=== PATIENT | female | born 1935 | race Caucasian/White ===

== ENCOUNTER 2017-08-09 21:59 | Inpatient (IN) | payer MEDICARE ==
[2017-08-09 21:59] VITALS: BMI 17.5
[2017-08-09] MEDS ORDERED: Sodium Chloride 0.9% 1,000 ML IV STA (22:20)
[2017-08-09] MEDS ORDERED: levoFLOXacin 750 mg in D5W 150 ML BAG IVPB STA (22:22)
[2017-08-09] MEDS ORDERED: levoFLOXacin 750 mg in D5W 750 MG/150 ML BAG IVPB STA (22:28)
[2017-08-09 22:44] LABS: VENOUS BLOOD GAS BASE EXCESS 4.2 mmol/L (0.0-2.0); VENOUS BLOOD GAS PCO2 50 mmHg (40-60); VENOUS BLOOD GAS PO2 24 mm/Hg (30-55); VENOUS BLOOD PH 7.39 (7.32-7.43)
--- NOTE | 2017-08-09 23:07 | ED PDOC ---
HPI: SOB/CHF/COPD Time Seen by Provider: 08/09/17 22:07 Chief Complaint (Nursing): Chest Pain Chief Complaint (Provider): Cough History Per: Patient, Family History/Exam Limitations: no limitations Onset/Duration Of Symptoms: Days (1) Additional Complaint(s): Pt reports chills, nonproductive cough, R sided chest pain and back pain X 1 day. Pt was discharged from [place] 2 weeks ago after being diagnosed with pneumonia. Past Medical History Vital Signs: Last Vital Signs Temp 98.4 F 08/15/17 08:00 Pulse 112 H 08/15/17 08:00 Resp 18 08/15/17 08:00 BP 89/53 L 08/15/17 08:00 Pulse Ox 97 08/15/17 08:00 - Medical History PMH: Arthritis, Rheumatoid Arthritis Denies: HIV, Chronic Kidney Disease - Family History Family History: States: Unknown Family Hx - Home Medications Home Medications: Ambulatory Orders Medication Instructions Recorded Calcium Carbonate/Vitamin D3 1 cap PO DAILY 08/10/17 [Calcium 600+D Softgel] Multivit-Min/FA/Lycopen/Lutein 1 tab PO DAILY 08/10/17 [Centrum Silver Tablet] - Allergies Allergies/Adverse Reactions: Allergies Allergy/AdvReac Type Severity Reaction Status Date / Time celecoxib [From Celebrex] Allergy RASH Verified 08/09/17 22:01 infliximab [From Remicade] Allergy RASH Verified 08/09/17 22:01 mesalamine Allergy RASH Verified 08/09/17 22:01 Penicillins Allergy RASH Verified 08/09/17 22:01 Sulfa (Sulfonamide Allergy RASH Verified 08/09/17 22:01 Antibiotics) Curb-65 Severity Score - CURB-65 Severity Score Confusion: No Bun >19mg/dl (>7mmol/L): No Respiratory Rate greater than/equal to 30: No Systolic BP <90 or Diastolic BP less than/equal 60mmHg: No Age >64: Yes Curb-65 Score: 1 Percentage 30-day mortality: 2.7% Review of Systems Constitutional: Positive for: Fever, Chills, Weakness Cardiovascular: Positive for: Chest Pain (R sided) Respiratory: Positive for: Cough, Shortness of Breath. Negative for: Hemoptysis , Sputum Gastrointestinal: Positive for: Nausea, Vomiting. Negative for: Abdominal Pain , Diarrhea Genitourinary Female: Negative for: Dysuria, Hematuria Musculoskeletal: Positive for: Back Pain Skin: Negative for: Rash, Lesions Neurological: Negative for: Weakness, Numbness, Incoordination, Change in Speech , Confusion, Seizures, Altered Mental Status, Headache, Dizziness Physical Exam - Reviewed Nursing Documentation Reviewed: Yes Vital Signs Reviewed: Yes - Physical Exam Appears: Positive for: Uncomfortable Head Exam: Positive for: ATRAUMATIC, NORMAL INSPECTION Skin: Positive for: Normal Color, Warm, Dry Eye Exam: Positive for: Normal appearance, EOMI, PERRL Neck: Positive for: Normal, Painless ROM, Supple Cardiovascular/Chest: Positive for: Tachycardia Respiratory: Positive for: Rhonchi. Negative for: Decreased Breath Sounds, Accessory Muscle Use, Wheezing Gastrointestinal/Abdominal: Positive for: Soft Back: Positive for: Normal Inspection Neurologic/Psych: Positive for: Alert, film reproducer II-XII, Oriented. Negative for: Motor/Sensory Deficits, Aphasia, Facial Droop - Laboratory Results Result Diagrams: 08/15/17 05:30 08/15/17 05:30 - ECG Interpretation Of ECG: ST @ 140, no ST-T changes. O2 Sat by Pulse Oximetry: 100 Pulse Ox Interpretation: Normal - Radiology X-Ray: Interpreted by Me X-Ray Interpretation: Infiltrates (RLL) Medical Decision Making Medical Decision Makin yo female with cough. - labs - EKG - CXR Accession No. : [id number] Patient Name / ID : SUZY DAILEY / [id number] Exam Date : 08/09/2017 22:49:03 ( Approved ) Study Comment : Sex / Age : F / 82Y Creator : sabra ashley Dictator : Carlos Leal MD Flower Stripper : Hand Wood Sander : Carlos Leal MD Approver2 : Report Date : 08/09/2017 22:56:50 My Comment : HISTORY: Sepsis Patient COMPARISON: 12/27/2014. 12/04/2014. FINDINGS: LUNGS: Right lower lobe infiltrate superimposed upon chronic interstitial lung disease. PLEURA: No significant pleural effusion identified, no pneumothorax apparent. CARDIOVASCULAR: No radiographic findings to suggest acute or significant cardiovascular disease. OSSEOUS STRUCTURES: No significant abnormalities. VISUALIZED UPPER ABDOMEN: Normal. OTHER FINDINGS: None. IMPRESSION: Right lower lobe infiltrate is presumed to be acute. Underlying interstitial lung disease. Disposition - Clinical Impression Clinical Impression: Pneumonia, Sepsis - Patient ED Disposition Is Patient to be Admitted: Yes - Disposition Disposition Time: 23:34 Condition: STABLE - Pt Status Changed To: Hospital Disposition Of: Inpatient - Admit Certification Admit to Inpatient:: After my assessment, the patient will require hospitalization for at least two midnights. This is because of the severity of symptoms shown, intensity of services needed, and/or the medical risk in this patient being treated as an outpatient. - POA Present On Arrival: None
[2017-08-09] MEDS ORDERED: HYDROmorphone 0.5 mg/0.5 ml ISec IVP STA (23:09)
[2017-08-09 23:27] LABS: PARTIAL THROMBOPLASTIN TIME 30.7 Seconds (25.6-37.1)
[2017-08-09 23:28] LABS: ALB/GLOB RATIO 1.1 (1.0-2.1); ALBUMIN 4.1 g/dL (3.5-5.0); ALT/SGPT 26 U/L (9-52); AST/SGOT 33 U/L (14-36); BLOOD UREA NITROGEN 15 mg/dl (7-17); CALCIUM 9.4 mg/dL (8.4-10.2); GFR AFRICAN-AMERICAN > 60; GFR NON-AFRICAN AMERICAN > 60; MAGNESIUM 1.6 MG/DL (1.6-2.3)
[2017-08-09 23:30] LABS: BASO # 0.1 K/uL (0.0-0.2); BASO % 0.6 % (0.0-2.0); EOS # 0.2 K/uL (0.0-0.7); EOS % 1.5 % (0.0-4.0); HEMOGLOBIN 12.6 g/dL (12.0-16.0); LYMPH # 0.8 K/uL (1.0-4.3); LYMPH % 8.1 % (20.0-40.0); MEAN CELL VOLUME 94.7 fl (81.0-99.0); MEAN CORPUSCULAR HEMOGLOBIN 30.6 pg (27.0-31.0); MEAN CORPUSCULAR HGB CONC 32.3 g/dL (33.0-37.0); MEAN PLATELET VOLUME 7.9 fl (7.2-11.7); MONO # 0.5 K/uL (0.0-0.8); NEUT # 8.8 K/uL (1.8-7.0); NEUT % 84.8 % (50.0-75.0); NRBC % 0.2 % (0.0-0.0); PLATELET COUNT 304 K/uL (130-400); RBC 4.12 Mil/uL (3.80-5.20); RED CELL DISTRIBUTION WIDTH 16.4 % (11.5-14.5); WHITE BLOOD COUNT 10.4 K/uL (4.8-10.8)
[2017-08-09] MEDS ORDERED: levoFLOXacin 750 mg in D5W 750 MG/150 ML BAG IVPB ONE (23:44)
[2017-08-10 01:35] LABS: ANISOCYTOSIS SLIGHT; BANDS 1 % (0-2); BASOPHIL 1 % (0-2); BURR CELLS SLIGHT; EOSINOPHIL 1 % (0-7); HYPOCHROMIC SLIGHT; LYMPHOCYTE 6 % (20-50); MONOCYTE 3 % (0-10); NEUTROPHIL 85 % (42-75); PLATELET ESTIMATE NORMAL (NORMAL); REACTIVE LYMPHOCYTES 3 % (0-0); SMUDGE CELLS PRESENT; TOTAL CELLS COUNTED 100
[2017-08-10 01:36] LABS: LARGE PLATELETS PRESENT; OVALOCYTES SLIGHT
[2017-08-10 02:40] LABS: VENOUS BLOOD GAS BASE EXCESS 0.3 mmol/L (0.0-2.0); VENOUS BLOOD GAS PCO2 48 mmHg (40-60); VENOUS BLOOD GAS PO2 36 mm/Hg (30-55); VENOUS BLOOD PH 7.35 (7.32-7.43)
[2017-08-10 05:42] LABS: SQUAMOUS EPITHIAL 1 /hpf (0-5); URINE BILIRUBIN NEGATIVE (NEGATIVE); URINE BLOOD NEGATIVE (NEGATIVE); URINE CLARITY SLIGHTY-CLOUDY (Clear); URINE COLOR YELLOW (YELLOW); URINE GLUCOSE (UA) NEG (Normal); URINE HYALINE CAST 0-2 /hpf (0-2); URINE LEUKOCYTE ESTERASE TRACE Leu/uL (Negative); URINE NITRATE NEGATIVE (NEGATIVE); URINE PROTEIN 30 mg/dL (NEGATIVE); URINE UROBILINOGEN 0.2-1.0 mg/dL (0.2-1.0)
[2017-08-10 07:42] LABS: BASO % 0.1 % (0.0-2.0); LYMPH # 0.3 K/uL (1.0-4.3); LYMPH % 2.9 % (20.0-40.0); MEAN CORPUSCULAR HEMOGLOBIN 30.9 pg (27.0-31.0); MEAN CORPUSCULAR HGB CONC 32.5 g/dL (33.0-37.0); MEAN PLATELET VOLUME 7.5 fl (7.2-11.7); MONO # 0.9 K/uL (0.0-0.8); MONO % 7.6 % (0.0-10.0); NEUT # 10.9 K/uL (1.8-7.0); NEUT % 89.4 % (50.0-75.0); NRBC % 0.1 % (0.0-0.0); RBC 3.15 Mil/uL (3.80-5.20); RED CELL DISTRIBUTION WIDTH 15.7 % (11.5-14.5); WHITE BLOOD COUNT 12.2 K/uL (4.8-10.8)
[2017-08-10 07:47] LABS: HEMOGLOBIN 9.7 g/dL (12.0-16.0)
[2017-08-10 08:05] LABS: ALBUMIN 3.1 g/dL (3.5-5.0); ALT/SGPT 26 U/L (9-52); AST/SGOT 24 U/L (14-36); BLOOD UREA NITROGEN 15 mg/dl (7-17); CALCIUM 8.4 mg/dL (8.4-10.2); GFR AFRICAN-AMERICAN > 60; GFR NON-AFRICAN AMERICAN > 60
[2017-08-10 08:18] LABS: T4 6.41 ug/dl (5.5-11.0)
[2017-08-10 08:32] LABS: T3 0.622 nmol/L (1.49-2.60)
[2017-08-10] MEDS ORDERED: levoFLOXacin 750 mg in D5W 750 MG/150 ML BAG IVPB SCH (09:00)
[2017-08-10] MEDS: Calcium-Vit D 500 mg-200 Units Tab UD PO SCH (09:00)
[2017-08-10] MEDS: Enoxaparin 40 mg Syringe SC SCH (09:00)
[2017-08-10] MEDS: Multivitamin With Minerals Tab PO SCH (09:00)
--- NOTE | 2017-08-10 13:41 | RAD ---
HISTORY: Sepsis Patient COMPARISON: 12/27/2014. 12/04/2014. FINDINGS: LUNGS: Right lower lobe infiltrate superimposed upon chronic interstitial lung disease. PLEURA: No significant pleural effusion identified, no pneumothorax apparent. CARDIOVASCULAR: No radiographic findings to suggest acute or significant cardiovascular disease. OSSEOUS STRUCTURES: No significant abnormalities. VISUALIZED UPPER ABDOMEN: Normal. OTHER FINDINGS: None. IMPRESSION: Right lower lobe infiltrate is presumed to be acute. Underlying interstitial lung disease.
--- NOTE | 2017-08-10 22:28 | CP.PCM.HP ---
<JiCamilla - Last Filed: 08/10/17 22:29> History of Present Illness - History of Present Illness History of Present Illness: 82 yr old F presented to ED with complaint of chills, nonproductive cough, right sided chest and back pain x 1 day. PMHx includes ulcerative colitis and rheumatoid arthritis. Patient reports 2 weeks ago she was discharged from [place] after a 5 day admission for pneumonia. Her symptoms had initially improved, but her 2 days ago and then her symptoms recurred and worsened 1 day ago. Denies syncope, weakness, dizziness or headaches. PMHx: ulcerative colitis and rheumatoid arthritis SurgHx: left colostomy FMHx: noncontributory SocHx: denies tobacco, Etoh or drugs Medications: see medication reconciliation Allergies: celecoxib, infliximab, mesalamin, penicillin, sulfa drugs Present on Admission - Present on Admission Any Indicators Present on Admission: No History of DVT/PE: No History of Uncontrolled Diabetes: No Urinary Catheter: No Decubitus Ulcer Present: No History Surgical Site Infection Following: None Review of Systems - Constitutional Constitutional: Chills, Fever. absent: Headache - EENT Eyes: absent: Blurred Vision, Change in Vision Ears: absent: Ear Discharge, Ear Pain Nose/Mouth/Throat: absent: Nasal Congestion, Nasal Discharge - Cardiovascular Cardiovascular: Chest Pain (right sided). absent: Dyspnea - Respiratory Respiratory: Cough. absent: Hemoptysis - Gastrointestinal Gastrointestinal: absent: Abdominal Pain, Nausea, Vomiting - Genitourinary Genitourinary: Flank Pain (right). absent: Difficulty Urinating, Dysuria - Neurological Neurological: absent: Syncope, Weakness - Psychiatric Psychiatric: absent: Anxiety - Endocrine Endocrine: absent: Polydipsia, Polyuria - Hematologic/Lymphatic Hematologic: absent: Easy Bleeding, Easy Bruising Past Patient History - Past Medical History & Family History Past Medical History?: Yes - Past Social History Smoking Status: Never Smoked - CARDIAC Hx Cardiac Disorders: No - PULMONARY Hx Pneumonia: Yes - NEUROLOGICAL Hx Neurological Disorder: No - HEENT Hx HEENT Problems: No - RENAL Hx Chronic Kidney Disease: No - ENDOCRINE/METABOLIC Hx Endocrine Disorders: No - HEMATOLOGICAL/ONCOLOGICAL Hx Human Immunodeficiency Virus (HIV): No - INTEGUMENTARY Hx Dermatological Problems: No - MUSCULOSKELETAL/RHEUMATOLOGICAL Hx Falls: No - GASTROINTESTINAL Hx Gastrointestinal Disorders: Yes Hx Colitis: Yes Hx Colostomy: Yes - GENITOURINARY/GYNECOLOGICAL Hx Genitourinary Disorders: No - PSYCHIATRIC Hx Substance Use: No - SURGICAL HISTORY Hx Surgeries: Yes Hx Orthopedic Surgery: Yes (BILATERAL KNEES, LT HIP REPLACEMENT) - ANESTHESIA Hx Anesthesia: Yes Hx Anesthesia Reactions: No Hx Malignant Hyperthermia: No Meds Allergies/Adverse Reactions: Allergies Allergy/AdvReac Type Severity Reaction Status Date / Time celecoxib [From Celebrex] Allergy RASH Verified 08/15/17 17:27 infliximab [From Remicade] Allergy RASH Verified 08/15/17 17:27 mesalamine Allergy RASH Verified 08/15/17 17:27 Penicillins Allergy RASH Verified 08/15/17 17:27 Sulfa (Sulfonamide Allergy RASH Verified 08/15/17 17:27 Antibiotics) Physical Exam - Constitutional Appears: No Acute Distress, Cachectic, Chronically Ill - Head Exam Head Exam: ATRAUMATIC, NORMOCEPHALIC - Eye Exam Eye Exam: EOMI, PERRL - ENT Exam ENT Exam: Mucous Membranes Moist - Neck Exam Neck exam: Positive for: Full Rom. Negative for: Lymphadenopathy - Respiratory Exam Respiratory Exam: Rales (RLL), NORMAL BREATHING PATTERN - Cardiovascular Exam Cardiovascular Exam: REGULAR RHYTHM, +S1, +S2 - GI/Abdominal Exam GI & Abdominal Exam: Normal Bowel Sounds, Soft (left sided colostomy bag with soft brown stool). absent: Tenderness - Extremities Exam Extremities exam: Positive for: full ROM. Negative for: calf tenderness, pedal edema - Neurological Exam Neurological exam: Alert, CN II-XII Intact, Oriented x3 - Psychiatric Exam Psychiatric exam: Normal Affect, Normal Mood - Skin Skin Exam: Dry, Warm Results - Vital Signs Recent Vital Signs: Last Vital Signs Temp 98.4 F 08/10/17 20:07 Pulse 112 H 08/10/17 20:07 Resp 20 08/10/17 20:07 BP 97/54 L 08/10/17 20:07 Pulse Ox 92 L 08/10/17 20:07 - Labs Result Diagrams: 08/10/17 06:45 08/10/17 06:45 Labs: Laboratory Results - last 24 hr 08/09/17 08/09/17 08/09/17 22:40 23:02 23:02 WBC 10.4 RBC 4.12 Hgb 12.6 Hct 39.1 MCV 94.7 MCH 30.6 MCHC 32.3 L RDW 16.4 H Plt Count 304 D MPV 7.9 Neut % (Auto) 84.8 H Lymph % (Auto) 8.1 L [place] % (Auto) 5.0 Eos % (Auto) 1.5 Baso % (Auto) 0.6 Neut # (Auto) 8.8 H Lymph # (Auto) 0.8 L [place] # (Auto) 0.5 Eos # (Auto) 0.2 Baso # (Auto) 0.1 Neutrophils % (Manual) 85 H Band Neutrophils % 1 Lymphocytes % (Manual) 6 L Reactive Lymphs % 3 H Monocytes % (Manual) 3 Eosinophils % (Manual) 1 Basophils % (Manual) 1 Smudge Cells Present Platelet Estimate Normal Large Platelets Present Hypochromasia (manual) Slight Anisocytosis (manual) Slight Ovalocytes Slight Dannielle Cells Slight PT INR APTT pO2 24 L VBG pH 7.39 VBG pCO2 50 VBG HCO3 26.7 VBG Total CO2 31.8 H VBG O2 Sat (Calc) 47.5 VBG Base Excess 4.2 H VBG Potassium 4.0 Sodium 142.0 141 Chloride 104.0 105 Glucose 141 H Lactate 2.7 H FiO2 21.0 Crit Value Called To Crit Value Called By Crit Value Read Back Blood Gas Notified Time Potassium 4.2 Carbon Dioxide 27 Anion Gap 13 BUN 15 Creatinine 0.7 Est GFR ( Amer) > 60 Est GFR (Non-Af Amer) > 60 Random Glucose 137 H Calcium 9.4 Phosphorus 2.9 Magnesium 1.6 Total Bilirubin 0.8 AST 33 ALT 26 Alkaline Phosphatase 81 Troponin I < 0.0120 Total Protein 8.0 Albumin 4.1 Globulin 3.9 Albumin/Globulin Ratio 1.1 Vitamin B12 Thyroxine (T4) Total T3 TSH 3rd Generation Venous Blood Potassium 4.0 Urine Color Urine Clarity Urine pH Ur Specific [place] Urine Protein Urine Glucose (UA) Urine Ketones Urine Blood Urine Nitrate Urine Bilirubin Urine Urobilinogen Ur Leukocyte Esterase Urine RBC (Auto) Urine Microscopic WBC Ur Squamous Epith Cells Hyaline Casts Influenza Typ A,B (EIA) 08/09/17 08/09/17 08/10/17 23:02 23:02 02:30 WBC RBC Hgb Hct MCV MCH MCHC RDW Plt Count MPV Neut % (Auto) Lymph % (Auto) [place] % (Auto) Eos % (Auto) Baso % (Auto) Neut # (Auto) Lymph # (Auto) [place] # (Auto) Eos # (Auto) Baso # (Auto) Neutrophils % (Manual) Band Neutrophils % Lymphocytes % (Manual) Reactive Lymphs % Monocytes % (Manual) Eosinophils % (Manual) Basophils % (Manual) Smudge Cells Platelet Estimate Large Platelets Hypochromasia (manual) Anisocytosis (manual) Ovalocytes [place] Cells PT 11.0 INR 1.0 APTT 30.7 pO2 36 VBG pH 7.35 VBG pCO2 48 VBG HCO3 24.3 VBG Total CO2 28.0 VBG O2 Sat (Calc) 74.1 H VBG Base Excess 0.3 VBG Potassium 4.0 Sodium 141.0 Chloride 107.0 Glucose 145 H Lactate 2.8 H FiO2 21.0 Crit Value Called To denis Young md Crit Value Called By Abdoul younger Crit Value Read Back Y Blood Gas Notified Time 239 Potassium Carbon Dioxide Anion Gap BUN Creatinine Est GFR ( Amer) Est GFR (Non-Af Amer) Random Glucose Calcium Phosphorus Magnesium Total Bilirubin AST ALT Alkaline Phosphatase Troponin I Total Protein Albumin Globulin Albumin/Globulin Ratio Vitamin B12 Thyroxine (T4) Total T3 TSH 3rd Generation Venous Blood Potassium 4.0 Urine Color Urine Clarity Urine pH Ur Specific [place] Urine Protein Urine Glucose (UA) Urine Ketones Urine Blood Urine Nitrate Urine Bilirubin Urine Urobilinogen Ur Leukocyte Esterase Urine RBC (Auto) Urine Microscopic WBC Ur Squamous Epith Cells Hyaline Casts Influenza Typ A,B (EIA) Negative for flu a/b 08/10/17 08/10/17 08/10/17 05:03 06:45 06:45 WBC 12.2 H RBC 3.15 L Hgb 9.7 L D Hct 29.9 L MCV 95.0 MCH 30.9 MCHC 32.5 L RDW 15.7 H Plt Count 203 D MPV 7.5 Neut % (Auto) 89.4 H Lymph % (Auto) 2.9 L [place] % (Auto) 7.6 Eos % (Auto) 0.0 Baso % (Auto) 0.1 Neut # (Auto) 10.9 H Lymph # (Auto) 0.3 L [place] # (Auto) 0.9 H Eos # (Auto) 0.0 Baso # (Auto) 0.0 Neutrophils % (Manual) Band Neutrophils % Lymphocytes % (Manual) Reactive Lymphs % Monocytes % (Manual) Eosinophils % (Manual) Basophils % (Manual) Smudge Cells Platelet Estimate Large Platelets Hypochromasia (manual) Anisocytosis (manual) Ovalocytes Dannielle Cells PT INR APTT pO2 VBG pH VBG pCO2 VBG HCO3 VBG Total CO2 VBG O2 Sat (Calc) VBG Base Excess VBG Potassium Sodium 140 Chloride 106 Glucose Lactate FiO2 Crit Value Called To Crit Value Called By Crit Value Read Back Blood Gas Notified Time Potassium 4.2 Carbon Dioxide 26 Anion Gap 12 BUN 15 Creatinine 0.7 Est GFR ( Amer) > 60 Est GFR (Non-Af Amer) > 60 Random Glucose 129 H Calcium 8.4 Phosphorus Magnesium Total Bilirubin 0.8 AST 24 ALT 26 Alkaline Phosphatase 48 Troponin I Total Protein 6.2 L Albumin 3.1 L D Globulin 3.2 Albumin/Globulin Ratio 1.0 Vitamin B12 506 Thyroxine (T4) 6.41 Total T3 0.622 L TSH 3rd Generation 1.22 Venous Blood Potassium Urine Color Yellow Urine Clarity Slighty-cloudy Urine pH 5.0 Ur Specific [place] 1.019 Urine Protein 30 Urine Glucose (UA) Neg Urine Ketones Negative Urine Blood Negative Urine Nitrate Negative Urine Bilirubin Negative Urine Urobilinogen 0.2-1.0 Ur Leukocyte Esterase Trace Urine RBC (Auto) 4 H Urine Microscopic WBC 9 H Ur Squamous Epith Cells 1 Hyaline Casts 0-2 Influenza Typ A,B (EIA) Assessment & Plan - Assessment and Plan (Free Text) Assessment: 82 yr old F admitted for sepsis secondary to community acquired pneumonia of unknown type. Patient has chronic small frame and BMI of 15.4 secondary to mild malnutrition and ulcerative colitis. -admit to tele -IVF -Levofloxacin 750mg IVP daily -continue home medications -cardiac monitoring -f/u Blood culture, urine culture -tylenol PRN fever, tylenol PRN pain -DVT prophylaxis: Lovenox 40mg SC QD - Date & Time Date: 08/10/17 Time: 08:00 <Carlos Tejeda - Last Filed: 08/16/17 14:21> Results - Vital Signs Recent Vital Signs: Last Vital Signs Temp 98.4 F 08/15/17 08:00 Pulse 105 H 08/15/17 13:00 Resp 18 08/15/17 08:00 BP 95/57 L 08/15/17 13:00 Pulse Ox 100 08/15/17 10:02 - Labs Result Diagrams: 08/15/17 05:30 08/15/17 05:30 Assessment & Plan - Assessment and Plan (Free Text) Assessment: Patient was personally seen and examined by me in rounds with residents. Available labs and diagnostic data reviewed. Case, Patient's condition and management plan discussed with residents in rounds. Agree with resident's documentation. Plan: As ordered. Carlos Tejeda MD
[2017-08-10] MEDS: levoFLOXacin 750 mg in D5W 750 MG/150 ML BAG IVPB SCH (23:33)
[2017-08-10] MEDS: Sodium Chloride 0.9% 1,000 ML IV SCH (23:34)
[2017-08-11] MEDS: Sodium Chloride 0.9% 1,000 ML IV SCH (08:30)
--- NOTE | 2017-08-11 08:35 | CP.PCM.PN ---
<Rebel Galloway - Last Filed: 08/11/17 09:10> Subjective - Date & Time of Evaluation Date of Evaluation: 08/11/17 Time of Evaluation: 08:31 - Subjective Subjective: - Patient seen resting at bedside comfortably this morning. Patient states she is feeling better. Has remained afebrile overnight. Denies any chest pain, N/V/ D Objective - Vital Signs/Intake and Output Vital Signs (last 24 hours): Temp Pulse Resp BP Pulse Ox 98.5 F 96 H 20 97/59 L 93 L 08/11/17 08:00 08/11/17 08:00 08/11/17 08:00 08/11/17 08:00 08/11/17 08:00 - Medications Medications: Current Medications Acetaminophen (Tylenol 325mg Tab) 650 mg PO Q6 PRN PRN Reason: Fever >100.4 F Acetaminophen (Tylenol 325mg Tab) 650 mg PO Q6 PRN PRN Reason: Pain, Mild (1-3) Alprazolam (Xanax) 0.25 mg PO Q12 PRN PRN Reason: Anxiety Stop: 08/17/17 10:05 Last Admin: 08/11/17 04:01 Dose: 0.25 mg Calcium/Vitamin D (Oyster Shell Calcium/Vitamin D 500 Mg-200 Iu) 1 tab PO DAILY [facility] Last Admin: 08/10/17 09:00 Dose: 1 tab Enoxaparin Sodium (Lovenox) 40 mg SC DAILY EMILY PRN Reason: Protocol Last Admin: 08/10/17 09:00 Dose: 40 mg Levofloxacin/Dextrose (Levaquin 750mg) 750 mg in 150 mls @ 100 mls/hr IVPB 2200 EMILY PRN Reason: Protocol Last Admin: 08/10/17 23:33 Dose: 100 mls/hr Sodium Chloride (Sodium Chloride 0.9%) 1,000 mls @ 100 mls/hr IV .Q10H [facility] Stop: 08/11/17 18:29 Last Admin: 08/10/17 23:34 Dose: 100 mls/hr Multivitamins/Minerals (Therapeutic-M Tab) 1 tab PO DAILY [facility] Last Admin: 08/10/17 09:00 Dose: 1 tab Ondansetron HCl (Zofran Inj) 4 mg IVP Q4 PRN PRN Reason: Nausea/Vomiting Last Admin: 08/10/17 03:00 Dose: 4 mg - Labs Labs: 08/10/17 06:45 08/10/17 06:45 PT 11.0 Seconds (9.8-13.1) 08/09/17 23:02 INR 1.0 (0.9-1.2) 08/09/17 23:02 APTT 30.7 Seconds (25.6-37.1) 08/09/17 23:02 - Constitutional Appears: No Acute Distress, Chronically Ill - Head Exam Head Exam: ATRAUMATIC - Eye Exam Eye Exam: EOMI, Normal appearance - ENT Exam ENT Exam: Mucous Membranes Moist - Neck Exam Neck Exam: Full ROM - Respiratory Exam Additional comments: Rales in RLL - Cardiovascular Exam Cardiovascular Exam: REGULAR RHYTHM, +S1, +S2 - GI/Abdominal Exam GI & Abdominal Exam: Soft, Normal Bowel Sounds. absent: Tenderness Additional comments: left sided colostomy bag - Neurological Exam Neurological Exam: Alert, Awake, CN II-XII Intact, Oriented x3 Assessment and Plan - Assessment and Plan (Free Text) Assessment: 82 yr old F admitted for sepsis secondary to community acquired pneumonia of unknown type. Patient has chronic small frame and BMI of 15.4 secondary to mild malnutrition and ulcerative colitis. -admit to tele -IVF -Levofloxacin 750mg IVP daily -continue home medications -cardiac monitoring - No growth in urine culture -f/u Blood culture,Final results: No growth in blood culture in 24 hours -tylenol PRN fever, tylenol PRN pain -DVT prophylaxis: Lovenox 40mg SC QD <Tejeda,Carlos K - Last Filed: 08/16/17 14:26> Objective - Vital Signs/Intake and Output Vital Signs (last 24 hours): Temp Pulse Resp BP Pulse Ox 98.4 F 105 H 18 95/57 L 100 08/15/17 08:00 08/15/17 13:00 08/15/17 08:00 08/15/17 13:00 08/15/17 10:02 - Labs Labs: 08/15/17 05:30 08/15/17 05:30 PT 11.0 Seconds (9.8-13.1) 08/09/17 23:02 INR 1.0 (0.9-1.2) 08/09/17 23:02 APTT 30.7 Seconds (25.6-37.1) 08/09/17 23:02 Assessment and Plan - Assessment and Plan (Free Text) Assessment: Patient was personally seen and examined by me in rounds with residents. Available labs and diagnostic data reviewed. Case, Patient's condition and management plan discussed with residents in rounds. Agree with resident's documentation. Plan: As ordered. Carlos Tejeda MD
[2017-08-11] MEDS: Multivitamin With Minerals Tab PO SCH (09:34)
[2017-08-11] MEDS: Enoxaparin 40 mg Syringe SC SCH (09:34)
[2017-08-11] MEDS: Calcium-Vit D 500 mg-200 Units Tab UD PO SCH (09:34)
--- NOTE | 2017-08-11 09:43 | CARD ---
APPROVED REPORT EKG Measurement Heart [id number] <Conclusion> Sinus tachycardia Rightward axis Possible Anterior infarct, age undetermined Abnormal ECG
[2017-08-11] MEDS: levoFLOXacin 750 mg in D5W 750 MG/150 ML BAG IVPB SCH (22:32)
[2017-08-12 06:27] LABS: BASO % 0.4 % (0.0-2.0); EOS # 0.2 K/uL (0.0-0.7); EOS % 3.6 % (0.0-4.0); HEMOGLOBIN 10.2 g/dL (12.0-16.0); LYMPH # 0.7 K/uL (1.0-4.3); LYMPH % 12.6 % (20.0-40.0); MEAN CELL VOLUME 94.8 fl (81.0-99.0); MEAN CORPUSCULAR HEMOGLOBIN 31.3 pg (27.0-31.0); MEAN PLATELET VOLUME 8.1 fl (7.2-11.7); MONO # 0.7 K/uL (0.0-0.8); MONO % 12.6 % (0.0-10.0); NEUT # 3.9 K/uL (1.8-7.0); NEUT % 70.8 % (50.0-75.0); NRBC % 0.1 % (0.0-0.0); RBC 3.27 Mil/uL (3.80-5.20); RED CELL DISTRIBUTION WIDTH 16.5 % (11.5-14.5); WHITE BLOOD COUNT 5.5 K/uL (4.8-10.8)
[2017-08-12] MEDS: Calcium-Vit D 500 mg-200 Units Tab UD PO SCH (09:03)
[2017-08-12] MEDS: Multivitamin With Minerals Tab PO SCH (09:03)
[2017-08-12] MEDS: Enoxaparin 40 mg Syringe SC SCH (09:04)
--- NOTE | 2017-08-12 12:00 | PN ---
DATE: 08/12/2017 SUBJECTIVE: The patient seen and examined. Interim events noted. The patient remains in Progressive Care Unit on telemetry monitoring, feels a little better. Chest pain improved. No shortness of breath, coughing also getting better. PHYSICAL EXAMINATION: GENERAL: The patient is in no acute distress. VITAL SIGNS: Stable. HEART: S1, S2 normal and regular. LUNGS: Good bilateral air exchange. The patient does have some crepitations on right side, which partially appears with coughing. ABDOMEN: Soft, nontender. EXTREMITIES: No edema, no calf swelling. No tenderness. No acute ischemia. CENTRAL NERVOUS SYSTEM: Essentially unchanged. DIAGNOSTIC DATA: Available diagnostic data reviewed. Telemetry monitoring does not show significant arrhythmias. ASSESSMENT AND PLAN: Overall, the patient's general medical condition is stable. Plan as ordered. Carlos Tejeda MD [id number]
--- NOTE | 2017-08-12 12:29 | RAD ---
HISTORY: pneumonia COMPARISON: Comparison chest dated 08/09/2016 TECHNIQUE: Chest PA and lateral FINDINGS: LUNGS: Patchy right lower lobe infiltrate. Mild left basilar atelectasis. . Blunting the right CP angle and posterior sulcus which could be secondary to effusion or chronic pleural thickening. . Questionable small effusion left lung base PLEURA: As above. No pneumothorax CARDIOVASCULAR: Normal. OSSEOUS STRUCTURES: No significant abnormalities. VISUALIZED UPPER ABDOMEN: Normal. OTHER FINDINGS: None. IMPRESSION: Patchy right lower lobe infiltrate. Mild left basilar atelectasis. . Blunting the right CP angle and posterior sulcus which could be secondary to effusion or chronic pleural thickening. . Questionable small effusion left lung base
[2017-08-12] MEDS: levoFLOXacin 750 mg in D5W 750 MG/150 ML BAG IVPB SCH (22:03)
[2017-08-13] MEDS: Benzocaine/Menthol (Cepacol) Lozenge PO PRN ×2 (00:45→06:26)
--- NOTE | 2017-08-13 08:51 | PN ---
DATE: 08/13/2017 SUBJECTIVE: The patient seen and examined. Interim events noted. The patient remains in Progressive Care Unit. On telemetry monitoring, complains of sore throat. No chest pain and no shortness of breath, PHYSICAL EXAMINATION GENERAL: The patient is in no acute distress. VITAL SIGNS: Stable. HEART: S1 and S2 normal and regular. LUNGS: Good bilateral air exchange. ABDOMEN: Soft and nontender. EXTREMITIES: No edema, no calf swelling, and no tenderness. No acute ischemia. CENTRAL NERVOUS SYSTEM: Essentially unchanged. DIAGNOSTIC DATA: Available diagnostic data reviewed. Telemetry monitoring does not show significant arrhythmias. ASSESSMENT AND PLAN: Overall, the patient's general medical condition is stable. Plan as ordered. Carlos Tejeda MD
[2017-08-13] MEDS: Enoxaparin 40 mg Syringe SC SCH (09:02)
[2017-08-13] MEDS: Calcium-Vit D 500 mg-200 Units Tab UD PO SCH (09:03)
[2017-08-13] MEDS: Multivitamin With Minerals Tab PO SCH (09:03)
[2017-08-13 16:43] LABS: MEAN CELL VOLUME 93.2 fl (81.0-99.0); MEAN CORPUSCULAR HEMOGLOBIN 30.9 pg (27.0-31.0); MEAN CORPUSCULAR HGB CONC 33.2 g/dL (33.0-37.0); RBC 3.55 Mil/uL (3.80-5.20); RED CELL DISTRIBUTION WIDTH 15.9 % (11.5-14.5); WHITE BLOOD COUNT 6.1 K/uL (4.8-10.8)
[2017-08-13 16:50] LABS: BLOOD UREA NITROGEN 7 mg/dl (7-17); CALCIUM 8.2 mg/dL (8.4-10.2); GFR AFRICAN-AMERICAN > 60; GFR NON-AFRICAN AMERICAN > 60
[2017-08-13] MEDS: Potassium CL 10 MEQ/50 ML 50 ML IVPB SCH ×3 (18:16→22:10)
[2017-08-13] MEDS ORDERED: Sodium Chloride 3% for Inhalation 4 ML VIAL.NEB IH PRN (18:50)
[2017-08-13] MEDS: Albuterol-Ipratrop 3 mg / 0.5 (3 ml) UD INH SCH (19:15)
[2017-08-13] MEDS: levoFLOXacin 750 mg in D5W 750 MG/150 ML BAG IVPB SCH (22:12)
[2017-08-14] MEDS: Potassium CL 10 MEQ/50 ML 50 ML IVPB SCH ×3 (00:07→03:30)
[2017-08-14] MEDS: Albuterol-Ipratrop 3 mg / 0.5 (3 ml) UD INH SCH ×5 (01:08→19:46)
--- NOTE | 2017-08-14 08:20 | PN ---
DATE: 08/14/2017 SUBJECTIVE: The patient seen and examined. Interim events noted. The patient remains in Progressive Care Unit with telemetry monitoring. She complains of dry hives. No chest pain and no shortness of breath. PHYSICAL EXAMINATION GENERAL: The patient is in no acute distress. VITAL SIGNS: Stable. HEART: S1 and S2 normal and regular. LUNGS: Good bilateral air exchange. ABDOMEN: Soft and nontender. EXTREMITIES: No edema and no calf swelling. No tenderness. No acute ischemia. CENTRAL NERVOUS SYSTEM: Exam is essentially unchanged. DIAGNOSTIC DATA: Available diagnostic data reviewed. Telemetry monitoring does not show significant arrhythmias. ASSESSMENT AND PLAN: Overall, the patient's general medical condition is stable and improving. Plan as ordered. Carlos Tejead MD
[2017-08-14 08:51] LABS: HEMOGLOBIN 10.8 g/dL (12.0-16.0); MEAN CELL VOLUME 93.3 fl (81.0-99.0); MEAN CORPUSCULAR HEMOGLOBIN 31.3 pg (27.0-31.0); MEAN CORPUSCULAR HGB CONC 33.6 g/dL (33.0-37.0); RBC 3.44 Mil/uL (3.80-5.20); RED CELL DISTRIBUTION WIDTH 15.9 % (11.5-14.5); WHITE BLOOD COUNT 7.2 K/uL (4.8-10.8)
[2017-08-14 09:07] LABS: ALB/GLOB RATIO 0.8 (1.0-2.1); ALBUMIN 2.7 g/dL (3.5-5.0); ALT/SGPT 22 U/L (9-52); AST/SGOT 23 U/L (14-36); BLOOD UREA NITROGEN 9 mg/dl (7-17); CALCIUM 7.9 mg/dL (8.4-10.2); GFR AFRICAN-AMERICAN > 60; GFR NON-AFRICAN AMERICAN > 60
[2017-08-14] MEDS: Promethazine 12.5 mg/10 ml Syrup PO SCH ×2 (12:48→12:55)
[2017-08-14] MEDS: Calcium-Vit D 500 mg-200 Units Tab UD PO SCH (12:48)
[2017-08-14] MEDS: Multivitamin With Minerals Tab PO SCH (12:49)
[2017-08-14] MEDS: levoFLOXacin 750 mg in D5W 750 MG/150 ML BAG IVPB SCH (22:20)
[2017-08-15] MEDS: Albuterol-Ipratrop 3 mg / 0.5 (3 ml) UD INH SCH ×3 (01:19→13:35)
[2017-08-15 06:04] LABS: HEMOGLOBIN 10.8 g/dL (12.0-16.0); MEAN CELL VOLUME 94.1 fl (81.0-99.0); MEAN CORPUSCULAR HEMOGLOBIN 30.7 pg (27.0-31.0); MEAN CORPUSCULAR HGB CONC 32.7 g/dL (33.0-37.0); RBC 3.52 Mil/uL (3.80-5.20); WHITE BLOOD COUNT 6.4 K/uL (4.8-10.8)
[2017-08-15 06:20] LABS: ALB/GLOB RATIO 0.9 (1.0-2.1); ALBUMIN 2.5 g/dL (3.5-5.0); ALT/SGPT 30 U/L (9-52); AST/SGOT 27 U/L (14-36); BLOOD UREA NITROGEN 9 mg/dl (7-17); CALCIUM 7.7 mg/dL (8.4-10.2); GFR AFRICAN-AMERICAN > 60; GFR NON-AFRICAN AMERICAN > 60
[2017-08-15 08:44] VITALS: RESP 18; TEMP 98.4
[2017-08-15] MEDS: Multivitamin With Minerals Tab PO SCH ×2 (08:59→09:08)
[2017-08-15] MEDS: Calcium-Vit D 500 mg-200 Units Tab UD PO SCH (08:59)
[2017-08-15] MEDS ORDERED: Potassium Chloride 20 mEq ER Tab PO ONE (09:00)
[2017-08-15] MEDS: Promethazine 12.5 mg/10 ml Syrup PO SCH ×4 (09:02→16:42)
[2017-08-15 10:02] VITALS: O2SAT 100
--- NOTE | 2017-08-15 10:45 | PN ---
DATE: 08/15/2017 SUBJECTIVE: The patient is seen and examined. Interim events noted. Consults noted and appreciated. The patient remains in Progressive Care Unit on telemetry monitoring. Nursing staff had reported low oxygen saturation. The patient feels okay. Complains of occasional cough. No chest pain. No shortness of breath. PHYSICAL EXAMINATION: GENERAL: The patient is in no acute distress. VITAL SIGNS: Stable. HEART: S1 and S2, normal and regular. LUNGS: Good bilateral air exchange. ABDOMEN: Soft and nontender. EXTREMITIES: No edema. No calf swelling. No tenderness. No acute ischemia. CENTRAL NERVOUS SYSTEM: Essentially unchanged. DIAGNOSTIC DATA: Available diagnostic data reviewed. Telemetry monitoring does not reveal significant arrhythmias. ASSESSMENT AND PLAN: Overall, the patient's general medical condition is slowly improving, and patient has generalized weakness. Plan as ordered. Carlos Tejeda MD
[2017-08-15] MEDS ORDERED: Pantoprazole 40 mg EC Tab PO SCH (11:30)
[2017-08-15 13:11] VITALS: BP 95/57; PULSE 105
--- NOTE | 2017-08-16 08:45 | CARD ---
APPROVED REPORT EKG Measurement Heart [id number] <Conclusion> Normal sinus rhythm Rightward axis Borderline ECG
== END 2017-08-15 16:45 | DRG 871 ==
LOC: H.ER 21:59 → H.ERHOLD 23:34 → H.TEL 08-10 16:05
PROVIDERS: ADMIT Internal Medicine; ATTEND Internal Medicine
PROC: 3E0F7GC Introduction of Other Therapeutic Substance into Respiratory Tract, Via Natural or Artificial Opening (ICD-10-PCS; principal; 2017-08-13)
DX: A41.9 Sepsis, unspecified organism (principal); J18.9 Pneumonia, unspecified organism; J44.0 Chronic obstructive pulmonary disease with (acute) lower respiratory infection; K51.90 Ulcerative colitis, unspecified, without complications; E44.1 Mild protein-calorie malnutrition; Z68.1 Body mass index [BMI] 19.9 or less, adult; M06.9 Rheumatoid arthritis, unspecified; Z87.01 Personal history of pneumonia (recurrent); Z93.3 Colostomy status; Z96.642 Presence of left artificial hip joint; M19.90 Unspecified osteoarthritis, unspecified site; J02.9 Acute pharyngitis, unspecified; M54.9 Dorsalgia, unspecified

== ENCOUNTER 2017-08-15 13:57 | Inpatient (IN) | payer OTHER, MEDICARE ==
[2017-08-15 17:27] VITALS: BMI 15.4
[2017-08-15] MEDS ORDERED: Benzocaine/Menthol (Cepacol) Lozenge PO PRN (17:59)
[2017-08-15] MEDS: Albuterol-Ipratrop 3 mg / 0.5 (3 ml) UD INH SCH (19:52)
[2017-08-15] MEDS ORDERED: Patient's Own Med (Vancomycin/0.9 % Sod Chloride [Vanco 1 Gram/150 Ml-0.9% Nacl] 1 GM) IV SCH (21:00)
[2017-08-15] MEDS ORDERED: levoFLOXacin 750 mg in D5W 150 ML BAG IVPB SCH (22:00)
[2017-08-16] MEDS: Albuterol-Ipratrop 3 mg / 0.5 (3 ml) UD INH SCH ×4 (01:15→19:23)
[2017-08-16 06:44] LABS: HEMOGLOBIN 11.2 g/dL (12.0-16.0); MEAN CELL VOLUME 93.9 fl (81.0-99.0); MEAN CORPUSCULAR HEMOGLOBIN 30.4 pg (27.0-31.0); MEAN CORPUSCULAR HGB CONC 32.4 g/dL (33.0-37.0); RBC 3.69 Mil/uL (3.80-5.20); RED CELL DISTRIBUTION WIDTH 15.9 % (11.5-14.5); WHITE BLOOD COUNT 5.4 K/uL (4.8-10.8)
[2017-08-16 06:58] LABS: ALB/GLOB RATIO 0.9 (1.0-2.1); ALBUMIN 2.6 g/dL (3.5-5.0); ALT/SGPT 32 U/L (9-52); AST/SGOT 33 U/L (14-36); BLOOD UREA NITROGEN 10 mg/dl (7-17); CALCIUM 8.2 mg/dL (8.4-10.2); GFR AFRICAN-AMERICAN > 60; GFR NON-AFRICAN AMERICAN > 60
--- NOTE | 2017-08-16 08:40 | CP.PCM.HP ---
History of Present Illness - History of Present Illness History of Present Illness: 82 yr old F who was initally admitted to telemetry for chills, nonproductive cough, right sided chest and back pain. She was treated for pneumonia w/ IV antibiotics. She had appeared deconditioned w/ mild malnutrition. Has been transferred to TCU for furthur IV antibiotics and reconditioning. PMHx: ulcerative colitis and rheumatoid arthritis SurgHx: left colostomy FMHx: noncontributory SocHx: denies tobacco, Etoh or drugs Medications: see medication reconciliation Allergies: celecoxib, infliximab, mesalamin, penicillin, sulfa drugs Present on Admission - Present on Admission Any Indicators Present on Admission: No Past Patient History - Past Medical History & Family History Past Medical History?: Yes - Past Social History Smoking Status: Never Smoked - CARDIAC Hx Cardiac Disorders: No - PULMONARY Hx Pneumonia: Yes - NEUROLOGICAL Hx Neurological Disorder: No - HEENT Hx HEENT Problems: No - RENAL Hx Chronic Kidney Disease: No - ENDOCRINE/METABOLIC Hx Endocrine Disorders: No - HEMATOLOGICAL/ONCOLOGICAL Hx AIDS: No Hx Human Immunodeficiency Virus (HIV): No - INTEGUMENTARY Hx Dermatological Problems: No - MUSCULOSKELETAL/RHEUMATOLOGICAL Hx Arthritis: Yes Hx Falls: No Hx Rheumatoid Arthritis: Yes - GASTROINTESTINAL Hx Gastrointestinal Disorders: Yes Hx Colitis: Yes Hx Colostomy: Yes - GENITOURINARY/GYNECOLOGICAL Hx Genitourinary Disorders: No - PSYCHIATRIC Hx Substance Use: No - SURGICAL HISTORY Hx Surgeries: Yes Hx Orthopedic Surgery: Yes (BILATERAL KNEES, LT HIP REPLACEMENT) - ANESTHESIA Hx Anesthesia: Yes Hx Anesthesia Reactions: No Hx Malignant Hyperthermia: No Meds Allergies/Adverse Reactions: Allergies Allergy/AdvReac Type Severity Reaction Status Date / Time celecoxib [From Celebrex] Allergy RASH Verified 08/15/17 17:27 infliximab [From Remicade] Allergy RASH Verified 08/15/17 17:27 mesalamine Allergy RASH Verified 08/15/17 17:27 Penicillins Allergy RASH Verified 08/15/17 17:27 Sulfa (Sulfonamide Allergy RASH Verified 08/15/17 17:27 Antibiotics) Physical Exam - Constitutional Appears: No Acute Distress, Chronically Ill - Head Exam Head Exam: NORMAL INSPECTION - Eye Exam Eye Exam: EOMI, Normal appearance - ENT Exam ENT Exam: Mucous Membranes Moist - Respiratory Exam Respiratory Exam: NORMAL BREATHING PATTERN. absent: Wheezes - Cardiovascular Exam Cardiovascular Exam: REGULAR RHYTHM, +S1, +S2 - GI/Abdominal Exam GI & Abdominal Exam: Normal Bowel Sounds. absent: Tenderness Additional comments: left sided colostomy bag - Neurological Exam Neurological exam: Alert, CN II-XII Intact, Oriented x3 Results - Vital Signs Recent Vital Signs: Last Vital Signs Temp 99.5 F 08/15/17 20:12 Pulse 101 H 08/15/17 20:12 Resp 20 08/15/17 20:12 BP 121/60 08/15/17 20:12 Pulse Ox 97 08/15/17 20:12 - Labs Result Diagrams: 08/16/17 06:24 08/16/17 06:24 Labs: Laboratory Results - last 24 hr 08/16/17 08/16/17 06:24 06:24 WBC 5.4 RBC 3.69 L Hgb 11.2 L Hct 34.6 MCV 93.9 MCH 30.4 MCHC 32.4 L RDW 15.9 H Plt Count 191 Sodium 140 Potassium 3.7 Chloride 102 Carbon Dioxide 33 H Anion Gap 9 L BUN 10 Creatinine 0.8 Est GFR ( Amer) > 60 Est GFR (Non-Af Amer) > 60 Random Glucose 86 Calcium 8.2 L Total Bilirubin 0.2 AST 33 ALT 32 Alkaline Phosphatase 50 Total Protein 5.7 L Albumin 2.6 L Globulin 3.1 Albumin/Globulin Ratio 0.9 L Assessment & Plan - Assessment and Plan (Free Text) Assessment: 82 yr old F admitted for sepsis secondary to community acquired pneumonia of unknown type. Patient has chronic small frame and BMI of 15.4 secondary to mild malnutrition and ulcerative colitis. 1) Community Aquired Pneumonia - C/W TCU care - c/w IV antibiotics ( Vanco Zosyn) - Blood culture and Urine Culture negative - PT/OT - 2) DVT PX - Lovenox
[2017-08-16] MEDS ORDERED: Patient's Own Med (Multivit-Min/Fa/Lycopen/Lutein [Centrum Silver Tablet] 1 TAB) PO SCH (09:00)
[2017-08-16] MEDS ORDERED: VITAMIN D3 PO SCH (09:00)
[2017-08-16] MEDS ORDERED: levoFLOXacin 750 mg in D5W 750 MG/150 ML BAG IVPB SCH (09:00)
[2017-08-16] MEDS ORDERED: CALCIUM CARBONATE PO SCH (09:00)
[2017-08-16] MEDS: Calcium-Vit D 500 mg-200 Units Tab UD PO SCH (09:01)
[2017-08-16] MEDS: Pantoprazole 40 mg EC Tab PO SCH (09:01)
[2017-08-16] MEDS: Multivitamin With Minerals Tab PO SCH (09:01)
[2017-08-16] MEDS: Promethazine 12.5 mg/10 ml Syrup PO SCH ×3 (09:02→16:01)
[2017-08-16] MEDS: Enoxaparin 40 mg Syringe SC SCH (12:40)
[2017-08-16] MEDS: levoFLOXacin 750 mg in D5W 750 MG/150 ML BAG IVPB SCH (16:08)
[2017-08-17] MEDS: Albuterol-Ipratrop 3 mg / 0.5 (3 ml) UD INH SCH ×4 (02:11→19:40)
--- NOTE | 2017-08-17 08:03 | CP.PCM.PN ---
Subjective - Date & Time of Evaluation Date of Evaluation: 08/17/17 Time of Evaluation: 08:01 - Subjective Subjective: - 82 YO F seen resting in bed comfortably. Denies any overnight events. Slept well overnight. Yesterday was reported to have HR in the 130's after physical therapy and albuterol treatment. Was reassessed by myself and was in 95 manually. Patient denies any chest pain, SOB, palpations, nausea, vomiting, dizziness. Objective - Vital Signs/Intake and Output Vital Signs (last 24 hours): Temp Pulse Resp BP Pulse Ox 98.1 F 110 H 20 132/68 97 08/16/17 19:59 08/16/17 22:00 08/16/17 22:00 08/16/17 19:59 08/16/17 22:00 - Medications Medications: Current Medications Acetaminophen (Tylenol 325mg Tab) 650 mg PO Q6 PRN PRN Reason: Pain, Mild (1-3) Acetaminophen (Tylenol 325mg Tab) 650 mg PO Q6 PRN PRN Reason: Fever >100.4 F Albuterol/Ipratropium (Duoneb 3 Mg/0.5 Mg (3 Ml) Ud) 3 ml INH RQ6 [facility] Last Admin: 08/17/17 07:36 Dose: 3 ml Alprazolam (Xanax) 0.25 mg PO Q12 PRN PRN Reason: Anxiety Stop: 08/22/17 18:00 Last Admin: 08/15/17 22:12 Dose: 0.25 mg Benzocaine/Menthol (Cepacol Sore Throat) 1 keena PO Q4 PRN PRN Reason: Sore Throat Last Admin: 08/16/17 06:25 Dose: 1 keena Calcium/Vitamin D (Oyster Shell Calcium/Vitamin D 500 Mg-200 Iu) 1 tab PO DAILY [facility] Last Admin: 08/16/17 09:01 Dose: 1 tab Enoxaparin Sodium (Lovenox) 40 mg SC DAILY [facility] PRN Reason: Protocol Last Admin: 08/16/17 12:40 Dose: 40 mg Levofloxacin/Dextrose (Levaquin 750mg) 750 mg in 150 mls @ 75 mls/hr IVPB DAILY @1700 [facility] Last Admin: 08/16/17 16:08 Dose: Not Given Vancomycin HCl 1 gm/ Sodium (Chloride) 250 mls @ 125 mls/hr IVPB Q12@0500,1700 [facility] Last Admin: 08/17/17 04:20 Dose: 125 mls/hr Multivitamins/Minerals (Therapeutic-M Tab) 1 tab PO DAILY [facility] Last Admin: 08/16/17 09:01 Dose: 1 tab Ondansetron HCl (Zofran Inj) 4 mg IVP Q4 PRN PRN Reason: Nausea/Vomiting Last Admin: 08/15/17 18:06 Dose: 4 mg Pantoprazole Sodium (Protonix Ec Tab) 40 mg PO DAILY [facility] Last Admin: 08/16/17 09:01 Dose: 40 mg Promethazine HCl (Phenergan Syrup) 12.5 mg PO TID [facility] Last Admin: 08/16/17 16:01 Dose: 12.5 mg - Labs Labs: 08/16/17 06:24 08/16/17 06:24 - Constitutional Appears: No Acute Distress, Chronically Ill - Head Exam Head Exam: NORMAL INSPECTION - Eye Exam Eye Exam: Normal appearance - ENT Exam ENT Exam: Mucous Membranes Moist - Respiratory Exam Respiratory Exam: Decreased Breath Sounds. absent: Rhonchi, Wheezes - Cardiovascular Exam Cardiovascular Exam: REGULAR RHYTHM, +S1, +S2 - GI/Abdominal Exam GI & Abdominal Exam: Soft, Normal Bowel Sounds Additional comments: left sided colostomy bag - Extremities Exam Extremities Exam: absent: Calf Tenderness - Neurological Exam Neurological Exam: Alert, Awake, CN II-XII Intact, Oriented x3 - Skin Skin Exam: Normal Color, Warm Assessment and Plan - Assessment and Plan (Free Text) Assessment: 82 yr old F admitted for sepsis secondary to community acquired pneumonia of unknown type. Patient has chronic small frame and BMI of 15.4 secondary to mild malnutrition and ulcerative colitis. 1) Community Aquired Pneumonia - C/W TCU care - c/w IV antibiotics ( Vanco Zosyn) - Blood culture and Urine Culture negative - PT/OT - 2) DVT PX - Lovenox
--- NOTE | 2017-08-17 08:32 | CP.PCM.CON ---
History of Present Illness - History of Present Illness History of Present Illness: Psychiatry consult note CC: "My recently." HPI: 82 yr old F who was initially admitted to telemetry for chills, nonproductive cough, right sided chest and back pain. She was treated for pneumonia w/ IV antibiotics. She had appeared deconditioned w/ mild malnutrition and was transferred to TCU for further IV antibiotics and reconditioning. Patient reports that her son and recently . She reports that her mood fluctuates, but that she does not feel chronically depressed. She denies feeling acutely anxious. No psychosis/SI/HI. She denies past psychiatric history and does not want to take psychotropic medications at this time. 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 Impression: 82 yo female admitted w/ PNA, w/ normal grief reaction, does not meet criteria for major depression or an anxiety disorder at this time. Recommendation: -Stop Xanax; do not recommend benzodiazepines due to increased risks of falls in the elderly and risk of respiratory depression -No acute psychiatric medications indicated at this time -No acute inpatient psychiatric admission indicated at this time Past Patient History - Past Medical History & Family History Past Medical History?: Yes - Past Social History Smoking Status: Never Smoked - CARDIAC Hx Cardiac Disorders: No - PULMONARY Hx Pneumonia: Yes - NEUROLOGICAL Hx Neurological Disorder: No - HEENT Hx HEENT Problems: No - RENAL Hx Chronic Kidney Disease: No - ENDOCRINE/METABOLIC Hx Endocrine Disorders: No - HEMATOLOGICAL/ONCOLOGICAL Hx AIDS: No Hx Human Immunodeficiency Virus (HIV): No - INTEGUMENTARY Hx Dermatological Problems: No - MUSCULOSKELETAL/RHEUMATOLOGICAL Hx Arthritis: Yes Hx Falls: No Hx Rheumatoid Arthritis: Yes - GASTROINTESTINAL Hx Gastrointestinal Disorders: Yes Hx Colitis: Yes Hx Colostomy: Yes - GENITOURINARY/GYNECOLOGICAL Hx Genitourinary Disorders: No - PSYCHIATRIC Hx Substance Use: No - SURGICAL HISTORY Hx Surgeries: Yes Hx Orthopedic Surgery: Yes (BILATERAL KNEES, LT HIP REPLACEMENT) - ANESTHESIA Hx Anesthesia: Yes Hx Anesthesia Reactions: No Hx Malignant Hyperthermia: No Meds Allergies/Adverse Reactions: Allergies Allergy/AdvReac Type Severity Reaction Status Date / Time celecoxib [From Celebrex] Allergy RASH Verified 08/15/17 17:27 infliximab [From Remicade] Allergy RASH Verified 08/15/17 17:27 mesalamine Allergy RASH Verified 08/15/17 17:27 Penicillins Allergy RASH Verified 08/15/17 17:27 Sulfa (Sulfonamide Allergy RASH Verified 08/15/17 17:27 Antibiotics) - Medications Medications: Current Medications Acetaminophen (Tylenol 325mg Tab) 650 mg PO Q6 PRN PRN Reason: Pain, Mild (1-3) Acetaminophen (Tylenol 325mg Tab) 650 mg PO Q6 PRN PRN Reason: Fever >100.4 F Albuterol/Ipratropium (Duoneb 3 Mg/0.5 Mg (3 Ml) Ud) 3 ml INH RQ6 [facility] Last Admin: 08/17/17 07:36 Dose: 3 ml Alprazolam (Xanax) 0.25 mg PO Q12 PRN PRN Reason: Anxiety Stop: 08/22/17 18:00 Last Admin: 08/15/17 22:12 Dose: 0.25 mg Benzocaine/Menthol (Cepacol Sore Throat) 1 keena PO Q4 PRN PRN Reason: Sore Throat Last Admin: 08/16/17 06:25 Dose: 1 keena Calcium/Vitamin D (Oyster Shell Calcium/Vitamin D 500 Mg-200 Iu) 1 tab PO DAILY [facility] Last Admin: 08/16/17 09:01 Dose: 1 tab Enoxaparin Sodium (Lovenox) 40 mg SC DAILY [facility] PRN Reason: Protocol Last Admin: 08/16/17 12:40 Dose: 40 mg Levofloxacin/Dextrose (Levaquin 750mg) 750 mg in 150 mls @ 75 mls/hr IVPB DAILY @1700 [facility] Last Admin: 08/16/17 16:08 Dose: Not Given Vancomycin HCl 1 gm/ Sodium (Chloride) 250 mls @ 125 mls/hr IVPB Q12@0500,1700 [facility] Last Admin: 08/17/17 04:20 Dose: 125 mls/hr Multivitamins/Minerals (Therapeutic-M Tab) 1 tab PO DAILY [facility] Last Admin: 08/16/17 09:01 Dose: 1 tab Ondansetron HCl (Zofran Inj) 4 mg IVP Q4 PRN PRN Reason: Nausea/Vomiting Last Admin: 08/15/17 18:06 Dose: 4 mg Pantoprazole Sodium (Protonix Ec Tab) 40 mg PO DAILY [facility] Last Admin: 08/16/17 09:01 Dose: 40 mg Promethazine HCl (Phenergan Syrup) 12.5 mg PO TID [facility] Last Admin: 08/16/17 16:01 Dose: 12.5 mg Results - Vital Signs Recent Vital Signs: Last Vital Signs Temp 98.9 F 08/17/17 08:11 Pulse 105 H 08/17/17 08:11 Resp 18 08/17/17 08:11 BP 128/60 08/17/17 08:11 Pulse Ox 98 08/17/17 08:11 - Labs Result Diagrams: 08/16/17 06:24 08/16/17 06:24
[2017-08-17] MEDS: Promethazine 12.5 mg/10 ml Syrup PO SCH ×3 (09:40→16:05)
[2017-08-17] MEDS: Pantoprazole 40 mg EC Tab PO SCH (09:40)
[2017-08-17] MEDS: Multivitamin With Minerals Tab PO SCH (09:40)
[2017-08-17] MEDS: Enoxaparin 40 mg Syringe SC SCH (09:40)
[2017-08-17] MEDS: Calcium-Vit D 500 mg-200 Units Tab UD PO SCH (09:41)
--- NOTE | 2017-08-17 13:13 | CP.PCM.CON ---
History of Present Illness - History of Present Illness History of Present Illness: 82 yr old F who was initally admitted to telemetry for chills, nonproductive cough, right sided chest and back pain. She was treated for pneumonia w/ IV antibiotics. She had appeared deconditioned w/ mild malnutrition. Has been transferred to TCU for furthur IV antibiotics and reconditioning. PMHx: ulcerative colitis and rheumatoid arthritis SurgHx: left colostomy bilat TKR THR FMHx: noncontributory SocHx: denies tobacco, Etoh or drugs Medications: see medication reconciliation Allergies: celecoxib, infliximab, mesalamin, penicillin, sulfa drugs Review of Systems - Constitutional Constitutional: As Per HPI, Anorexia - EENT Eyes: absent: As Per HPI, Blind Spots, Blurred Vision, Change in Vision, Decreased Night Vision, Diplopia, Discharge, Dry Eye, Exophthalmos, Floaters, Irritation, Itchy Eyes, Loss of Peripheral Vision, Pain, Photophobia, Requires Corrective Lenses, Sees Flashes, Spots in Vision, Tunnel Vision, Other Visual Disturbances, Loss of Vision, Other Ears: absent: As Per HPI, Decreased Hearing, Ear Discharge, Ear Pain, Tinnitus, Abnormal Hearing, Disequilibrium, Dizziness, Other Nose/Mouth/Throat: absent: As Per HPI, Epistaxis, Nasal Congestion, Nasal Discharge, Nasal Obstruction, Nasal Trauma, Nose Pain, Post Nasal Drip, Sinus Pain, Sinus Pressure, Bleeding Gums, Change in Voice, Dental Pain, Dry Mouth, Dysphagia, Halitosis, Hoarsness, Lip Swelling, Mouth Lesions, Mouth Pain, Odynophagia, Sore Throat, Throat Swelling, Tongue Swelling, Facial Pain, Neck Pain, Neck Mass, Other - Cardiovascular Cardiovascular: absent: As Per HPI, Acrocyanosis, Chest Pain, Chest Pain at Rest , Chest Pain with Activity, Claudication, Diaphoresis, Dyspnea, Dyspnea on Exertion, Edema, Irregular Heart Rhythm, Pain Radiating to Arm/Neck/Jaw, Leg Edema, Leg Ulcers, Lightheadedness, Orthopnea, Palpitations, Paroxysmal Nocturnal Dyspnea, Pedal Edema, Radiating Pain, Rapid Heart Rate, Slow Heart Rate, Syncope, Other - Respiratory Respiratory: As Per HPI, Cough, Dyspnea. absent: Hemoptysis - Gastrointestinal Gastrointestinal: absent: As Per HPI, Abdominal Pain, Belching, Bloating, Change in Bowel Habits, Change in Stool Character, Coffee Ground Emesis, Constipation, Cramping, Diarrhea, Dyspepsia, Dysphagia, Early Satiety, Excessive Flatus, Fecal Incontinence, Heartburn, Hematemesis, Hematochezia, Loose Stools, Melena, Nausea, Odynophagia, Temesmus, Vomiting, Other - Genitourinary Genitourinary: absent: As Per HPI, Change in Urinary Stream, Difficulty Urinating, Dysuria, Flank Pain, Hematuria, Pyuria, Nocturia, Urinary Incontinence, Urinary Frequency, Urinary Hesitance, Urinary Urgency, Voiding Freq/Small Amts, Freq UTI, Hx Renal/Bladder Calculi, Hx /Renal Surgery, Bladder Distension, Other - Reproductive: Female Reproductive:Female: absent: As Per HPI, Amenorrhea, Amenorrhea/ Control, Currently Menstual, Cycle <21 Days, Cycle >35 Days, Cycle Variable, Menses 1-7 Days, Menses >/= 8 Days, Menses Variable, Cycle > 4 Weeks Between, No Menses for 6 Months, Heavy Menses, Light Menses, Normal Menses, Spotting Between Cycles , S/P Hysterectomy, Menopausal, Post Menopausal, Premenarche, Abnormal Vaginal Bleeding, Dysmenorrhea, Dyspareunia, Genital Lesions, Genital Pruritis, Pelvic Pain, Prolapse Symptoms, Sexual Dysfunction, Vaginal Discharge, Vaginal Dryness , Vaginal Odor, Vaginal Pruritis, Other - Menstruation Menstruation: absent: As Per HPI, Amenorrhea, Amenorrhea/ Control, Currently Menstual, Cycle <21 Days, Cycle >35 Days, Cycle Variable, Menses 1-7 Days, Menses >/= 8 Days, Menses Variable, Cycle > 4 Weeks Between, No Menses for 6 Months, Heavy Menses, Light Menses, Normal Menses, Spotting Between Cycles , S/P Hysterectomy, Menopausal, Post Menopausal, Premenarche, Abnormal Vaginal Bleeding, Dysmenorrhea, Other - Musculoskeletal Musculoskeletal: As Per HPI - Integumentary Integumentary: absent: As Per HPI, Acne, Alopecia, Bleeding Lesions, Change in Hair, Change in Nails, Change in Pigmentation, Changing Lesions, Dry Skin, Erythema, Furuncle, Hirsutism, Lesions, New Lesions, Non-Healing Lesions, Photosensitivity, Pruritus, Rash, Skin Pain, Skin Ulcer, Sores, Striae, Swelling , Unusual Bruising, Wounds, Jaundice, Other - Neurological Neurological: absent: As Per HPI, Abnormal Gait, Abnormal Hearing, Abnormal Movements, Abnormal Speech, Behavioral Changes, Burning Sensations, Confusion, Convulsions, Disequilibrium, Dizziness, Numbness, Focal Weakness, Frequent Falls , Headaches, Lack of Coordination, Loss of Vision, Memory Loss, Paresthesias, Radicular Pain, Restless Legs, Sensory Deficit, Syncope, Tingling, Tremor, Vertigo, Weakness, Other Visual Disturbances, Other - Psychiatric Psychiatric: absent: As Per HPI, Abnormal Sleep Pattern, Anhedonia, Anxiety, Auditory Hallucinations, Behavioral Changes, Change in Appetite, Change in Libido, Confusion, Depression, Difficulty Concentrating, Hallucinations, Homicidal Ideation, Hopelessness, Irritability, Memory Loss, Mood Swings, Panic Attacks, Paranoia, Suicidal Ideation, Visual Hallucinations, Tactile Hallucinations, Other - Endocrine Endocrine: absent: As Per HPI, Change in Body Appearance, Change in Libido, Cold Intolorance, Deepening of Voice, Excessive Sweating, Fatigue, Flushing, Heat Intolorance, Increase in Ring/Shoe/Hat Size, Palpitations, Polydipsia, Polyphagia, Polyuria, Other - Hematologic/Lymphatic Hematologic: absent: As Per HPI, Easy Bleeding, Easy Bruising, Lymphadenopathy, Other Past Patient History - Past Medical History & Family History Past Medical History?: Yes - Past Social History Smoking Status: Never Smoked - CARDIAC Hx Cardiac Disorders: No - PULMONARY Hx Pneumonia: Yes - NEUROLOGICAL Hx Neurological Disorder: No - HEENT Hx HEENT Problems: No - RENAL Hx Chronic Kidney Disease: No - ENDOCRINE/METABOLIC Hx Endocrine Disorders: No - HEMATOLOGICAL/ONCOLOGICAL Hx AIDS: No Hx Human Immunodeficiency Virus (HIV): No - INTEGUMENTARY Hx Dermatological Problems: No - MUSCULOSKELETAL/RHEUMATOLOGICAL Hx Arthritis: Yes Hx Falls: No Hx Rheumatoid Arthritis: Yes - GASTROINTESTINAL Hx Gastrointestinal Disorders: Yes Hx Colitis: Yes Hx Colostomy: Yes - GENITOURINARY/GYNECOLOGICAL Hx Genitourinary Disorders: No - PSYCHIATRIC Hx Substance Use: No - SURGICAL HISTORY Hx Surgeries: Yes Hx Orthopedic Surgery: Yes (BILATERAL KNEES, LT HIP REPLACEMENT) - ANESTHESIA Hx Anesthesia: Yes Hx Anesthesia Reactions: No Hx Malignant Hyperthermia: No Meds Allergies/Adverse Reactions: Allergies Allergy/AdvReac Type Severity Reaction Status Date / Time celecoxib [From Celebrex] Allergy RASH Verified 08/15/17 17:27 infliximab [From Remicade] Allergy RASH Verified 08/15/17 17:27 mesalamine Allergy RASH Verified 08/15/17 17:27 Penicillins Allergy RASH Verified 08/15/17 17:27 Sulfa (Sulfonamide Allergy RASH Verified 08/15/17 17:27 Antibiotics) - Medications Medications: Current Medications Acetaminophen (Tylenol 325mg Tab) 650 mg PO Q6 PRN PRN Reason: Pain, Mild (1-3) Acetaminophen (Tylenol 325mg Tab) 650 mg PO Q6 PRN PRN Reason: Fever >100.4 F Albuterol/Ipratropium (Duoneb 3 Mg/0.5 Mg (3 Ml) Ud) 3 ml INH RQ6 [facility] Last Admin: 08/17/17 07:36 Dose: 3 ml Benzocaine/Menthol (Cepacol Sore Throat) 1 keena PO Q4 PRN PRN Reason: Sore Throat Last Admin: 08/16/17 06:25 Dose: 1 keena Calcium/Vitamin D (Oyster Shell Calcium/Vitamin D 500 Mg-200 Iu) 1 tab PO DAILY [facility] Last Admin: 08/17/17 09:41 Dose: 1 tab Enoxaparin Sodium (Lovenox) 40 mg SC DAILY [facility] PRN Reason: Protocol Last Admin: 08/17/17 09:40 Dose: 40 mg Levofloxacin/Dextrose (Levaquin 750mg) 750 mg in 150 mls @ 75 mls/hr IVPB DAILY @1700 [facility] Last Admin: 08/16/17 16:08 Dose: Not Given Vancomycin HCl 1 gm/ Sodium (Chloride) 250 mls @ 125 mls/hr IVPB Q12@0500,1700 [facility] Last Admin: 08/17/17 04:20 Dose: 125 mls/hr Multivitamins/Minerals (Therapeutic-M Tab) 1 tab PO DAILY [facility] Last Admin: 08/17/17 09:40 Dose: 1 tab Ondansetron HCl (Zofran Inj) 4 mg IVP Q4 PRN PRN Reason: Nausea/Vomiting Last Admin: 08/15/17 18:06 Dose: 4 mg Pantoprazole Sodium (Protonix Ec Tab) 40 mg PO DAILY [facility] Last Admin: 08/17/17 09:40 Dose: 40 mg Promethazine HCl (Phenergan Syrup) 12.5 mg PO TID [facility] Last Admin: 08/17/17 12:38 Dose: 12.5 mg Physical Exam - Constitutional Appears: Non-toxic, Cachectic, Chronically Ill - Head Exam Head Exam: ATRAUMATIC, NORMAL INSPECTION, NORMOCEPHALIC - Eye Exam Eye Exam: EOMI, Normal appearance, PERRL Pupil Exam: NORMAL ACCOMODATION, PERRL - ENT Exam ENT Exam: Mucous Membranes Moist, Normal Exam - Neck Exam Neck exam: Positive for: Normal Inspection - Respiratory Exam Respiratory Exam: Decreased Breath Sounds, Rales, Rhonchi - Cardiovascular Exam Cardiovascular Exam: REGULAR RHYTHM - GI/Abdominal Exam GI & Abdominal Exam: Normal Bowel Sounds, Soft. absent: Tenderness - Rectal Exam Rectal Exam: NORMAL INSPECTION - Exam Exam: Circumcision, NORMAL INSPECTION External exam: NORMAL EXTERNAL EXAM Speculum exam: NORMAL SPECULUM EXAM Bimanual exam: NORMAL BIMANUAL EXAM - Extremities Exam Extremities exam: Positive for: normal inspection, pedal pulses present. Negative for: calf tenderness, pedal edema, tenderness Additional comments: bilat tkr - Back Exam Back exam: NORMAL INSPECTION - Neurological Exam Neurological exam: Alert, CN II-XII Intact, Normal Gait, Oriented x3, Reflexes Normal - Psychiatric Exam Psychiatric exam: Normal Affect, Normal Mood - Skin Skin Exam: Dry, Intact, Normal Color, Warm Results - Vital Signs Recent Vital Signs: Last Vital Signs Temp 98.9 F 08/17/17 10:00 Pulse 110 H 08/17/17 10:00 Resp 20 08/17/17 10:00 BP 128/60 08/17/17 10:00 Pulse Ox 97 08/17/17 10:00 - Labs Result Diagrams: 08/16/17 06:24 08/16/17 06:24 Assessment & Plan (1) Dehydration Status: Acute (2) Pneumonia Status: Acute (3) Sepsis Status: Acute
[2017-08-17] MEDS: levoFLOXacin 750 mg in D5W 750 MG/150 ML BAG IVPB SCH (16:05)
[2017-08-18] MEDS: Albuterol-Ipratrop 3 mg / 0.5 (3 ml) UD INH SCH ×2 (01:22→07:33)
[2017-08-18 08:12] VITALS: BP 136/64; RESP 18; TEMP 98.4; O2SAT 97
[2017-08-18 08:16] LABS: BASO % 0.3 % (0.0-2.0); EOS % 0.2 % (0.0-4.0); HEMOGLOBIN 11.1 g/dL (12.0-16.0); LYMPH # 0.4 K/uL (1.0-4.3); LYMPH % 4.9 % (20.0-40.0); MEAN CELL VOLUME 93.1 fl (81.0-99.0); MEAN CORPUSCULAR HEMOGLOBIN 30.5 pg (27.0-31.0); MEAN CORPUSCULAR HGB CONC 32.8 g/dL (33.0-37.0); MEAN PLATELET VOLUME 7.8 fl (7.2-11.7); MONO # 0.3 K/uL (0.0-0.8); MONO % 3.6 % (0.0-10.0); NEUT # 6.8 K/uL (1.8-7.0); PLATELET COUNT 159 K/uL (130-400); RBC 3.65 Mil/uL (3.80-5.20); RED CELL DISTRIBUTION WIDTH 16.1 % (11.5-14.5); WHITE BLOOD COUNT 7.5 K/uL (4.8-10.8)
[2017-08-18] MEDS: Multivitamin With Minerals Tab PO SCH (08:17)
[2017-08-18] MEDS: Pantoprazole 40 mg EC Tab PO SCH (08:17)
[2017-08-18] MEDS: Calcium-Vit D 500 mg-200 Units Tab UD PO SCH (08:17)
[2017-08-18] MEDS: Enoxaparin 40 mg Syringe SC SCH (08:17)
[2017-08-18] MEDS: Promethazine 12.5 mg/10 ml Syrup PO SCH (08:17)
--- NOTE | 2017-08-18 08:21 | CP.PCM.PN ---
Subjective - Date & Time of Evaluation Date of Evaluation: 08/18/17 Time of Evaluation: 08:18 - Subjective Subjective: 82 YO F seen resting comfortably in bed. Slept well overnight. Patient had a fever of 101.5 yesterday evening. This morning patient is currently afebrile. Denies any chills, nausea, vomiting or diarrhea. Objective - Vital Signs/Intake and Output Vital Signs (last 24 hours): Temp Pulse Resp BP Pulse Ox 98.4 F 102 H 18 136/64 97 08/18/17 08:10 08/18/17 08:10 08/18/17 08:10 08/18/17 08:10 08/18/17 08:10 - Medications Medications: Current Medications Acetaminophen (Tylenol 325mg Tab) 650 mg PO Q6 PRN PRN Reason: Pain, Mild (1-3) Acetaminophen (Tylenol 325mg Tab) 650 mg PO Q6 PRN PRN Reason: Fever >100.4 F Last Admin: 08/17/17 16:03 Dose: 650 mg Albuterol/Ipratropium (Duoneb 3 Mg/0.5 Mg (3 Ml) Ud) 3 ml INH RQ6 [facility] Last Admin: 08/18/17 07:33 Dose: 3 ml Benzocaine/Menthol (Cepacol Sore Throat) 1 keena PO Q4 PRN PRN Reason: Sore Throat Last Admin: 08/16/17 06:25 Dose: 1 keena Calcium/Vitamin D (Oyster Shell Calcium/Vitamin D 500 Mg-200 Iu) 1 tab PO DAILY [facility] Last Admin: 08/18/17 08:17 Dose: 1 tab Enoxaparin Sodium (Lovenox) 40 mg SC DAILY [facility] PRN Reason: Protocol Last Admin: 08/18/17 08:17 Dose: 40 mg Levofloxacin/Dextrose (Levaquin 750mg) 750 mg in 150 mls @ 75 mls/hr IVPB DAILY @1700 [facility] Last Admin: 08/17/17 16:05 Dose: 75 mls/hr Vancomycin HCl 1 gm/ Sodium (Chloride) 250 mls @ 125 mls/hr IVPB Q12@0500,1700 [facility] Last Admin: 08/18/17 04:50 Dose: 125 mls/hr Multivitamins/Minerals (Therapeutic-M Tab) 1 tab PO DAILY [facility] Last Admin: 08/18/17 08:17 Dose: 1 tab Ondansetron HCl (Zofran Inj) 4 mg IVP Q4 PRN PRN Reason: Nausea/Vomiting Last Admin: 08/15/17 18:06 Dose: 4 mg Pantoprazole Sodium (Protonix Ec Tab) 40 mg PO DAILY [facility] Last Admin: 08/18/17 08:17 Dose: 40 mg Promethazine HCl (Phenergan Syrup) 12.5 mg PO TID [facility] Last Admin: 08/18/17 08:17 Dose: 12.5 mg - Labs Labs: 08/16/17 06:24 08/16/17 06:24 - Constitutional Appears: No Acute Distress, Chronically Ill - Head Exam Head Exam: NORMAL INSPECTION - Respiratory Exam Respiratory Exam: Decreased Breath Sounds, Clear to Ausculation Bilateral. absent: Rhonchi, Wheezes - Cardiovascular Exam Cardiovascular Exam: REGULAR RHYTHM, +S1, +S2 - GI/Abdominal Exam GI & Abdominal Exam: Soft. absent: Tenderness Additional comments: left sided colostomy bag - Extremities Exam Extremities Exam: absent: Calf Tenderness - Neurological Exam Neurological Exam: Alert, Awake, CN II-XII Intact, Oriented x3 - Skin Skin Exam: Normal Color, Warm Assessment and Plan - Assessment and Plan (Free Text) Assessment: 82 yr old F admitted for sepsis secondary to community acquired pneumonia of unknown type. Patient has chronic small frame and BMI of 15.4 secondary to mild malnutrition and ulcerative colitis. 1) Community Aquired Pneumonia - C/W TCU care - c/w IV antibiotics ( Vanco and Levofloxacin) - Blood culture, Urine Culture and x ray ordered. Since Patient had fever spike - ID on board - PT/OT - Vanco trough 29.6. Will discuss with ID, about adjustment in Vanco dosage 2) DVT PX - Lovenox
[2017-08-18 08:41] LABS: ALB/GLOB RATIO 0.9 (1.0-2.1); ALBUMIN 2.6 g/dL (3.5-5.0); CALCIUM 8.1 mg/dL (8.4-10.2)
[2017-08-18 09:57] LABS: LYMPHOCYTE 7 % (20-50); MONOCYTE 5 % (0-10); NEUTROPHIL 88 % (42-75); PLATELET ESTIMATE NORMAL (NORMAL); TOTAL CELLS COUNTED 100
[2017-08-18 09:58] LABS: ANISOCYTOSIS SLIGHT
[2017-08-18 10:00] LABS: HYPOCHROMIC SLIGHT; OVALOCYTES SLIGHT
[2017-08-18 11:58] VITALS: PULSE 120
--- NOTE | 2017-08-18 12:14 | PCM.RRT ---
I.Reason for MEDICAL DOSIMETRIST - A) Acute Change in Patient: Subjective: MEDICAL DOSIMETRIST Call Time: 11:17 MEDICAL DOSIMETRIST Arrival Time: 11:17 MEDICAL DOSIMETRIST Location: TCU rehabilitation room ([facility]) S: MEDICAL DOSIMETRIST was called by RN on a 82 y/o F due to dizziness and AMS. Pt was receiving physical therapy at the rehabilitation room when she became confused, unresponsive and complained of dizziness. O: -Vital Signs: BP 87/54, O2 sat 98%, temp 98.1degF, s. glucose 124, HR 99. -Physica exam: >Gen: Pt awake, confused, difficult to arouse, minimally verbal. >CV: S1 S2 present >Lungs: Diffuse rales and ronchi. No wheezing. >ABD: soft, non-tender, non-distended. MEDICAL DOSIMETRIST Interventions: - Pt transferred to her room, 710-1, in a wheelchair. - Oxygen supply by nasal cannula. - Pt became responsive, alert and oriented in person and place, followed commands, with good strength on b/l upper and lower extremities. - labs reviewed showed a Vancomycin trough of 29.6 and potassium 3.1. - IV NSS 500cc initiated. - EKG performed, showed ST/T changes when compared to previous one, possible T inversion on lateral leads and flattened T waves on rest of leads. Repeated Vitals: BP 110/52, Sat O2 99%, Temp 98degF A/P 82 y/p F admitted to TCU for management of CAP, presented a pre-syncopal episode. - Troponin ordered - Echocardiogram - Transfer to ER for further evaluation and management, need to rule out ACS/CT. - F/u urinalysis, blood cultures and CXR. MEDICAL DOSIMETRIST End: 11:40 MEDICAL DOSIMETRIST Leaders: Jen Evans ; Edin Castanon. MEDICAL DOSIMETRIST Residents: Dr Luque PGY-2, Dr Marr PGY-1, Dr Weiss PGY-1, Dr Corrales PGY- 1.
--- NOTE | 2017-08-18 12:24 | CP.PCM.DIS ---
Provider - Provider Date of Admission: 08/15/17 17:27 Attending physician: Carlos Tejeda MD Time Spent in preparation of Discharge (in minutes): 30 Hospital Course - Lab Results Lab Results: Most Recent Lab Values WBC 7.5 K/uL (4.8-10.8) 08/18/17 07:16 RBC 3.65 Mil/uL (3.80-5.20) L 08/18/17 07:16 Hgb 11.1 g/dL (12.0-16.0) L 08/18/17 07:16 Hct 34.0 % (34.0-47.0) 08/18/17 07:16 MCV 93.1 fl (81.0-99.0) 08/18/17 07:16 MCH 30.5 pg (27.0-31.0) 08/18/17 07:16 MCHC 32.8 g/dL (33.0-37.0) L 08/18/17 07:16 RDW 16.1 % (11.5-14.5) H 08/18/17 07:16 Plt Count 159 K/uL (130-400) 08/18/17 07:16 MPV 7.8 fl (7.2-11.7) 08/18/17 07:16 Neut % (Auto) 91.0 % (50.0-75.0) H 08/18/17 07:16 Lymph % (Auto) 4.9 % (20.0-40.0) L 08/18/17 07:16 Greene % (Auto) 3.6 % (0.0-10.0) 08/18/17 07:16 Eos % (Auto) 0.2 % (0.0-4.0) 08/18/17 07:16 Baso % (Auto) 0.3 % (0.0-2.0) 08/18/17 07:16 Neut # (Auto) 6.8 K/uL (1.8-7.0) 08/18/17 07:16 Lymph # (Auto) 0.4 K/uL (1.0-4.3) L 08/18/17 07:16 Greene # (Auto) 0.3 K/uL (0.0-0.8) 08/18/17 07:16 Eos # (Auto) 0.0 K/uL (0.0-0.7) 08/18/17 07:16 Baso # (Auto) 0.0 K/uL (0.0-0.2) 08/18/17 07:16 Neutrophils % (Manual) 88 % (42-75) H 08/18/17 07:16 Lymphocytes % (Manual) 7 % (20-50) L 08/18/17 07:16 Monocytes % (Manual) 5 % (0-10) 08/18/17 07:16 Platelet Estimate Normal (NORMAL) 08/18/17 07:16 Hypochromasia (manual) Slight 08/18/17 07:16 Anisocytosis (manual) Slight 08/18/17 07:16 Ovalocytes Slight 08/18/17 07:16 Sodium 143 mmol/l (132-148) 08/18/17 07:16 Potassium 3.1 MMOL/L (3.6-5.0) L 08/18/17 07:16 Chloride 103 mmol/L (98-107) 08/18/17 07:16 Carbon Dioxide 33 mmol/L (22-30) H 08/18/17 07:16 Anion Gap 10 (10-20) 08/18/17 07:16 BUN 11 mg/dl (7-17) 08/18/17 07:16 Creatinine 1.1 mg/dl (0.7-1.2) 08/18/17 07:16 Est GFR ( Amer) 58 08/18/17 07:16 Est GFR (Non-Af Amer) 48 08/18/17 07:16 Random Glucose 84 mg/dL (65-105) 08/18/17 07:16 Calcium 8.1 mg/dL (8.4-10.2) L 08/18/17 07:16 Total Bilirubin 0.5 mg/dl (0.2-1.3) 08/18/17 07:16 AST 35 U/L (14-36) 08/18/17 07:16 ALT 25 U/L (9-52) 08/18/17 07:16 Alkaline Phosphatase 49 U/L (38-126) 08/18/17 07:16 Total Protein 5.5 G/DL (6.3-8.2) L 08/18/17 07:16 Albumin 2.6 g/dL (3.5-5.0) L 08/18/17 07:16 Globulin 2.9 gm/dL (2.2-3.9) 08/18/17 07:16 Albumin/Globulin Ratio 0.9 (1.0-2.1) L 08/18/17 07:16 Vancomycin Trough 29.6 ug/mL (5.0-10.0) H 08/18/17 06:10 - Hospital Course Hospital Course: 82 yr old F who was initally admitted to telemetry for chills, nonproductive cough, right sided chest and back pain. She was treated for pneumonia w/ IV antibiotics. While in the TCU patient had an eppisode of dizziness and AMS while recieiving physiotherapy. BP was noted to be 87/54. Patient became more stable after she was given fluids, and put back in bed to lay down, will transfer to the ER to be reevaluated and sent to telemetry for further monitoring. Discharge Exam - Head Exam Head Exam: NORMAL INSPECTION - Respiratory Exam Respiratory Exam: Rales, NORMAL BREATHING PATTERN - Cardiovascular Exam Cardiovascular Exam: REGULAR RHYTHM, +S1, +S2 - GI/Abdominal Exam GI & Abdominal Exam: Soft Additional comments: left sided colostomy bag Discharge Plan - Discharge Medications Prescriptions: levoFLOXacin 750 mg in D5W [Levaquin 750MG] 750 mg IVPB Q12 #1 bag Vancomycin 1gm in NS 250ml [Vancomycin 1gm] 1 gm IVPB DAILY #1 bag - Follow Up Plan Condition: STABLE Disposition: HOME/ ROUTINE
[2017-08-18] MEDS ORDERED: Potassium Chloride 20 mEq/15 ml LIQ UD PO ONE ×2 (12:26→12:28)
--- NOTE | 2017-08-18 12:30 | CARD ---
APPROVED REPORT EKG Measurement Heart [id number] <Conclusion> Normal sinus rhythm ST & T wave abnormality, consider anterolateral ischemia Prolonged QT Abnormal ECG
--- NOTE | 2017-08-18 13:03 | RAD ---
HISTORY: fever spike COMPARISON: Chest radiograph dated 08/12/2017 TECHNIQUE: Chest PA and lateral FINDINGS: LUNGS: Stable chronic prominence of the bilateral interstitial markings with peripheral fibrotic changes. Bibasilar atelectasis. PLEURA: Small bilateral pleural effusions. No pneumothorax apparent. CARDIOVASCULAR: Atherosclerotic aortic calcifications. Cardiomediastinal silhouette unchanged. OSSEOUS STRUCTURES: Multilevel vertebral compression deformities. Unchanged. VISUALIZED UPPER ABDOMEN: Normal. OTHER FINDINGS: None. IMPRESSION: Small bilateral pleural effusions.
== END 2017-08-18 11:45 | disposition short-term general hospital (02) | DRG 194 ==
LOC: H.TCU 17:27
PROVIDERS: ADMIT Internal Medicine; ATTEND Internal Medicine
PROC: F07Z5FZ Bed Mobility Treatment using Assistive, Adaptive, Supportive or Protective Equipment (ICD-10-PCS; principal; 2017-08-15)
PROC: F07Z8FZ Transfer Training Treatment using Assistive, Adaptive, Supportive or Protective Equipment (ICD-10-PCS; 2017-08-15)
PROC: F08Z1FZ Dressing Techniques Treatment using Assistive, Adaptive, Supportive or Protective Equipment (ICD-10-PCS; 2017-08-15)
PROC: F07Z9FZ Gait Training/Functional Ambulation Treatment using Assistive, Adaptive, Supportive or Protective Equipment (ICD-10-PCS; 2017-08-15)
PROC: 5A0945Z Assistance with Respiratory Ventilation, 24-96 Consecutive Hours (ICD-10-PCS; 2017-08-15)
DX: J18.9 Pneumonia, unspecified organism (principal); E44.1 Mild protein-calorie malnutrition; K51.90 Ulcerative colitis, unspecified, without complications; M06.9 Rheumatoid arthritis, unspecified; Z68.1 Body mass index [BMI] 19.9 or less, adult; Z88.0 Allergy status to penicillin; Z93.3 Colostomy status; Z96.642 Presence of left artificial hip joint; R41.82 Altered mental status, unspecified; R42 Dizziness and giddiness

== ENCOUNTER 2017-08-18 11:50 | Inpatient (IN) | payer MEDICARE ==
[2017-08-18 11:50] VITALS: BMI 15.4
--- NOTE | 2017-08-18 13:36 | ED PDOC ---
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 Patient was in TCU, while she was undergoing physical therapy, she felt lightheaded and a rapid response team was called. Patient was noted to have low blood pressure. She states symptoms were moderate initially but have now resolved. She denies any chest pain, shortness of breath, fever, chills, nausea or vomit. No further medical complaints. PMD: None provided. Past Medical History Reviewed: Historical Data, Nursing Documentation, Vital Signs Vital Signs: Last Vital Signs Temp 98.9 F 08/18/17 12:15 Pulse 98 H 08/18/17 12:15 Resp 16 08/18/17 12:15 BP 110/49 L 08/18/17 12:15 Pulse Ox 98 08/18/17 12:15 - Medical History PMH: Arthritis, Pneumonia, Rheumatoid Arthritis Denies: HIV, Chronic Kidney Disease - Surgical History Surgical History: No Surg Hx - Family History Family History: States: Unknown Family Hx - Social History Current smoker - smoking cessation education provided: No Alcohol: None Drugs: Denies - Home Medications Home Medications: Ambulatory Orders Medication Instructions Recorded Acetaminophen [Tylenol 325mg tab] 650 mg PO Q6 PRN tab 08/15/17 Albuterol/Ipratropium [Duoneb 3 3 ml INH RQ6 neb 08/15/17 mg/0.5 mg (3 ml) UD] Benzocaine/Menthol [Cepacol Sore 1 keena PO Q4 PRN keena 08/15/17 Throat] Pantoprazole [Protonix EC Tab] 40 mg PO DAILY ect 08/15/17 Promethazine [Phenergan Syrup] 12.5 mg PO TID dose 08/15/17 Calcium/Vitamin D [Oyster Shell 1 tab PO DAILY tab 08/18/17 Calcium/Vitamin D 500 mg-200 IU] Enoxaparin [Lovenox] 40 mg SC DAILY syr 08/18/17 Multimineral/Multivitamin 1 tab PO DAILY tab 08/18/17 [Therapeutic-M Tab] Ondansetron [Zofran Inj] 4 mg IVP Q4 PRN vial 08/18/17 Vancomycin 1gm in NS 250ml 1 gm IVPB DAILY #1 bag 08/18/17 [Vancomycin 1gm] levoFLOXacin 750 mg in D5W 750 mg IV DAILY@1700 08/19/17 [Levaquin 750MG] - Allergies Allergies/Adverse Reactions: Allergies Allergy/AdvReac Type Severity Reaction Status Date / Time celecoxib [From Celebrex] Allergy RASH Verified 08/15/17 17:27 infliximab [From Remicade] Allergy RASH Verified 08/15/17 17:27 mesalamine Allergy RASH Verified 08/15/17 17:27 Penicillins Allergy RASH Verified 08/15/17 17:27 Sulfa (Sulfonamide Allergy RASH Verified 08/15/17 17:27 Antibiotics) Review of Systems ROS Statement: Except As Marked, All Systems Reviewed And Found Negative Constitutional: Negative for: Fever, Chills Cardiovascular: Positive for: Light Headedness. Negative for: Chest Pain Respiratory: Negative for: Shortness of Breath Gastrointestinal: Negative for: Nausea, Vomiting Physical Exam - Reviewed Nursing Documentation Reviewed: Yes Vital Signs Reviewed: Yes - Physical Exam Appears: Positive for: Non-toxic, No Acute Distress. Negative for: Well (frail ) Head Exam: Positive for: ATRAUMATIC, NORMAL INSPECTION, NORMOCEPHALIC Skin: Positive for: Normal Color, Warm, Dry Eye Exam: Positive for: Normal appearance, EOMI, PERRL Neck: Positive for: Painless ROM, Supple Cardiovascular/Chest: Positive for: Regular Rate, Rhythm. Negative for: Murmur Respiratory: Positive for: Normal Breath Sounds. Negative for: Respiratory Distress Gastrointestinal/Abdominal: Positive for: Normal Exam, Soft. Negative for: Tenderness, Guarding, Rebound Back: Positive for: Normal Inspection. Negative for: L CVA Tenderness, R CVA Tenderness, Vertebral Tenderness Extremity: Positive for: Normal ROM. Negative for: Pedal Edema, Deformity, Swelling Neurologic/Psych: Positive for: Alert, Oriented - Laboratory Results Result Diagrams: 08/19/17 04:39 08/20/17 06:17 - ECG ECG Rhythm: Positive for: Sinus Tachycardia Interpretation Of ECG: Normal axis, T-wave inversion in V4 V5 V6. Interpreted by me, sinus tachy with new T-wave inversion compared to 08/09/2017 Rate: 101 O2 Sat by Pulse Oximetry: 98 (RA) Pulse Ox Interpretation: Normal Medical Decision Making Medical Decision Making: Initial Impression: Hypotension Initial Plan: --EKG --CMP --Lipase --Troponin I --CBC w/ differential --PTT --PT --Chest one view [RAD] --Urine culture --reevaluation Scribe Attestation: Documented by [place], acting as a scribe for Reyes Norman MD Provider Scribe Attestation: All medical record entries made by the Scribe were at my direction and personally dictated by me. I have reviewed the chart and agree that the record accurately reflects my personal performance of the history, physical exam, medical decision making, and the department course for this patient. I have also personally directed, reviewed, and agree with the discharge instructions and disposition. Disposition - Clinical Impression Clinical Impression: Hypokalemia, Dizziness - Patient ED Disposition Is Patient to be Admitted: Transfer of Care - Disposition Disposition Time: 16:00 Condition: FAIR Patient Signed Over To: Alejandro Betancourt
[2017-08-18 13:56] LABS: BASO % 0.4 % (0.0-2.0); EOS % 0.2 % (0.0-4.0); HEMOGLOBIN 11.1 g/dL (12.0-16.0); LYMPH # 0.3 K/uL (1.0-4.3); LYMPH % 3.7 % (20.0-40.0); MEAN CELL VOLUME 93.1 fl (81.0-99.0); MEAN CORPUSCULAR HGB CONC 33.3 g/dL (33.0-37.0); MEAN PLATELET VOLUME 7.4 fl (7.2-11.7); MONO # 0.4 K/uL (0.0-0.8); MONO % 3.9 % (0.0-10.0); NEUT # 8.4 K/uL (1.8-7.0); NEUT % 91.8 % (50.0-75.0); NRBC % 0.1 % (0.0-0.0); PLATELET COUNT 170 K/uL (130-400); RBC 3.57 Mil/uL (3.80-5.20); RED CELL DISTRIBUTION WIDTH 16.2 % (11.5-14.5); WHITE BLOOD COUNT 9.1 K/uL (4.8-10.8)
--- NOTE | 2017-08-18 13:57 | RAD ---
PROCEDURE: CHEST RADIOGRAPH, 1 VIEW HISTORY: syncope COMPARISON: Chest radiograph performed approximately 3.5 hours prior FINDINGS: LUNGS: Stable chronic prominence of the bilateral interstitial markings with peripheral fibrotic changes. Bibasilar atelectasis. PLEURA: Small bilateral pleural effusions. No pneumothorax apparent. CARDIOVASCULAR: Atherosclerotic aortic calcifications. Cardiomediastinal silhouette unchanged. OSSEOUS STRUCTURES: Unchanged. VISUALIZED UPPER ABDOMEN: Normal. OTHER FINDINGS: None. IMPRESSION: No significant interval change.
[2017-08-18 14:19] LABS: ALB/GLOB RATIO 0.9 (1.0-2.1); ALBUMIN 2.6 g/dL (3.5-5.0); CALCIUM 7.8 mg/dL (8.4-10.2)
[2017-08-18 14:26] LABS: INR 1.2 (0.9-1.2); PARTIAL THROMBOPLASTIN TIME 51.8 Seconds (25.6-37.1); PROTHROMBIN TIME 12.8 Seconds (9.8-13.1)
--- NOTE | 2017-08-18 14:29 | CARD ---
APPROVED REPORT EKG Measurement Heart [id number] OR [id number] [id number] <Conclusion> Normal sinus rhythm Possible Left atrial enlargement T wave abnormality, consider lateral ischemia Prolonged QT Abnormal ECG
[2017-08-18 14:31] LABS: TROPONIN I 0.044 ng/mL (0.00-0.120)
[2017-08-18 14:35] LABS: LYMPHOCYTE 5 % (20-50); MONOCYTE 3 % (0-10); NEUTROPHIL 92 % (42-75); PLATELET ESTIMATE NORMAL (NORMAL); TOTAL CELLS COUNTED 100
[2017-08-18 14:37] LABS: ANISOCYTOSIS SLIGHT; HYPOCHROMIC SLIGHT; OVALOCYTES SLIGHT; SCHISTOCYTES SLIGHT; TEARDROP CELLS SLIGHT
--- NOTE | 2017-08-18 15:15 | CARD ---
APPROVED REPORT EXAM: Two-dimensional and M-mode echocardiogram with Doppler and color Doppler. Other Information Quality : GoodRhythm : NSR INDICATION Syncope Hypotension 2D DIMENSIONS IVSd1.05 (0.7-1.1cm)LVDd3.63 (3.9-5.9cm) LVOT Diameter2.05 (1.8-2.4cm)PWd0.67 (0.7-1.1cm) IVSs0.87 (0.8-1.2cm)LVDs2.76 (2.5-4.0cm) FS (%) 23.9 %PWs1.53 (0.8-1.2cm) M-Mode DIMENSIONS Left Atrium (MM)4.56 (2.5-4.0cm)IVSd0.97 (0.7-1.1cm) Aortic Root3.06 (2.2-3.7cm)LVDd4.88 (4.0-5.6cm) Aortic Cusp Exc.1.75 (1.5-2.0cm)PWd0.84 (0.7-1.1cm) IVSs1.81 cmFS (%) 60 % LVDs1.94 (2.0-3.8cm)PWs1.78 cm Mitral Valve E/A ratio0.0 TDI E/Lateral E'0.0E/Medial E'0.0 Pulmonary Valve PV Peak Ykdpmgdx96.1cm/s Tricuspid Valve TR Peak [id number] [id number] Peak Gr.27mmHg [id number] LEFT VENTRICLE The left ventricle is normal size. There is normal left ventricular wall thickness. The left ventricular function is normal. The left ventricular ejection fraction is within the normal range. The Ejection Fraction is 55-60%. There is normal LV segmental wall motion. The left ventricular diastolic function is normal. RIGHT VENTRICLE The right ventricle is normal size. The right ventricular systolic function is normal. ATRIA The left atrium size is normal. The right atrium size is normal. AORTIC VALVE The aortic valve is normal in structure. No aortic regurgitation is present. There is no aortic valvular stenosis. MITRAL VALVE Mitral annular calcification is mild. There is no mitral valve stenosis. There is no mitral valve regurgitation noted. TRICUSPID VALVE The tricuspid valve is normal in structure. There is mild tricuspid regurgitation. There is no tricuspid valve stenosis. PULMONIC VALVE The pulmonary valve is normal in structure. There is no pulmonic valvular regurgitation. GREAT VESSELS The aortic root is normal in size. The IVC is normal in size and collapses >50% with inspiration. PERICARDIAL EFFUSION The pericardium appears normal. <Conclusion> The left ventricle is normal size. The left ventricular function is normal. The left ventricular ejection fraction is within the normal range. The Ejection Fraction is 55-60%. There is mild tricuspid regurgitation.
--- NOTE | 2017-08-18 16:14 | ED PDOC ---
- Laboratory Results Result Diagrams: 08/18/17 13:48 08/18/17 13:48 Interpretation Of Abn Labs: 3.3 k; - ECG ECG: Positive for: Interpreted By Me, Viewed By Me ECG Rhythm: Positive for: Nonspecific Changes O2 Sat by Pulse Oximetry: 98 (RA) Pulse Ox Interpretation: Normal - Radiology X-Ray: Read By Radiologist X-Ray Interpretation: No Acute Disease - CT Scan/US ct Other Rad Studies (CT/US): Read By Radiologist Other Rad Interpretation: no acute - Progress ED Course And Treament: 1600: Took over care from Dr. Norman. Fu on labs and imaging. Here with near -syncope while get therapy. 1613: Stable. Spoke with Dr. Tejeda. Will admit and give further orders on the floor. AAOx3. GFR slightly low. Will hold off CTA for PE. Pt. with no symptoms for chest pain, dyspnea. Dr. Tejeda aware and will monitor. Disposition - Clinical Impression Clinical Impression: Hypokalemia, Dizziness - POA Present On Arrival: None - Disposition Disposition: Hospitalized as Observation Patient Disposition Time: 16:17 Condition: FAIR
[2017-08-18] MEDS ORDERED: Potassium Chloride 20 mEq ER Tab PO STA (16:15)
--- NOTE | 2017-08-18 17:33 | CT ---
PROCEDURE: CT HEAD WITHOUT CONTRAST. HISTORY: syncope COMPARISON: Noncontrast head CT performed 06/21/13 TECHNIQUE: Axial computed tomography images were obtained through the head/brain without intravenous contrast. Radiation dose: Total exam DLP = 870.31 mGy-cm. This CT exam was performed using one or more of the following dose reduction techniques: Automated exposure control, adjustment of the mA and/or kV according to patient size, and/or use of iterative reconstruction technique. FINDINGS: HEMORRHAGE: No intracranial hemorrhage. BRAIN: Diffuse atrophy with prominence of the ventricles and sulci noted. No mass effect or edema. Intracranial atherosclerosis. Scattered periventricular and subcortical white matter hypodensities, which are nonspecific, but often seen with chronic microvascular ischemic disease. Please note that MRI with diffusion imaging is more sensitive in the detection of acute ischemic event. VENTRICLES: No hydrocephalus. CALVARIUM: Unremarkable. PARANASAL SINUSES: Unremarkable as visualized. No significant inflammatory changes. MASTOID AIR CELLS: Unremarkable as visualized. No inflammatory changes. OTHER FINDINGS: None. IMPRESSION: Generalized atrophy. Nonspecific white matter changes.
[2017-08-18] MEDS ORDERED: Potassium Chloride 20 mEq ER Tab PO ONE (17:59)
[2017-08-18] MEDS ORDERED: Benzocaine/Menthol (Cepacol) Lozenge PO PRN (21:55)
[2017-08-18] MEDS ORDERED: levoFLOXacin 750 mg in D5W 150 ML BAG IVPB SCH (22:00)
[2017-08-19] MEDS: Albuterol-Ipratrop 3 mg / 0.5 (3 ml) UD INH SCH ×4 (02:04→19:26)
[2017-08-19 05:52] LABS: HEMOGLOBIN 10.1 g/dL (12.0-16.0); MEAN CORPUSCULAR HEMOGLOBIN 30.6 pg (27.0-31.0); MEAN CORPUSCULAR HGB CONC 32.5 g/dL (33.0-37.0); RBC 3.31 Mil/uL (3.80-5.20); RED CELL DISTRIBUTION WIDTH 16.5 % (11.5-14.5); WHITE BLOOD COUNT 8.4 K/uL (4.8-10.8)
[2017-08-19 06:26] LABS: ALB/GLOB RATIO 0.9 (1.0-2.1); ALBUMIN 2.4 g/dL (3.5-5.0); CALCIUM 7.7 mg/dL (8.4-10.2)
[2017-08-19] MEDS ORDERED: Potassium Chloride 20 mEq/15 ml LIQ UD PO ONE (07:58)
--- NOTE | 2017-08-19 08:04 | CP.PCM.HP ---
History of Present Illness - History of Present Illness History of Present Illness: 82 yr old F presented was being treated for sepsis/pneumonia undergoing physiotherapy in TCU had an episode of dizziness, hypotension followed an episode of AMS in which she was not responding fo 30 seconds. No jerking movement, LOC, or bowl or bladder incontinence. Patient was sent to the ER shortly after the episodes, patient was found to be hypokalemic with a K of 3.1 and was replaced. Troponin were negative. CT of head was negative. Patient did not have any recurrent episodes. Is transferred to [facility] for further monitoring. PMHx: ulcerative colitis and rheumatoid arthritis SurgHx: left colostomy FMHx: noncontributory SocHx: denies tobacco, Etoh or drugs Medications: see medication reconciliation Allergies: celecoxib, infliximab, mesalamin, penicillin, sulfa drugs Present on Admission - Present on Admission Any Indicators Present on Admission: No Past Patient History - Past Medical History & Family History Past Medical History?: Yes - Past Social History Smoking Status: Former Smoker - CARDIAC Hx Cardiac Disorders: No - PULMONARY Hx Pneumonia: Yes - NEUROLOGICAL Hx Neurological Disorder: No - HEENT Hx HEENT Problems: No - RENAL Hx Chronic Kidney Disease: No - ENDOCRINE/METABOLIC Hx Endocrine Disorders: No - HEMATOLOGICAL/ONCOLOGICAL Hx AIDS: No Hx Human Immunodeficiency Virus (HIV): No - INTEGUMENTARY Hx Dermatological Problems: No - MUSCULOSKELETAL/RHEUMATOLOGICAL Hx Arthritis: Yes Hx Falls: Yes Hx Rheumatoid Arthritis: Yes - GASTROINTESTINAL Hx Gastrointestinal Disorders: Yes Hx Colitis: Yes Hx Colostomy: Yes - GENITOURINARY/GYNECOLOGICAL Hx Genitourinary Disorders: No - PSYCHIATRIC Hx Psychophysiologic Disorder: No Hx Substance Use: No - SURGICAL HISTORY Hx Surgeries: Yes Hx Orthopedic Surgery: Yes (BILATERAL KNEES, LT HIP REPLACEMENT) Other/Comment: right hip sx with pin - ANESTHESIA Hx Anesthesia: Yes Hx Anesthesia Reactions: No Hx Malignant Hyperthermia: No Meds Allergies/Adverse Reactions: Allergies Allergy/AdvReac Type Severity Reaction Status Date / Time celecoxib [From Celebrex] Allergy RASH Verified 08/15/17 17:27 infliximab [From Remicade] Allergy RASH Verified 08/15/17 17:27 mesalamine Allergy RASH Verified 08/15/17 17:27 Penicillins Allergy RASH Verified 08/15/17 17:27 Sulfa (Sulfonamide Allergy RASH Verified 08/15/17 17:27 Antibiotics) Results - Vital Signs Recent Vital Signs: Last Vital Signs Temp 97.3 F L 08/19/17 05:40 Pulse 88 08/19/17 05:40 Resp 20 08/19/17 05:40 BP 121/58 L 08/19/17 05:40 Pulse Ox 98 08/19/17 05:40 - Labs Result Diagrams: 08/19/17 04:39 08/19/17 04:39 Labs: Laboratory Results - last 24 hr 08/18/17 08/18/17 08/18/17 13:48 13:48 13:48 WBC 9.1 RBC 3.57 L Hgb 11.1 L Hct 33.3 L MCV 93.1 MCH 31.0 MCHC 33.3 RDW 16.2 H Plt Count 170 MPV 7.4 Neut % (Auto) 91.8 H Lymph % (Auto) 3.7 L [place] % (Auto) 3.9 Eos % (Auto) 0.2 Baso % (Auto) 0.4 Neut # (Auto) 8.4 H Lymph # (Auto) 0.3 L [place] # (Auto) 0.4 Eos # (Auto) 0.0 Baso # (Auto) 0.0 Neutrophils % (Manual) 92 H Lymphocytes % (Manual) 5 L Monocytes % (Manual) 3 Platelet Estimate Normal Hypochromasia (manual) Slight Anisocytosis (manual) Slight Tear Drop Cells Slight Ovalocytes Slight Schistocytes Slight PT 12.8 INR 1.2 APTT 51.8 H Sodium 142 Potassium 3.3 L Chloride 103 Carbon Dioxide 33 H Anion Gap 9 L BUN 12 Creatinine 1.1 Est GFR ( Amer) 58 Est GFR (Non-Af Amer) 48 Random Glucose 99 Calcium 7.8 L Total Bilirubin 0.4 AST 33 ALT 28 Alkaline Phosphatase 49 Troponin I 0.0440 Total Protein 5.4 L Albumin 2.6 L Globulin 2.8 Albumin/Globulin Ratio 0.9 L Lipase 142 08/19/17 08/19/17 04:39 04:39 WBC 8.4 RBC 3.31 L Hgb 10.1 L Hct 31.1 L MCV 94.0 MCH 30.6 MCHC 32.5 L RDW 16.5 H Plt Count 155 MPV Neut % (Auto) Lymph % (Auto) [place] % (Auto) Eos % (Auto) Baso % (Auto) Neut # (Auto) Lymph # (Auto) [place] # (Auto) Eos # (Auto) Baso # (Auto) Neutrophils % (Manual) Lymphocytes % (Manual) Monocytes % (Manual) Platelet Estimate Hypochromasia (manual) Anisocytosis (manual) Tear Drop Cells Ovalocytes Schistocytes PT INR APTT Sodium 143 Potassium 3.3 L Chloride 103 Carbon Dioxide 30 Anion Gap 13 BUN 11 Creatinine 1.2 Est GFR ( Amer) 52 Est GFR (Non-Af Amer) 43 Random Glucose 77 Calcium 7.7 L Total Bilirubin 0.5 AST 25 ALT 23 Alkaline Phosphatase 47 Troponin I Total Protein 5.2 L Albumin 2.4 L Globulin 2.8 Albumin/Globulin Ratio 0.9 L Lipase Assessment & Plan - Assessment and Plan (Free Text) Assessment: 82 yr old F admitted for sepsis secondary to community acquired pneumonia of unknown type. Patient has chronic small frame and BMI of 15.4 secondary to mild malnutrition and ulcerative colitis. Patient was initially in TCU going under rehabilitation and had an eppisode of AMS now transfered to [facility] for further monitoring. 1) Eppisode of AMS (resolved) - CT head did not show any acute changes - Neurology consulted 1) Sepsis secondary to Community Aquired Pneumonia - c/w IV antibiotics ( Vanco and Levofloxacin) - ID on board - PT/OT - Vanco trough 29.6. Will decrease Vanco from Q12 to once a day 3) Hypokalemia - Replace potassium - F/U with K+ 3) DVT PX - Lovenox
[2017-08-19] MEDS: Pantoprazole 40 mg EC Tab PO SCH (08:29)
[2017-08-19] MEDS: Enoxaparin 40 mg Syringe SC SCH (08:29)
[2017-08-19] MEDS: Multivitamin With Minerals Tab PO SCH (08:29)
[2017-08-19] MEDS: Promethazine 12.5 mg/10 ml Syrup PO SCH ×3 (08:30→16:42)
[2017-08-19] MEDS: Calcium-Vit D 500 mg-200 Units Tab UD PO SCH (08:30)
[2017-08-19] MEDS ORDERED: levoFLOXacin 750 mg in D5W 750 MG/150 ML BAG IVPB SCH (09:00)
[2017-08-19] MEDS ORDERED: Patient's Own Med (Vancomycin 1gm In Ns 250ml [Vancomycin 1gm] 1 GM) IVPB SCH (09:00)
[2017-08-19] MEDS: levoFLOXacin 750 mg in D5W 750 MG/150 ML BAG IVPB SCH ×2 (21:25→22:00)
[2017-08-20 00:03] VITALS: RESP 18
[2017-08-20] MEDS: Albuterol-Ipratrop 3 mg / 0.5 (3 ml) UD INH SCH ×3 (01:05→13:33)
[2017-08-20 07:56] LABS: CALCIUM 8.1 mg/dL (8.4-10.2)
[2017-08-20] MEDS: Pantoprazole 40 mg EC Tab PO SCH (09:00)
[2017-08-20] MEDS: Enoxaparin 40 mg Syringe SC SCH (09:00)
[2017-08-20] MEDS: Multivitamin With Minerals Tab PO SCH (09:00)
[2017-08-20] MEDS: Promethazine 12.5 mg/10 ml Syrup PO SCH (10:00)
[2017-08-20] MEDS: Calcium-Vit D 500 mg-200 Units Tab UD PO SCH (10:00)
[2017-08-20 12:31] VITALS: BP 127/68; PULSE 99; TEMP 97.9; O2SAT 96
[2017-08-20] MEDS ORDERED: Potassium Chloride 20 mEq ER Tab PO STA (13:43)
[2017-08-20] MEDS ORDERED: Potassium Chloride 20 mEq ER Tab PO ONE ×2 (17:00→21:00)
[2017-08-21] MEDS ORDERED: Potassium Chloride 10 mEq ER Tab PO ONE (12:41)
--- NOTE | 2017-08-22 09:19 | PQF GENQUE ---
Dr. Tejeda, Please clarify the underlying cause of patient's altered mental status and relate that cause to the alteration in mental status: if known Cardiac condition Electrolyte/metabolic imbalance Infectious process Neurologic condition Psychiatric condition Respiratory condition Other condition (please specify) Clinically unable to determine Unknown H and P; Assessment: 82 yr old F admitted for sepsis secondary to community acquired pneumonia of unknown type. Patient has chronic small frame and BMI of 15.4 secondary to mild malnutrition and ulcerative colitis. Patient was initially in TCU going under rehabilitation and had an eppisode of AMS now transfered to [facility] for further monitoring. 1) Episode of AMS (resolved) - CT head did not show any acute changes - Neurology consulted 1) Sepsis secondary to Community Aquired Pneumonia - c/w IV antibiotics ( Vanco and Levofloxacin) - ID on board - PT/OT - Vanco trough 29.6. Will decrease Vanco from Q12 to once a day 3) Hypokalemia - Replace potassium - F/U with K+ This form is a permanent part of the medical record Clarification of your documentation is requested to better reflect the severity of illness and intensity of treatment of your patient. Indicators present [] Specify: [] [] Specify: [] [] Specify: [] [] Specify: [] Location in the medical record that reflects the above clinical findings: [] Treatment Provided: [] PHYSICIAN'S RESPONSE Based on your medical judgment of the clinical indicators outlined above please clarify the following: [] Practitioner response [] If unable to determine, please check the box, sign and date. Present On Admission (POA) Indicator: [] Present at the time of admission [] Not present at the time of admission [] Clinically Undetermined In responding to this query, please exercise your independent professional judgment. The fact that a question is asked does not imply that any particular answer is desired or expected. Thank you for your clarification on this documentation. If you have any questions please call. * Thank you, Clarissa Goldberg RN ext. #[phone] MTDD
== END 2017-08-20 15:25 | DRG 871 ==
LOC: H.ER 11:50 → H.ERHOLD 16:09 → H.TEL 18:57 → OBSVTOIN 08-19 12:01
PROVIDERS: ADMIT Internal Medicine; ATTEND Internal Medicine
DX: A41.9 Sepsis, unspecified organism (principal); J18.9 Pneumonia, unspecified organism; I95.9 Hypotension, unspecified; K51.90 Ulcerative colitis, unspecified, without complications; M06.9 Rheumatoid arthritis, unspecified; E44.1 Mild protein-calorie malnutrition; Z68.1 Body mass index [BMI] 19.9 or less, adult; E87.6 Hypokalemia; Z87.01 Personal history of pneumonia (recurrent); Z87.891 Personal history of nicotine dependence; Z93.3 Colostomy status; Z96.642 Presence of left artificial hip joint; K52.9 Noninfective gastroenteritis and colitis, unspecified; M19.90 Unspecified osteoarthritis, unspecified site; R41.82 Altered mental status, unspecified; R42 Dizziness and giddiness; R55 Syncope and collapse; Z96.653 Presence of artificial knee joint, bilateral

== ENCOUNTER 2017-08-20 13:11 | Inpatient (IN) | payer OTHER, MEDICARE ==
[2017-08-20 14:33] VITALS: BMI 13.8
[2017-08-20] MEDS ORDERED: Benzocaine/Menthol (Cepacol) Lozenge PO PRN (16:00)
[2017-08-20] MEDS ORDERED: levoFLOXacin 750 mg in D5W 150 ML BAG IVPB SCH (17:00)
[2017-08-20] MEDS ORDERED: Promethazine 12.5 mg/10 ml Syrup PO SCH (17:00)
[2017-08-20] MEDS ORDERED: Potassium Chloride 20 mEq ER Tab PO SCH (17:00)
[2017-08-20] MEDS ORDERED: Potassium Chloride 20 mEq ER Tab PO ONE ×2 (17:00→21:00)
[2017-08-20] MEDS: levoFLOXacin 750 mg in D5W 750 MG/150 ML BAG IVPB SCH (17:26)
[2017-08-20] MEDS: Promethazine 12.5 mg/10 ml Syrup PO SCH ×2 (17:27→17:33)
[2017-08-21] MEDS: Albuterol-Ipratrop 3 mg / 0.5 (3 ml) UD INH SCH ×4 (02:04→19:40)
[2017-08-21] MEDS: Promethazine 12.5 mg/10 ml Syrup PO SCH ×3 (08:05→16:00)
[2017-08-21] MEDS: Calcium-Vit D 500 mg-200 Units Tab UD PO SCH (08:08)
[2017-08-21] MEDS: Multivitamin With Minerals Tab PO SCH (08:11)
[2017-08-21] MEDS: Pantoprazole 40 mg EC Tab PO SCH (08:11)
[2017-08-21] MEDS: Enoxaparin 40 mg Syringe SC SCH (08:12)
[2017-08-21] MEDS ORDERED: Patient's Own Med (Vancomycin 1gm In Ns 250ml [Vancomycin 1gm] 1 GM) IVPB SCH (09:00)
[2017-08-21] MEDS: levoFLOXacin 750 mg in D5W 750 MG/150 ML BAG IVPB SCH (16:02)
[2017-08-22] MEDS: Albuterol-Ipratrop 3 mg / 0.5 (3 ml) UD INH SCH ×4 (01:16→19:25)
[2017-08-22 06:51] LABS: CALCIUM 7.9 mg/dL (8.4-10.2)
[2017-08-22] MEDS: Calcium-Vit D 500 mg-200 Units Tab UD PO SCH (08:21)
[2017-08-22] MEDS: Pantoprazole 40 mg EC Tab PO SCH (08:21)
[2017-08-22] MEDS: Enoxaparin 40 mg Syringe SC SCH (08:21)
[2017-08-22] MEDS: Multivitamin With Minerals Tab PO SCH (08:21)
[2017-08-22] MEDS: Promethazine 12.5 mg/10 ml Syrup PO SCH ×3 (08:22→16:49)
--- NOTE | 2017-08-22 09:35 | PN ---
DATE: 08/22/2017 SUBJECTIVE: The patient is seen and examined. Interim events noted. The patient remains in Transitional Care Unit. The patient feels okay. No coughing. No chest pain. No shortness of breath. No dizziness or loss of consciousness. PHYSICAL EXAMINATION: GENERAL: The patient is in no acute distress. VITAL SIGNS: Stable. HEART: S1 and S2, normal and regular. LUNGS: Good bilateral air exchange, some bibasilar crepitations still present. No rhonchi. ABDOMEN: Soft and nontender. No organomegaly. No fluid. Bowel sounds are present and normal. The patient has urostomy tube. It is functioning fine. EXTREMITIES: No edema. No calf swelling. No tenderness. No acute ischemia. CENTRAL NERVOUS SYSTEM: Essentially unchanged. DIAGNOSTIC DATA: Available diagnostic data reviewed. ASSESSMENT AND PLAN: Overall, the patient's general medical condition is stable. Plan as ordered. Carlos Tejeda MD
--- NOTE | 2017-08-22 09:37 | HP ---
CHIEF COMPLAINT: Transferred from medical floor. HISTORY OF PRESENT ILLNESS: This is a 82-year-old female with known case of ulcerative colitis leading to colostomy who was admitted to medical floor for pneumonia, who was being treated with IV antibiotics. The patient was transferred to Transitional Care Unit where the patient developed hypertension and altered mental status. The patient was sent to Emergency Room and was admitted. Workup was done and was negative and the patient improved spontaneously, so the patient was transferred back to Transitional Care for completion of treatment. Currently, the patient is looking arousable. Denies any specific complaints. generalized weakness. REVIEW OF SYSTEMS: Positive for generalized weakness, malaise, fatigue and tired. Review of systems otherwise is negative for headache, dizziness, syncope, loss of consciousness, chest pain,shortness of breath, nausea, vomiting, diarrhea, constipation, anemia, joint or extremity pain. Review of systems of all other organ system is unremarkable. PAST MEDICAL HISTORY: Significant for ulcerative colitis. PAST SURGICAL HISTORY: Remarkable for colostomy. PERSONAL HISTORY: The patient is currently nonsmoker, nondrinker, and no substance abuse. MEDICATIONS: The patient is on multiple medications, which is as per reconciliation sheet, which was reviewed and ordered. ALLERGIES: THE PATIENT IS ALLERGIC TO CELEBREX, , MESALAMINE, PENICILLIN, AND SULFA. FAMILY HISTORY: Noncontributory. PHYSICAL EXAMINATION: GENERAL: A well-built and well-nourished, frail elderly female, in no acute distress. VITAL SIGNS: Temperature 97.9, pulse 107, respirations 20, and blood pressure 122/60. HEENT: Pupils are reacting to light. No JVD. No thyromegaly. No lymphadenopathy. No nystagmus. Normocephalic and atraumatic skull. HEART: S1 and S2 normal and regular. No significant murmur, gallop or rub is heard. LUNGS: Shows good bilateral air exchange. No rales or rhonchi. ABDOMEN: Soft and nontender. No organomegaly. No fluid. Bowel sounds are present and normal. The patient has colostomy, which is functioning without any complication. EXTREMITIES: No edema. No calf swelling. No tenderness. No acute ischemia. CENTRAL NERVOUS SYSTEM: The patient is alert, awake, and oriented x3. There is no sign of any acute gross focal motor or sensory neurological deficits. DIAGNOSTIC DATA: Available diagnostic data reviewed. Workup in hospital reviewed. ADMITTING IMPRESSION: Pneumonia and ulcerative colitis. PLAN: As ordered. Case and plan discussed with the patient. Carlos Tejeda MD
[2017-08-22] MEDS: levoFLOXacin 750 mg in D5W 750 MG/150 ML BAG IVPB SCH (16:52)
[2017-08-23] MEDS: Albuterol-Ipratrop 3 mg / 0.5 (3 ml) UD INH SCH ×4 (01:10→20:11)
[2017-08-23 06:47] LABS: CALCIUM 7.8 mg/dL (8.4-10.2)
[2017-08-23 08:39] LABS: HEMOGLOBIN 10.3 g/dL (12.0-16.0); MEAN CELL VOLUME 92.1 fl (81.0-99.0); MEAN CORPUSCULAR HEMOGLOBIN 30.9 pg (27.0-31.0); MEAN CORPUSCULAR HGB CONC 33.6 g/dL (33.0-37.0); RBC 3.33 Mil/uL (3.80-5.20); RED CELL DISTRIBUTION WIDTH 15.9 % (11.5-14.5); WHITE BLOOD COUNT 7.3 K/uL (4.8-10.8)
[2017-08-23] MEDS: Enoxaparin 40 mg Syringe SC SCH (09:19)
[2017-08-23] MEDS: Promethazine 12.5 mg/10 ml Syrup PO SCH ×3 (09:19→16:27)
[2017-08-23] MEDS: Calcium-Vit D 500 mg-200 Units Tab UD PO SCH (09:20)
[2017-08-23] MEDS: Pantoprazole 40 mg EC Tab PO SCH (09:20)
[2017-08-23] MEDS: Multivitamin With Minerals Tab PO SCH (09:20)
--- NOTE | 2017-08-23 11:51 | CP.PCM.CON ---
History of Present Illness - History of Present Illness History of Present Illness: antibiotics reordered going for CXR will follow 82 yr old F who was initally admitted to telemetry for chills, nonproductive cough, right sided chest and back pain. She was treated for pneumonia w/ IV antibiotics. She had appeared deconditioned w/ mild malnutrition. Has been transferred to TCU for furthur IV antibiotics and reconditioning. PMHx: ulcerative colitis and rheumatoid arthritis SurgHx: left colostomy bilat TKR THR FMHx: noncontributory SocHx: denies tobacco, Etoh or drugs Medications: see medication reconciliation Allergies: celecoxib, infliximab, mesalamin, penicillin, sulfa drugs Review of Systems - Review of Systems All systems: reviewed and no additional remarkable complaints except - Constitutional Constitutional: As Per HPI - EENT Eyes: absent: As Per HPI, Blind Spots, Blurred Vision, Change in Vision, Decreased Night Vision, Diplopia, Discharge, Dry Eye, Exophthalmos, Floaters, Irritation, Itchy Eyes, Loss of Peripheral Vision, Pain, Photophobia, Requires Corrective Lenses, Sees Flashes, Spots in Vision, Tunnel Vision, Other Visual Disturbances, Loss of Vision, Other Ears: absent: As Per HPI, Decreased Hearing, Ear Discharge, Ear Pain, Tinnitus, Abnormal Hearing, Disequilibrium, Dizziness, Other Nose/Mouth/Throat: absent: As Per HPI, Epistaxis, Nasal Congestion, Nasal Discharge, Nasal Obstruction, Nasal Trauma, Nose Pain, Post Nasal Drip, Sinus Pain, Sinus Pressure, Bleeding Gums, Change in Voice, Dental Pain, Dry Mouth, Dysphagia, Halitosis, Hoarsness, Lip Swelling, Mouth Lesions, Mouth Pain, Odynophagia, Sore Throat, Throat Swelling, Tongue Swelling, Facial Pain, Neck Pain, Neck Mass, Other - Breasts Breasts: absent: As Per HPI, Change in Shape, Mass, Pain, Nipple Discharge, Nipple Inversion, Skin Changes, Swelling, Other - Cardiovascular Cardiovascular: absent: As Per HPI, Acrocyanosis, Chest Pain, Chest Pain at Rest , Chest Pain with Activity, Claudication, Diaphoresis, Dyspnea, Dyspnea on Exertion, Edema, Irregular Heart Rhythm, Pain Radiating to Arm/Neck/Jaw, Leg Edema, Leg Ulcers, Lightheadedness, Orthopnea, Palpitations, Paroxysmal Nocturnal Dyspnea, Pedal Edema, Radiating Pain, Rapid Heart Rate, Slow Heart Rate, Syncope, Other - Respiratory Respiratory: As Per HPI - Gastrointestinal Gastrointestinal: absent: As Per HPI, Abdominal Pain, Belching, Bloating, Change in Bowel Habits, Change in Stool Character, Coffee Ground Emesis, Constipation, Cramping, Diarrhea, Dyspepsia, Dysphagia, Early Satiety, Excessive Flatus, Fecal Incontinence, Heartburn, Hematemesis, Hematochezia, Loose Stools, Melena, Nausea, Odynophagia, Temesmus, Vomiting, Other - Genitourinary Genitourinary: absent: As Per HPI, Change in Urinary Stream, Difficulty Urinating, Dysuria, Flank Pain, Hematuria, Pyuria, Nocturia, Urinary Incontinence, Urinary Frequency, Urinary Hesitance, Urinary Urgency, Voiding Freq/Small Amts, Freq UTI, Hx Renal/Bladder Calculi, Hx /Renal Surgery, Bladder Distension, Other - Reproductive: Female Reproductive:Female: absent: As Per HPI, Amenorrhea, Amenorrhea/ Control, Currently Menstual, Cycle <21 Days, Cycle >35 Days, Cycle Variable, Menses 1-7 Days, Menses >/= 8 Days, Menses Variable, Cycle > 4 Weeks Between, No Menses for 6 Months, Heavy Menses, Light Menses, Normal Menses, Spotting Between Cycles , S/P Hysterectomy, Menopausal, Post Menopausal, Premenarche, Abnormal Vaginal Bleeding, Dysmenorrhea, Dyspareunia, Genital Lesions, Genital Pruritis, Pelvic Pain, Prolapse Symptoms, Sexual Dysfunction, Vaginal Discharge, Vaginal Dryness , Vaginal Odor, Vaginal Pruritis, Other - Menstruation Menstruation: absent: As Per HPI, Amenorrhea, Amenorrhea/ Control, Currently Menstual, Cycle <21 Days, Cycle >35 Days, Cycle Variable, Menses 1-7 Days, Menses >/= 8 Days, Menses Variable, Cycle > 4 Weeks Between, No Menses for 6 Months, Heavy Menses, Light Menses, Normal Menses, Spotting Between Cycles , S/P Hysterectomy, Menopausal, Post Menopausal, Premenarche, Abnormal Vaginal Bleeding, Dysmenorrhea, Other - Musculoskeletal Musculoskeletal: absent: As Per HPI, Abnormal Gait, Arthralgias, Atrophy, Back Pain, Deformity, Joint Swelling, Limited Range of Motion, Loss of Height, Muscle Cramps, Muscle Weakness, Myalgias, Neck Pain, Numbness, Radiating Pain into Limb, Stiffness, Tingling, Other - Integumentary Integumentary: absent: As Per HPI, Acne, Alopecia, Bleeding Lesions, Change in Hair, Change in Nails, Change in Pigmentation, Changing Lesions, Dry Skin, Erythema, Furuncle, Hirsutism, Lesions, New Lesions, Non-Healing Lesions, Photosensitivity, Pruritus, Rash, Skin Pain, Skin Ulcer, Sores, Striae, Swelling , Unusual Bruising, Wounds, Jaundice, Other - Neurological Neurological: absent: As Per HPI, Abnormal Gait, Abnormal Hearing, Abnormal Movements, Abnormal Speech, Behavioral Changes, Burning Sensations, Confusion, Convulsions, Disequilibrium, Dizziness, Numbness, Focal Weakness, Frequent Falls , Headaches, Lack of Coordination, Loss of Vision, Memory Loss, Paresthesias, Radicular Pain, Restless Legs, Sensory Deficit, Syncope, Tingling, Tremor, Vertigo, Weakness, Other Visual Disturbances, Other Past Patient History - Past Medical History & Family History Past Medical History?: Yes - Past Social History Smoking Status: Former Smoker - CARDIAC Hx Cardiac Disorders: No - PULMONARY Hx Pneumonia: Yes - NEUROLOGICAL Hx Neurological Disorder: No - HEENT Hx HEENT Problems: No - RENAL Hx Chronic Kidney Disease: No - ENDOCRINE/METABOLIC Hx Endocrine Disorders: No - HEMATOLOGICAL/ONCOLOGICAL Hx Human Immunodeficiency Virus (HIV): No - INTEGUMENTARY Hx Dermatological Problems: No - MUSCULOSKELETAL/RHEUMATOLOGICAL Hx Arthritis: Yes Hx Falls: Yes Hx Rheumatoid Arthritis: Yes - GASTROINTESTINAL Hx Gastrointestinal Disorders: Yes Hx Colitis: Yes Hx Colostomy: Yes - GENITOURINARY/GYNECOLOGICAL Hx Genitourinary Disorders: No - PSYCHIATRIC Hx Psychophysiologic Disorder: No Hx Substance Use: No - SURGICAL HISTORY Hx Surgeries: Yes Hx Orthopedic Surgery: Yes (BILATERAL KNEES, LT HIP REPLACEMENT) Other/Comment: right hip sx with pin - ANESTHESIA Hx Anesthesia: Yes Hx Anesthesia Reactions: No Hx Malignant Hyperthermia: No Meds Allergies/Adverse Reactions: Allergies Allergy/AdvReac Type Severity Reaction Status Date / Time celecoxib [From Celebrex] Allergy RASH Verified 08/15/17 17:27 infliximab [From Remicade] Allergy RASH Verified 08/15/17 17:27 mesalamine Allergy RASH Verified 08/15/17 17:27 Penicillins Allergy RASH Verified 08/15/17 17:27 Sulfa (Sulfonamide Allergy RASH Verified 08/15/17 17:27 Antibiotics) - Medications Medications: Current Medications Acetaminophen (Tylenol 325mg Tab) 650 mg PO Q6 PRN PRN Reason: Pain, Mild (1-3) Albuterol/Ipratropium (Duoneb 3 Mg/0.5 Mg (3 Ml) Ud) 3 ml INH RQ6 [facility] Last Admin: 08/23/17 07:32 Dose: 3 ml Benzocaine/Menthol (Cepacol Sore Throat) 1 keena PO Q4 PRN PRN Reason: Sore Throat Calcium/Vitamin D (Oyster Shell Calcium/Vitamin D 500 Mg-200 Iu) 1 tab PO DAILY [facility] Last Admin: 08/23/17 09:20 Dose: Not Given Enoxaparin Sodium (Lovenox) 40 mg SC DAILY [facility] PRN Reason: Protocol Last Admin: 08/23/17 09:19 Dose: 40 mg Levofloxacin/Dextrose (Levaquin 750mg) 750 mg in 150 mls @ 100 mls/hr IVPB DAILY@1700 [facility] Last Admin: 08/22/17 16:52 Dose: 100 mls/hr Vancomycin HCl 1 gm/ Sodium (Chloride) 250 mls @ 166.667 mls/hr IVPB DAILY@ 1700 [facility] Last Admin: 08/22/17 16:58 Dose: 166.667 mls/hr Multivitamins/Minerals (Therapeutic-M Tab) 1 tab PO DAILY [facility] Last Admin: 08/23/17 09:20 Dose: Not Given Ondansetron HCl (Zofran Inj) 4 mg IVP Q4 PRN PRN Reason: Nausea/Vomiting Last Admin: 08/22/17 13:14 Dose: 4 mg Pantoprazole Sodium (Protonix Ec Tab) 40 mg PO DAILY [facility] Last Admin: 08/23/17 09:20 Dose: Not Given Promethazine HCl (Phenergan Syrup) 12.5 mg PO TID [facility] Last Admin: 08/23/17 09:19 Dose: Not Given Physical Exam - Constitutional Appears: Confused, Cachectic, Chronically Ill - Head Exam Head Exam: NORMOCEPHALIC - Eye Exam Eye Exam: PERRL. absent: Scleral icterus - ENT Exam ENT Exam: Mucous Membranes Dry, Normal External Ear Exam - Neck Exam Neck exam: Negative for: Lymphadenopathy - Respiratory Exam Respiratory Exam: Decreased Breath Sounds - Cardiovascular Exam Cardiovascular Exam: REGULAR RHYTHM - GI/Abdominal Exam GI & Abdominal Exam: Diminished Bowel Sounds, Soft. absent: Tenderness - Rectal Exam Rectal Exam: Deferred - Exam Exam: NORMAL INSPECTION - Extremities Exam Extremities exam: Negative for: pedal edema - Back Exam Back exam: absent: CVA tenderness (L), CVA tenderness (R), paraspinal tenderness - Neurological Exam Neurological exam: Alert, Altered, CN II-XII Intact Results - Vital Signs Recent Vital Signs: Last Vital Signs Temp 97.5 F L 08/23/17 07:59 Pulse 106 H 08/23/17 07:59 Resp 18 08/23/17 07:59 BP 136/70 08/23/17 07:59 Pulse Ox 97 08/23/17 07:59 - Labs Result Diagrams: 08/23/17 05:50 08/23/17 05:50 Labs: Laboratory Results - last 24 hr 08/23/17 08/23/17 05:50 05:50 WBC 7.3 RBC 3.33 L Hgb 10.3 L Hct 30.7 L MCV 92.1 MCH 30.9 MCHC 33.6 RDW 15.9 H Plt Count 260 D Sodium 142 Potassium 3.5 L Chloride 104 Carbon Dioxide 25 Anion Gap 17 BUN 14 Creatinine 1.1 Est GFR ( Amer) 58 Est GFR (Non-Af Amer) 48 Random Glucose 77 Calcium 7.8 L Assessment & Plan (1) Pneumonia Status: Acute (2) Sepsis Status: Acute - Assessment and Plan (Free Text) Assessment: to complete 7 daYS LEVAQUIN
--- NOTE | 2017-08-23 11:57 | RAD ---
HISTORY: Pneumonia COMPARISON: 08/18/2017 TECHNIQUE: Chest two views. FINDINGS: LUNGS: Interval improvement in interstitial infiltrates/edema compared to the prior study. PLEURA: Persistent, stable pleural effusions. CARDIOVASCULAR: No radiographic findings to suggest acute or significant cardiovascular disease. OSSEOUS STRUCTURES: No significant abnormalities. VISUALIZED UPPER ABDOMEN: Normal. OTHER FINDINGS: None. IMPRESSION: Interval improvement in interstitial changes bilaterally. Stable bilateral pleural effusions.
--- NOTE | 2017-08-23 12:25 | PN ---
DATE: 08/23/2017 SUBJECTIVE: The patient is seen and examined. No interim events noted. The patient remains in Transitional Care Unit. Feels better. No dizziness. No chest pain. No shortness of breath. PHYSICAL EXAMINATION: GENERAL: The patient is in no acute distress. VITAL SIGNS: Stable. HEART: S1 and S2, normal and regular. LUNGS: Good bilateral air exchange. ABDOMEN: Soft and nontender. EXTREMITIES: No edema, no calf swelling. No tenderness. No acute ischemia. 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 DIAGNOSTIC DATA: Available diagnostic data reviewed. PLAN: Overall, the patient is slowly improving. Plan as ordered. Carlos Tejeda MD
[2017-08-23] MEDS: levoFLOXacin 750 mg in D5W 750 MG/150 ML BAG IVPB SCH (16:26)
[2017-08-24] MEDS: Albuterol-Ipratrop 3 mg / 0.5 (3 ml) UD INH SCH ×4 (01:07→19:04)
[2017-08-24] MEDS: Enoxaparin 40 mg Syringe SC SCH (08:37)
[2017-08-24] MEDS: Pantoprazole 40 mg EC Tab PO SCH (08:37)
[2017-08-24] MEDS: Promethazine 12.5 mg/10 ml Syrup PO SCH ×3 (08:38→17:10)
[2017-08-24] MEDS: Multivitamin With Minerals Tab PO SCH (08:38)
[2017-08-24] MEDS: Calcium-Vit D 500 mg-200 Units Tab UD PO SCH (08:38)
--- NOTE | 2017-08-24 12:48 | PN ---
DATE: 08/24/2017 SUBJECTIVE: The patient is seen and examined. Interim events noted. The patient remains in Transitional Care Unit. followup and interventions noted and appreciated. The patient feels okay. Denies any specific complaints. No chest pain or shortness of breath. PHYSICAL EXAMINATION: GENERAL: The patient is in no acute distress. VITAL SIGNS: Stable. HEART: S1 and S2, normal and regular. LUNGS: Good bilateral air exchange. ABDOMEN: Soft and nontender. EXTREMITIES: No edema. No calf swelling. No tenderness. No acute ischemia. 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 DIAGNOSTIC DATA: Available diagnostic data reviewed. Vancomycin level is more than 41 and vancomycin is currently not on the patient's list and was discontinued. PLAN: Overall, the patient is clinically stable. Plan as ordered. Carlos Tejeda MD
--- NOTE | 2017-08-24 12:56 | CP.PCM.PN ---
Subjective - Date & Time of Evaluation Date of Evaluation: 08/24/17 Time of Evaluation: 10:00 - Subjective Subjective: AFEBRILE AWAKE DENIES PAIN Objective - Vital Signs/Intake and Output Vital Signs (last 24 hours): Temp Pulse Resp BP Pulse Ox 97.9 F 96 H 20 133/61 99 08/24/17 08:37 08/24/17 08:37 08/24/17 08:37 08/24/17 08:37 08/24/17 08:37 - Medications Medications: Current Medications Acetaminophen (Tylenol 325mg Tab) 650 mg PO Q6 PRN PRN Reason: Pain, Mild (1-3) Albuterol/Ipratropium (Duoneb 3 Mg/0.5 Mg (3 Ml) Ud) 3 ml INH RQ6 [facility] Last Admin: 08/24/17 07:31 Dose: 3 ml Benzocaine/Menthol (Cepacol Sore Throat) 1 keena PO Q4 PRN PRN Reason: Sore Throat Calcium/Vitamin D (Oyster Shell Calcium/Vitamin D 500 Mg-200 Iu) 1 tab PO DAILY [facility] Last Admin: 08/24/17 08:38 Dose: 1 tab Enoxaparin Sodium (Lovenox) 40 mg SC DAILY [facility] PRN Reason: Protocol Last Admin: 08/24/17 08:37 Dose: 40 mg Levofloxacin/Dextrose (Levaquin 750mg) 750 mg in 150 mls @ 100 mls/hr IVPB DAILY@1700 [facility] Last Admin: 08/23/17 16:26 Dose: 100 mls/hr Multivitamins/Minerals (Therapeutic-M Tab) 1 tab PO DAILY [facility] Last Admin: 08/24/17 08:38 Dose: 1 tab Ondansetron HCl (Zofran Inj) 4 mg IVP Q4 PRN PRN Reason: Nausea/Vomiting Last Admin: 08/24/17 12:11 Dose: 4 mg Pantoprazole Sodium (Protonix Ec Tab) 40 mg PO DAILY [facility] Last Admin: 08/24/17 08:37 Dose: 40 mg Promethazine HCl (Phenergan Syrup) 12.5 mg PO TID [facility] Last Admin: 08/24/17 08:38 Dose: Not Given - Labs Labs: 08/23/17 05:50 08/23/17 05:50 - Constitutional Appears: Non-toxic, Chronically Ill - Head Exam Head Exam: NORMOCEPHALIC - Eye Exam Eye Exam: PERRL - ENT Exam ENT Exam: Mucous Membranes Dry - Neck Exam Neck Exam: absent: Lymphadenopathy - Respiratory Exam Respiratory Exam: Decreased Breath Sounds, Rhonchi - Cardiovascular Exam Cardiovascular Exam: REGULAR RHYTHM - GI/Abdominal Exam GI & Abdominal Exam: Distended - Rectal Exam Rectal Exam: Deferred - Exam Exam: NORMAL INSPECTION Assessment and Plan (1) Pneumonia Status: Acute (2) Sepsis Status: Acute - Assessment and Plan (Free Text) Assessment: RENEWED IV LEVAQUIN D/C JESUSITA
[2017-08-24] MEDS: levoFLOXacin 750 mg in D5W 750 MG/150 ML BAG IVPB SCH (17:10)
[2017-08-25] MEDS: Albuterol-Ipratrop 3 mg / 0.5 (3 ml) UD INH SCH ×4 (02:16→19:24)
[2017-08-25] MEDS: Pantoprazole 40 mg EC Tab PO SCH (08:52)
[2017-08-25] MEDS: Enoxaparin 40 mg Syringe SC SCH (08:52)
[2017-08-25] MEDS: Calcium-Vit D 500 mg-200 Units Tab UD PO SCH (08:52)
[2017-08-25] MEDS: Promethazine 12.5 mg/10 ml Syrup PO SCH ×3 (08:53→16:13)
[2017-08-25] MEDS: Multivitamin With Minerals Tab PO SCH (08:53)
--- NOTE | 2017-08-25 11:32 | CP.PCM.PN ---
Subjective - Date & Time of Evaluation Date of Evaluation: 08/25/17 Time of Evaluation: 11:30 - Subjective Subjective: Ms. Valdes was seen and examined at the therapy room. She is alert, oriented in all spheres. She denies any headache, blurred vision, diplopia, lightheadedness, but claims of poor appetite. She claims that she could tolerate ensure. She has an abdominal colostomy. She is able to follow simple commands. There was no untoward events overnight. Objective - Vital Signs/Intake and Output Vital Signs (last 24 hours): Temp Pulse Resp BP Pulse Ox 97.7 F 96 H 18 112/60 97 08/25/17 08:23 08/25/17 08:23 08/25/17 08:23 08/25/17 08:23 08/25/17 08:23 - Medications Medications: Current Medications Acetaminophen (Tylenol 325mg Tab) 650 mg PO Q6 PRN PRN Reason: Pain, Mild (1-3) Albuterol/Ipratropium (Duoneb 3 Mg/0.5 Mg (3 Ml) Ud) 3 ml INH RQ6 [facility] Last Admin: 08/25/17 07:33 Dose: 3 ml Benzocaine/Menthol (Cepacol Sore Throat) 1 keena PO Q4 PRN PRN Reason: Sore Throat Calcium/Vitamin D (Oyster Shell Calcium/Vitamin D 500 Mg-200 Iu) 1 tab PO DAILY [facility] Last Admin: 08/25/17 08:52 Dose: 1 tab Enoxaparin Sodium (Lovenox) 40 mg SC DAILY [facility] PRN Reason: Protocol Last Admin: 08/25/17 08:52 Dose: 40 mg Levofloxacin/Dextrose (Levaquin 750mg) 750 mg in 150 mls @ 100 mls/hr IVPB DAILY@1700 [facility] Last Admin: 08/24/17 17:10 Dose: 100 mls/hr Multivitamins/Minerals (Therapeutic-M Tab) 1 tab PO DAILY [facility] Last Admin: 08/25/17 08:53 Dose: 1 tab Ondansetron HCl (Zofran Inj) 4 mg IVP Q4 PRN PRN Reason: Nausea/Vomiting Last Admin: 08/24/17 12:11 Dose: 4 mg Pantoprazole Sodium (Protonix Ec Tab) 40 mg PO DAILY [facility] Last Admin: 08/25/17 08:52 Dose: 40 mg Promethazine HCl (Phenergan Syrup) 12.5 mg PO TID [facility] Last Admin: 08/25/17 08:53 Dose: Not Given - Labs Labs: 08/23/17 05:50 08/23/17 05:50 - Constitutional Appears: No Acute Distress, Cachectic - Head Exam Head Exam: NORMAL INSPECTION - Neurological Exam Neurological Exam: Alert, Awake, Oriented x3 Neuro motor strength exam: Left Upper Extremity: 4, Right Upper Extremity: 4, Left Lower Extremity: 4, Right Lower Extremity: 4 Additional comments: She is able to answer questions approrpiately and follow simple commands. Sensation remains intact. Assessment and Plan (1) Altered mental status Assessment & Plan: Case discussed with Dr. Liz, continue all current medical, physical, and occupational therapies. Recommend to treat any underlying infection and electrolyte abnormalities. Status: Acute
--- NOTE | 2017-08-25 13:46 | PN ---
DATE: 08/25/2017 SUBJECTIVE: The patient is seen and examined. Interim events noted. The patient remains in regular Transitional Care Unit. The patient feels that they wants to go home. No chest pain. No shortness of breath. No coughing. Doing well with physical therapy. PHYSICAL EXAMINATION: GENERAL: The patient is in no acute distress. VITAL SIGNS: Stable. HEART: S1 and S2, normal and regular. LUNGS: Improved bilateral air exchange. No rales, no rhonchi, and no wheezing. ABDOMEN: Soft and nontender. No organomegaly. No fluid. Bowel sounds are present and normal. Colostomy in good positional and function. EXTREMITIES: No edema. No calf swelling. No tenderness. No acute ischemia. CENTRAL NERVOUS SYSTEM: Exam is essentially unchanged. DIAGNOSTIC DATA: Available diagnostic data reviewed. ASSESSMENT AND PLAN: Overall, the patient is slowly improving. Plan as ordered. Carlos Tejeda MD
[2017-08-25] MEDS: levoFLOXacin 750 mg in D5W 750 MG/150 ML BAG IVPB SCH (16:12)
[2017-08-26] MEDS: Albuterol-Ipratrop 3 mg / 0.5 (3 ml) UD INH SCH ×4 (01:00→20:07)
[2017-08-26] MEDS: Multivitamin With Minerals Tab PO SCH (08:41)
[2017-08-26] MEDS: Enoxaparin 40 mg Syringe SC SCH (08:41)
[2017-08-26] MEDS: Calcium-Vit D 500 mg-200 Units Tab UD PO SCH (08:41)
[2017-08-26] MEDS: Pantoprazole 40 mg EC Tab PO SCH (08:41)
[2017-08-26] MEDS: Promethazine 12.5 mg/10 ml Syrup PO SCH ×3 (08:41→17:01)
--- NOTE | 2017-08-26 11:48 | CP.PCM.PN ---
Subjective - Date & Time of Evaluation Date of Evaluation: 08/26/17 Time of Evaluation: 11:46 - Subjective Subjective: Ms. Valdes was seen and examined at the bedside. She is alert, oriented in all spheres. She denies any headache, dizziness, lightheadedness, and claims of able to tolerate the majority of her breakfast tray. She further states that her therapy is helping her with her improving strength. She is able to follow simple commands. There was no untoward events overnight. Objective - Vital Signs/Intake and Output Vital Signs (last 24 hours): Temp Pulse Resp BP Pulse Ox 97.7 F 97 H 20 117/53 L 95 08/26/17 09:33 08/26/17 09:33 08/26/17 09:33 08/26/17 09:33 08/26/17 09:33 - Medications Medications: Current Medications Acetaminophen (Tylenol 325mg Tab) 650 mg PO Q6 PRN PRN Reason: Pain, Mild (1-3) Albuterol/Ipratropium (Duoneb 3 Mg/0.5 Mg (3 Ml) Ud) 3 ml INH RQ6 [facility] Last Admin: 08/26/17 08:44 Dose: 3 ml Benzocaine/Menthol (Cepacol Sore Throat) 1 keena PO Q4 PRN PRN Reason: Sore Throat Calcium/Vitamin D (Oyster Shell Calcium/Vitamin D 500 Mg-200 Iu) 1 tab PO DAILY [facility] Last Admin: 08/26/17 08:41 Dose: 1 tab Enoxaparin Sodium (Lovenox) 40 mg SC DAILY [facility] PRN Reason: Protocol Last Admin: 08/26/17 08:41 Dose: 40 mg Levofloxacin/Dextrose (Levaquin 750mg) 750 mg in 150 mls @ 100 mls/hr IVPB DAILY@1700 [facility] Last Admin: 08/25/17 16:12 Dose: 100 mls/hr Multivitamins/Minerals (Therapeutic-M Tab) 1 tab PO DAILY [facility] Last Admin: 08/26/17 08:41 Dose: 1 tab Ondansetron HCl (Zofran Inj) 4 mg IVP Q4 PRN PRN Reason: Nausea/Vomiting Last Admin: 08/25/17 17:45 Dose: 4 mg Pantoprazole Sodium (Protonix Ec Tab) 40 mg PO DAILY [facility] Last Admin: 08/26/17 08:41 Dose: 40 mg Promethazine HCl (Phenergan Syrup) 12.5 mg PO TID [facility] Last Admin: 08/26/17 08:41 Dose: Not Given - Labs Labs: 08/23/17 05:50 08/23/17 05:50 - Constitutional Appears: No Acute Distress, Cachectic - Head Exam Head Exam: NORMAL INSPECTION - Neurological Exam Neurological Exam: Alert, Awake, Oriented x3 Neuro motor strength exam: Left Upper Extremity: 4, Right Upper Extremity: 4, Left Lower Extremity: 4, Right Lower Extremity: 4 Additional comments: Neurological unchanged from previous examination. Assessment and Plan (1) Altered mental status Assessment & Plan: Case discussed with Dr. Liz, continue all current medical, physical, and occupational therapies. Recommend increasing PO intake to help her with her hydration and mental status. Status: Acute
[2017-08-26] MEDS: levoFLOXacin 750 mg in D5W 750 MG/150 ML BAG IVPB SCH (17:02)
[2017-08-27] MEDS: Albuterol-Ipratrop 3 mg / 0.5 (3 ml) UD INH SCH ×4 (00:59→19:28)
[2017-08-27] MEDS: Multivitamin With Minerals Tab PO SCH (08:16)
[2017-08-27] MEDS: Calcium-Vit D 500 mg-200 Units Tab UD PO SCH (08:16)
[2017-08-27] MEDS: Pantoprazole 40 mg EC Tab PO SCH (08:16)
[2017-08-27] MEDS: Promethazine 12.5 mg/10 ml Syrup PO SCH (08:16)
[2017-08-27] MEDS: Enoxaparin 40 mg Syringe SC SCH (08:16)
[2017-08-27] MEDS ORDERED: Promethazine 12.5 mg/10 ml Syrup PO PRN (10:46)
[2017-08-27] MEDS: levoFLOXacin 750 mg in D5W 750 MG/150 ML BAG IVPB SCH (17:11)
[2017-08-28] MEDS: Albuterol-Ipratrop 3 mg / 0.5 (3 ml) UD INH SCH ×4 (01:05→20:09)
[2017-08-28] MEDS: Calcium-Vit D 500 mg-200 Units Tab UD PO SCH (08:13)
[2017-08-28] MEDS: Pantoprazole 40 mg EC Tab PO SCH (08:13)
[2017-08-28] MEDS: Multivitamin With Minerals Tab PO SCH (08:13)
[2017-08-28] MEDS: Enoxaparin 40 mg Syringe SC SCH (08:13)
--- NOTE | 2017-08-28 10:32 | PN ---
DATE: 08/28/2017 SUBJECTIVE: The patient is seen and examined. Interim events noted. The patient remains in Transitional Care Unit. The patient feels okay. Denies any specific complaints. No specific issue reported by nursing staff. PHYSICAL EXAMINATION: GENERAL: The patient is in no acute distress. VITAL SIGNS: Stable. HEART: S1 and S2, normal and regular. LUNGS: Good bilateral air exchange. ABDOMEN: Soft and nontender. EXTREMITIES: No edema. No calf swelling. No tenderness. No acute ischemia. CENTRAL NERVOUS SYSTEM: Essentially unchanged. DIAGNOSTIC DATA: Available diagnostic data reviewed. PLAN: Overall, the patient is slowly improving. Plan as ordered. Carlos Tejeda MD
[2017-08-28 15:34] VITALS: RESP 20
[2017-08-28] MEDS: levoFLOXacin 750 mg in D5W 750 MG/150 ML BAG IVPB SCH (20:49)
[2017-08-29] MEDS: Albuterol-Ipratrop 3 mg / 0.5 (3 ml) UD INH SCH ×4 (01:02→19:46)
[2017-08-29] MEDS: Pantoprazole 40 mg EC Tab PO SCH (08:28)
[2017-08-29] MEDS: Multivitamin With Minerals Tab PO SCH (08:28)
[2017-08-29] MEDS: Calcium-Vit D 500 mg-200 Units Tab UD PO SCH (08:28)
--- NOTE | 2017-08-29 09:15 | PN ---
DATE: 08/27/2017 SUBJECTIVE: The patient is seen and examined. Interim events noted. Consults noted and appreciated. Neurology interventions noted and appreciated. The patient remains in Transitional Care Unit. The patient feels okay. Denies any specific complaint of chest pain or shortness of breath. PHYSICAL EXAMINATION: GENERAL: The patient is in no acute distress. VITAL SIGNS: Stable. HEART: S1 and S2, normal and regular. LUNGS: Good bilateral air exchange. ABDOMEN: Soft and nontender. EXTREMITIES: No edema, no calf swelling. No tenderness. No acute ischemia. 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 DIAGNOSTIC DATA: Available diagnostic data reviewed. PLAN: Overall, the patient's general medical condition is stable and slowly improving. Plan as ordered. Carlos Tejeda MD
--- NOTE | 2017-08-29 09:40 | PN ---
DATE: 08/26/2017 SUBJECTIVE: The patient is seen and examined. Interim events noted. Consults noted and appreciated. Infectious Disease followup and interventions noted and appreciated. The patient remains in Transitional Care Unit. Feels okay. Denies any chest pain, shortness of breath or coughing. Appetite has been improved . PHYSICAL EXAMINATION: GENERAL: The patient is in no acute distress. VITAL SIGNS: Stable. HEART: S1 and S2, normal and regular. LUNGS: Improved bilateral air exchange. ABDOMEN: Soft and nontender. EXTREMITIES: No calf swelling. No tenderness. No acute ischemia. 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 Colostomy . DIAGNOSTIC DATA: Available diagnostic data reviewed. PLAN: Overall, the patient's general medical condition is stable. Plan as ordered. Carlos Tejeda MD
[2017-08-29] MEDS ORDERED: Lidocaine 1% Inj (20ml) ONE (11:35)
--- NOTE | 2017-08-29 11:39 | PN ---
DATE: 08/29/2017 SUBJECTIVE: The patient seen and examined. Interim events noted. The patient remains in Transitional Care Unit. Had one episode of vomiting but feels okay. No chest pain, no shortness of breath. PHYSICAL EXAMINATION: GENERAL: The patient is in no acute distress. VITAL SIGNS: Stable. HEART: S1, S2, normal, regular. LUNGS: Good bilateral air exchange. ABDOMEN: Soft, nontender. No organomegaly. No fluid. Bowel sounds are present and normal. No sign of acute abdomen. No guarding, no rigidity, no rebound. EXTREMITIES: No edema, no calf swelling. No tenderness. No acute ischemia. CENTRAL NERVOUS SYSTEM: Exam is essentially unchanged. DIAGNOSTIC DATA: Available diagnostic data reviewed. ASSESSMENT AND PLAN: Overall, the patient's general medical condition is stable. Plan as ordered. Carlos Tejeda MD
[2017-08-29] MEDS: levoFLOXacin 750 mg in D5W 750 MG/150 ML BAG IVPB SCH (21:16)
[2017-08-30] MEDS: Albuterol-Ipratrop 3 mg / 0.5 (3 ml) UD INH SCH ×3 (00:59→13:22)
[2017-08-30] MEDS: Calcium-Vit D 500 mg-200 Units Tab UD PO SCH (08:20)
[2017-08-30] MEDS: Pantoprazole 40 mg EC Tab PO SCH (08:20)
[2017-08-30] MEDS: Multivitamin With Minerals Tab PO SCH (08:20)
--- NOTE | 2017-08-30 09:05 | PN ---
DATE: 08/30/2017 SUBJECTIVE: The patient seen and examined. Interim events noted. Consults noted and appreciated. The patient feels much better. Completed IV antibiotic. No chest pain. No shortness of breath. No coughing. PHYSICAL EXAMINATION: GENERAL: The patient is in no acute distress. VITAL SIGNS: Stable. HEART: S1 and S2, normal and regular. LUNGS: Good bilateral air exchange. ABDOMEN: Soft and nontender. EXTREMITIES: No edema. No calf swelling. No tenderness. No acute ischemia. CENTRAL NERVOUS SYSTEM: Exam is essentially unchanged. DIAGNOSTIC DATA: Available diagnostic data reviewed. ASSESSMENT AND PLAN: Overall, the patient is clinically stable. We will discharge the patient home today. The patient will be followed up by her primary care physician , order planner . Case and plan discussed with patient. Carlos Tejeda MD
[2017-08-30 16:03] VITALS: BP 121/53; PULSE 100; TEMP 98.1; O2SAT 95
--- NOTE | 2017-08-31 08:37 | DS ---
HISTORY OF PRESENT ILLNESS: This is an 82-year-old female who was admitted to medical floor with pneumonia and was transferred to Transitional Care Unit for completion of treatment and recuperation on rehab. The patient was admitted. IV antibiotics were continued and therapy yesterday. Remained medically stable and is being discharged home today. The patient will be followed by . The patient also had number available from my office in case of any questions on emergency. Carlos Tejeda MD
== END 2017-08-30 16:30 | disposition home health service (06) | DRG 871 ==
LOC: H.TCU 15:38
PROVIDERS: ADMIT Internal Medicine; ATTEND Internal Medicine
PROC: 3E03329 Introduction of Other Anti-infective into Peripheral Vein, Percutaneous Approach (ICD-10-PCS; principal; 2017-08-20)
PROC: 3E0F7GC Introduction of Other Therapeutic Substance into Respiratory Tract, Via Natural or Artificial Opening (ICD-10-PCS; 2017-08-21)
DX: A41.9 Sepsis, unspecified organism (principal); J18.9 Pneumonia, unspecified organism; K51.90 Ulcerative colitis, unspecified, without complications; M06.9 Rheumatoid arthritis, unspecified; E44.1 Mild protein-calorie malnutrition; K52.9 Noninfective gastroenteritis and colitis, unspecified; Z87.01 Personal history of pneumonia (recurrent); Z87.891 Personal history of nicotine dependence; Z93.3 Colostomy status; Z96.642 Presence of left artificial hip joint; M19.90 Unspecified osteoarthritis, unspecified site; R41.82 Altered mental status, unspecified; I10 Essential (primary) hypertension

== ENCOUNTER 2017-11-28 08:12 | Observation (INO) | payer MEDICARE ==
[2017-11-28 08:15] VITALS: BMI 14.6
[2017-11-28] MEDS ORDERED: Moxifloxacin IV 400mg/250ml NS 250 ML IVPB STA (08:34)
--- NOTE | 2017-11-28 08:38 | ED PDOC ---
HPI: CCC, URI, Sore Throat Time Seen by Provider: 11/28/17 08:26 Chief Complaint (Nursing): Dizziness/Lightheaded Chief Complaint (Provider): Cough History Per: Patient History/Exam Limitations: no limitations Onset/Duration Of Symptoms: Hrs (x 4) Current Symptoms Are (Timing): Still Present Additional Complaint(s): 82 year old female with a history of pneumonia presents to the ED with a cough productive of white sputum for the last 2 days. Her daughter took her temperature today at 5 am and it was 101 degrees. Patient took Motrin shortly after. Denies chest pain and shortness of breath. Also c/o nausea and dry heaving episodes since her colostomy was placed 3 years ago. PMD: none provided Past Medical History Reviewed: Historical Data, Nursing Documentation, Vital Signs Vital Signs: Last Vital Signs Temp 98.2 F 11/28/17 11:05 Pulse 98 H 11/28/17 11:05 Resp 16 11/28/17 11:05 BP 132/73 11/28/17 08:15 Pulse Ox 98 11/28/17 13:23 - Medical History PMH: Arthritis, Pneumonia, Rheumatoid Arthritis Denies: HIV, Chronic Kidney Disease - Surgical History Surgical History: No Surg Hx - Family History Family History: States: Unknown Family Hx - Home Medications Home Medications: Ambulatory Orders Medication Instructions Recorded Calcium Carbonate/Vitamin D3 1 tab PO DAILY 11/28/17 [Caltrate 600 Plus D3 Tablet] Multivitamin [Multi-Vitamin Daily] 1 tab PO DAILY 11/28/17 - Allergies Allergies/Adverse Reactions: Allergies Allergy/AdvReac Type Severity Reaction Status Date / Time celecoxib [From Celebrex] Allergy RASH Verified 11/28/17 08:23 infliximab [From Remicade] Allergy RASH Verified 11/28/17 08:23 mesalamine Allergy RASH Verified 11/28/17 08:23 Penicillins Allergy RASH Verified 11/28/17 08:23 Sulfa (Sulfonamide Allergy RASH Verified 11/28/17 08:23 Antibiotics) Review of Systems ROS Statement: Except As Marked, All Systems Reviewed And Found Negative Constitutional: Positive for: Fever Cardiovascular: Negative for: Chest Pain Respiratory: Positive for: Cough (producing white sputum). Negative for: Shortness of Breath Physical Exam - Reviewed Nursing Documentation Reviewed: Yes Vital Signs Reviewed: Yes - Physical Exam Appears: Positive for: Non-toxic, No Acute Distress (speaking full sentences; cachectic ) Head Exam: Positive for: ATRAUMATIC, NORMAL INSPECTION, NORMOCEPHALIC Skin: Positive for: Normal Color, Warm, Dry Eye Exam: Positive for: EOMI, Normal appearance, PERRL Neck: Positive for: Normal, Painless ROM, Supple Cardiovascular/Chest: Positive for: Regular Rate, Rhythm Respiratory: Positive for: CNT, Normal Breath Sounds Gastrointestinal/Abdominal: Positive for: Normal Exam, Soft, Other (colostomy present) Extremity: Positive for: Normal ROM. Negative for: Deformity Neurologic/Psych: Positive for: Alert, Oriented - Laboratory Results Result Diagrams: 11/28/17 08:48 11/28/17 08:48 - ECG O2 Sat by Pulse Oximetry: 98 (RA) Pulse Ox Interpretation: Normal Medical Decision Making Medical Decision Making: Time: 08:34 Impression: Bronchitis, pneumonia Initial Plan: --VBG --EKG --CMP --CBC with differentials --PTT --Prothrombin time --Chest x-ray --Avelox IV 400 mg/250 ml NS --Blood cx Time: 09:14 --Levaquin 750 mg IVPB Time: 12;44 --Reglan 10 mg IVP --Zofran ODT 4 mg PO Time: 14:53 --Patient will be admitted to the service of Dr. Jamison. Admitting diagnosis is intractable vomiting. Scribe Attestation: Documented by Narda Chamorro, acting as a scribe for Spring Young MD Provider Scribe Attestation: All medical record entries made by the Scribe were at my direction and personally dictated by me. I have reviewed the chart and agree that the record accurately reflects my personal performance of the history, physical exam, medical decision making, and the department course for this patient. I have also personally directed, reviewed, and agree with the discharge instructions and disposition. Disposition - Patient ED Disposition Is Patient to be Admitted: Yes - Disposition Disposition Time: 14:53 - Pt Status Changed To: Hospital Disposition Of: Observation
[2017-11-28 08:59] LABS: VENOUS BLOOD GAS BASE EXCESS 5.3 mmol/L (0.0-2.0); VENOUS BLOOD GAS PCO2 54 mmHg (40-60); VENOUS BLOOD GAS PO2 21 mm/Hg (30-55); VENOUS BLOOD PH 7.38 (7.32-7.43)
[2017-11-28 09:01] LABS: BASO % 0.4 % (0.0-2.0); HEMOGLOBIN 13.3 g/dL (12.0-16.0); LYMPH # 0.3 K/uL (1.0-4.3); LYMPH % 7.1 % (20.0-40.0); MEAN CELL VOLUME 96.9 fl (81.0-99.0); MEAN CORPUSCULAR HEMOGLOBIN 33.1 pg (27.0-31.0); MEAN CORPUSCULAR HGB CONC 34.2 g/dL (33.0-37.0); MEAN PLATELET VOLUME 7.6 fl (7.2-11.7); MONO # 0.4 K/uL (0.0-0.8); MONO % 7.7 % (0.0-10.0); NEUT # 4.2 K/uL (1.8-7.0); NEUT % 84.8 % (50.0-75.0); NRBC % 0.1 % (0.0-0.0); PLATELET COUNT 191 K/uL (130-400); RBC 4.02 Mil/uL (3.80-5.20); RED CELL DISTRIBUTION WIDTH 12.4 % (11.5-14.5); WHITE BLOOD COUNT 4.9 K/uL (4.8-10.8)
[2017-11-28 09:07] LABS: ALB/GLOB RATIO 0.9 (1.0-2.1); ALBUMIN 3.8 g/dL (3.5-5.0); ALT/SGPT 31 U/L (9-52); AST/SGOT 40 U/L (14-36); BLOOD UREA NITROGEN 19 mg/dl (7-17); CALCIUM 9.1 mg/dL (8.4-10.2); GFR AFRICAN-AMERICAN > 60; GFR NON-AFRICAN AMERICAN 60
[2017-11-28] MEDS ORDERED: levoFLOXacin 750 mg in D5W 150 ML BAG IVPB STA ×2 (09:14→09:22)
[2017-11-28] MEDS ORDERED: levoFLOXacin 750 mg in D5W 750 MG/150 ML BAG IVPB ONE (09:17)
[2017-11-28 09:27] LABS: PROTHROMBIN TIME 11.4 Seconds (9.8-13.1)
[2017-11-28 10:21] LABS: LYMPHOCYTE 8 % (20-50); MONOCYTE 8 % (0-10); NEUTROPHIL 84 % (42-75); PLATELET ESTIMATE NORMAL (NORMAL); TOTAL CELLS COUNTED 100
[2017-11-28] MEDS ORDERED: Potassium Chloride 20 mEq ER Tab PO STA (10:23)
[2017-11-28] MEDS ORDERED: Sodium Chloride 0.9% 1,000 ML IV STA (10:26)
--- NOTE | 2017-11-28 10:49 | RAD ---
PROCEDURE: CHEST RADIOGRAPH, 1 VIEW HISTORY: Cough, fever COMPARISON: 08/23/2017. FINDINGS: LUNGS: Clear. PLEURA: Bilateral pleural effusions identified previously have resolved. CARDIOVASCULAR: Normal. OSSEOUS STRUCTURES: No significant abnormalities. VISUALIZED UPPER ABDOMEN: Normal. OTHER FINDINGS: None. IMPRESSION: No active disease.
[2017-11-28] MEDS ORDERED: Potassium Chloride 20 mEq ER Tab PO ONE ×2 (11:00→11:24)
--- NOTE | 2017-11-28 15:24 | CARD ---
APPROVED REPORT EKG Measurement Heart [id number] <Conclusion> Normal sinus rhythm Right atrial enlargement Cannot rule out Anterior infarct, age undetermined Abnormal ECG
[2017-11-28] MEDS ORDERED: Sodium Chloride 0.9% 1,000 ML IV SCH (18:30)
[2017-11-29 08:28] LABS: HEMOGLOBIN 12.1 g/dL (12.0-16.0); MEAN CELL VOLUME 98.5 fl (81.0-99.0); MEAN CORPUSCULAR HEMOGLOBIN 32.7 pg (27.0-31.0); MEAN CORPUSCULAR HGB CONC 33.2 g/dL (33.0-37.0); RBC 3.71 Mil/uL (3.80-5.20); RED CELL DISTRIBUTION WIDTH 12.5 % (11.5-14.5); WHITE BLOOD COUNT 4.9 K/uL (4.8-10.8)
[2017-11-29 09:05] LABS: LDL CHOLESTEROL 63 mg/dL (0-129)
[2017-11-29 09:10] LABS: T4 6.66 ug/dl (5.5-11.0)
[2017-11-29 09:25] LABS: ALB/GLOB RATIO 0.8 (1.0-2.1); ALBUMIN 3.2 g/dL (3.5-5.0); ALT/SGPT 17 U/L (9-52); AMYLASE 145 U/L (30-110); AST/SGOT 53 U/L (14-36); BLOOD UREA NITROGEN 15 mg/dl (7-17); CALCIUM 8.2 mg/dL (8.4-10.2); GFR AFRICAN-AMERICAN > 60; GFR NON-AFRICAN AMERICAN > 60; HDL CHOLESTEROL 39 MG/DL (30-70); LIPASE 247 U/L (23-300)
[2017-11-29 09:59] LABS: SQUAMOUS EPITHIAL < 1 /hpf (0-5); URINE BACTERIA RARE (<OCC); URINE BILIRUBIN NEGATIVE (NEGATIVE); URINE BLOOD NEGATIVE (NEGATIVE); URINE CLARITY SLIGHTY-CLOUDY (Clear); URINE COLOR YELLOW (YELLOW); URINE GLUCOSE (UA) NEG (Normal); URINE HYALINE CAST 0-2 /hpf (0-2); URINE LEUKOCYTE ESTERASE SMALL Leu/uL (Negative); URINE PROTEIN 30 mg/dL (NEGATIVE); URINE UROBILINOGEN 0.2-1.0 mg/dL (0.2-1.0)
--- NOTE | 2017-11-29 13:49 | CP.PCM.HP ---
History of Present Illness - History of Present Illness History of Present Illness: CC: Nausea. 82 y/o F, Cachetic (BMI 14.6) Hx Colostomy, R[facility] to be evaluated for persistent nausea associated to dizziness and cough with no relief. Also c/o of frequents dry heaves since Colostomy 3 yrs ago. Worsening symptom: High temperature while at home of 101.0 F in AM on DOA that subsided with Motrin. Non aggravated factor. Pt denied: Vomiting, diarrhea, abdominal pain, bloody cough, CP, palpitations, SOB, ROSEN, chest congestion, urinary symptoms, sick contact, recent travel out of [facility]. CXR: No active disease. EKG: Normal sinus rhythm. R Atrial enlargement, cannot rule out anterior infarct, age undetermined. Present on Admission - Present on Admission Any Indicators Present on Admission: No Review of Systems - Constitutional Constitutional: Fever, Other (Cachetic) - EENT Eyes: Other (negative) Ears: Other (negative) Nose/Mouth/Throat: Other (negative) - Cardiovascular Cardiovascular: Other (negative) - Respiratory Respiratory: Cough - Gastrointestinal Gastrointestinal: Nausea - Genitourinary Genitourinary: Other (negative) - Musculoskeletal Musculoskeletal: Arthralgias - Integumentary Integumentary: As Per HPI - Neurological Neurological: Dizziness - Psychiatric Psychiatric: Other (negative) - Endocrine Endocrine: Other (negative) - Hematologic/Lymphatic Hematologic: Other (negative) Past Patient History - Past Medical History & Family History Past Medical History?: Yes Pertinent Family History: Unknown - Past Social History Smoking Status: Never Smoked Alcohol: None Drugs: Denies Home Situation {Lives}: With Family - CARDIAC Hx Cardiac Disorders: No - PULMONARY Hx Respiratory Disorders: Yes Hx Pneumonia: Yes - NEUROLOGICAL Hx Neurological Disorder: No - HEENT Hx HEENT Problems: No - RENAL Hx Chronic Kidney Disease: No - ENDOCRINE/METABOLIC Hx Endocrine Disorders: No - HEMATOLOGICAL/ONCOLOGICAL Hx Human Immunodeficiency Virus (HIV): No - INTEGUMENTARY Hx Dermatological Problems: No - MUSCULOSKELETAL/RHEUMATOLOGICAL Hx Musculoskeletal Disorders: Yes (arthritis) Hx Falls: Yes (left hip replacement) - GASTROINTESTINAL Hx Gastrointestinal Disorders: Yes Hx Colitis: Yes Hx Colostomy: Yes - GENITOURINARY/GYNECOLOGICAL Hx Genitourinary Disorders: No - PSYCHIATRIC Hx Psychophysiologic Disorder: Yes (anxiety) - SURGICAL HISTORY Hx Surgeries: Yes Hx Orthopedic Surgery: Yes (BILATERAL KNEES, LT HIP REPLACEMENT) Other/Comment: right hip sx with pin - ANESTHESIA Hx Anesthesia: Yes Hx Anesthesia Reactions: No Hx Malignant Hyperthermia: No Meds Home Medications: Home Medication List Medication Instructions Recorded Confirmed Type Ondansetron ODT [Zofran ODT] 4 mg PO Q6 PRN #20 odt 11/29/17 Rx Allergies/Adverse Reactions: Allergies Allergy/AdvReac Type Severity Reaction Status Date / Time celecoxib [From Celebrex] Allergy RASH Verified 11/28/17 08:23 infliximab [From Remicade] Allergy RASH Verified 11/28/17 08:23 mesalamine Allergy RASH Verified 11/28/17 08:23 Penicillins Allergy RASH Verified 11/28/17 08:23 Sulfa (Sulfonamide Allergy RASH Verified 11/28/17 08:23 Antibiotics) Physical Exam - Constitutional Appears: No Acute Distress - Head Exam Head Exam: NORMAL INSPECTION - Eye Exam Eye Exam: PERRL - ENT Exam ENT Exam: Normal Exam - Neck Exam Neck exam: Positive for: Normal Inspection - Respiratory Exam Respiratory Exam: NORMAL BREATHING PATTERN - Cardiovascular Exam Cardiovascular Exam: REGULAR RHYTHM - GI/Abdominal Exam GI & Abdominal Exam: Normal Bowel Sounds, Soft Additional comments: Colostomy - Extremities Exam Additional comments: R-L TKR, R THR - Back Exam Additional comments: Sacral redness - Neurological Exam Neurological exam: Alert, Oriented x3 - Psychiatric Exam Psychiatric exam: Normal Affect - Skin Skin Exam: Warm Results - Vital Signs Recent Vital Signs: Last Vital Signs Temp 98.8 F 11/29/17 07:43 Pulse 98 H 11/29/17 07:43 Resp 18 11/29/17 07:43 BP 118/62 11/29/17 07:43 Pulse Ox 93 L 11/29/17 07:43 reviewed David - Labs Result Diagrams: 11/29/17 04:00 11/29/17 08:00 Labs: Laboratory Results - last 24 hr 11/28/17 11/29/17 11/29/17 08:20 04:00 08:00 WBC 4.9 RBC 3.71 L Hgb 12.1 Hct 36.6 MCV 98.5 MCH 32.7 H MCHC 33.2 RDW 12.5 Plt Count 141 Sodium 140 Potassium 4.4 Chloride 107 Carbon Dioxide 15 L Anion Gap 22 H BUN 15 Creatinine 0.7 Est GFR ( Amer) > 60 Est GFR (Non-Af Amer) > 60 POC Glucose (mg/dL) 95 Random Glucose 86 Calcium 8.2 L Total Bilirubin 0.6 AST 53 H D ALT 17 Alkaline Phosphatase 44 Total Protein 7.2 Albumin 3.2 L Globulin 4.0 H Albumin/Globulin Ratio 0.8 L Triglycerides 79 Cholesterol 142 LDL Cholesterol Direct 63 HDL Cholesterol 39 Amylase 145 H Lipase 247 Thyroxine (T4) 6.66 TSH 3rd Generation 0.82 Urine Color Urine Clarity Urine pH Ur Specific [place] Urine Protein Urine Glucose (UA) Urine Ketones Urine Blood Urine Nitrate Urine Bilirubin Urine Urobilinogen Ur Leukocyte Esterase Urine RBC (Auto) Urine Microscopic WBC Ur Squamous Epith Cells Urine Bacteria Hyaline Casts 11/29/17 09:20 WBC RBC Hgb Hct MCV MCH MCHC RDW Plt Count Sodium Potassium Chloride Carbon Dioxide Anion Gap BUN Creatinine Est GFR ( Amer) Est GFR (Non-Af Amer) POC Glucose (mg/dL) Random Glucose Calcium Total Bilirubin AST ALT Alkaline Phosphatase Total Protein Albumin Globulin Albumin/Globulin Ratio Triglycerides Cholesterol LDL Cholesterol Direct HDL Cholesterol Amylase Lipase Thyroxine (T4) TSH 3rd Generation Urine Color Yellow Urine Clarity Slighty-cloudy Urine pH 5.0 Ur Specific [place] 1.015 Urine Protein 30 Urine Glucose (UA) Neg Urine Ketones Trace Urine Blood Negative Urine Nitrate Negative Urine Bilirubin Negative Urine Urobilinogen 0.2-1.0 Ur Leukocyte Esterase Small Urine RBC (Auto) 4 H Urine Microscopic WBC 11 H Ur Squamous Epith Cells < 1 Urine Bacteria Rare Hyaline Casts 0-2 reviewed J.P. - EKG Data EKG comments: reviewed J.P. - Imaging and Cardiology Chest x-ray Status: Report reviewed by me (TarasP.) Assessment & Plan (1) Nausea Status: Acute Priority: High (2) Colostomy status Status: Chronic Priority: High - Assessment and Plan (Free Text) Plan: Continue Protonix, Zofran, F/U Blood C-S, PT, OT, GI consult. - Date & Time Date: 11/29/17
--- NOTE | 2017-11-29 18:49 | RAD ---
HISTORY: nausea COMPARISON: No prior. FINDINGS: BOWEL: Normal. No obstruction. No free air. BONES: Satisfactory appearing left DANTE is visualize. Two partially fenestrated screws appear to be in satisfactory position proximal right femur. OTHER FINDINGS: None. IMPRESSION: Unremarkable bowel gas pattern without evidence of obstruction or free air.
--- NOTE | 2017-11-30 11:05 | CP.PCM.CON ---
<Hua Morris - Last Filed: 11/30/17 13:20> History of Present Illness - History of Present Illness History of Present Illness: PGY5 GI Fellow Consult Note Patient is an 82yo female with PMHx significant for ulcerative colitis s/p total colectomy (per patient), rheumatoid arthritis, cholelithiasis who presented to the hospital with fever and productive cough. Patient states that she developed productive cough this past weekend and it persisted through the beginning of this week. Her daughter checked her temperature at home and noted fever of 101F and brought mother to ED for further evaluation. Patient was hospitalized previously in August for pneumonia. Currently, she states she is feeling better, though continues to have productive cough. Had episodes of nausea and "dry heaves" prior to arrival but denies this currently. Regarding her ulcerative colitis, patient was diagnosed in 2014 at [facility]. Per the patient, at that time she initially presented with uncontrolled rectal bleeding and was found to have ulcerative rincon-colitis on colonoscopy. She became very ill with uncontrolled GI hemorrhage and possibly infection and required a prolonged hospitalization (~5 months). Ultimately, decision was made to proceed with total colectomy and RLQ ostomy formation. The patient has not had colonoscopy since this event and states that she has never been and is not currently on any maintenance medications. She continues to have intermittent rectal bleeding despite surgery with drops of blood in her ostomy. She empties ostomy 3-4 times daily. Denies any recent weight loss but is currently 85 lbs ( BMI of 14.6) despite eating at least 2 meals daily. Weight is stable since August admission. Patient was set to follow up with a gastroenerologist (Dr Slade at [place]) but has been unable to due to multiple deaths in her family. I could not reach the patient's daughter to clarify details of this hospitalizations. 12 system ROS performed and negative except where stated PMHx: See HPI PSHx: Total colectomy (2015), B/L total knee replacement, Left hip replacement, Right hip pin placement FHx: Bothers with ALS, lung cancer, throat cancer Social: Prior tobacco use >50 years ago; Denies EtOH or illicit drug use Endo: ~3 years ago during hospitalization at [facility] Allergies: Sulfa, Celebrex, Infliximab (unclear if used previously for UC or RA) Past Patient History - Past Medical History & Family History Past Medical History?: Yes - Past Social History Smoking Status: Never Smoked Alcohol: None Drugs: Denies Home Situation {Lives}: With Family - CARDIAC Hx Cardiac Disorders: No - PULMONARY Hx Respiratory Disorders: Yes Hx Pneumonia: Yes - NEUROLOGICAL Hx Neurological Disorder: No - HEENT Hx HEENT Problems: No - RENAL Hx Chronic Kidney Disease: No - ENDOCRINE/METABOLIC Hx Endocrine Disorders: No - HEMATOLOGICAL/ONCOLOGICAL Hx Human Immunodeficiency Virus (HIV): No - INTEGUMENTARY Hx Dermatological Problems: No - MUSCULOSKELETAL/RHEUMATOLOGICAL Hx Musculoskeletal Disorders: Yes (arthritis) Hx Falls: Yes (left hip replacement) - GASTROINTESTINAL Hx Gastrointestinal Disorders: Yes Hx Colitis: Yes Hx Colostomy: Yes - GENITOURINARY/GYNECOLOGICAL Hx Genitourinary Disorders: No - PSYCHIATRIC Hx Psychophysiologic Disorder: Yes (anxiety) - SURGICAL HISTORY Hx Surgeries: Yes Hx Orthopedic Surgery: Yes (BILATERAL KNEES, LT HIP REPLACEMENT) Other/Comment: right hip sx with pin - ANESTHESIA Hx Anesthesia: Yes Hx Anesthesia Reactions: No Hx Malignant Hyperthermia: No Meds Home Medications: Home Medication List Medication Instructions Recorded Confirmed Type Ondansetron ODT [Zofran ODT] 4 mg PO Q6 PRN #20 odt 11/29/17 Rx Allergies/Adverse Reactions: Allergies Allergy/AdvReac Type Severity Reaction Status Date / Time celecoxib [From Celebrex] Allergy RASH Verified 11/28/17 08:23 infliximab [From Remicade] Allergy RASH Verified 11/28/17 08:23 mesalamine Allergy RASH Verified 11/28/17 08:23 Penicillins Allergy RASH Verified 11/28/17 08:23 Sulfa (Sulfonamide Allergy RASH Verified 11/28/17 08:23 Antibiotics) - Medications Medications: Current Medications Ondansetron HCl (Zofran Inj) 4 mg IVP Q4 PRN PRN Reason: Nausea/Vomiting Ondansetron HCl (Zofran Odt) 4 mg PO Q6 PRN PRN Reason: Nausea/Vomiting Last Admin: 11/29/17 13:30 Dose: 4 mg Pantoprazole Sodium (Protonix Inj) 40 mg IVP DAILY EMILY Last Admin: 11/30/17 10:02 Dose: 40 mg Physical Exam - Constitutional Appears: No Acute Distress, Cachectic, Chronically Ill - Eye Exam Eye Exam: EOMI, PERRL - ENT Exam ENT Exam: Mucous Membranes Moist - Respiratory Exam Respiratory Exam: Rales (B/L). absent: Clear to Auscultation Bilateral, Rhonchi , Wheezes - Cardiovascular Exam Cardiovascular Exam: RRR, +S1, +S2 - GI/Abdominal Exam GI & Abdominal Exam: Normal Bowel Sounds, Soft. absent: Distended, Firm, Guarding, Organomegaly, Rigid, Tenderness Additional comments: RLQ ostomy - Extremities Exam Extremities exam: Negative for: pedal edema Additional comments: B/L changes of RA in hands noted - Neurological Exam Neurological exam: Alert, Oriented x3 - Psychiatric Exam Psychiatric exam: Normal Affect, Normal Mood - Skin Skin Exam: Dry, Warm Results - Vital Signs Recent Vital Signs: Last Vital Signs Temp 98.2 F 11/30/17 07:50 Pulse 84 11/30/17 07:50 Resp 18 11/30/17 07:50 BP 122/67 11/30/17 07:50 Pulse Ox 94 L 11/30/17 07:50 - Labs Result Diagrams: 11/29/17 04:00 11/29/17 08:00 Assessment & Plan - Assessment and Plan (Free Text) Assessment: Patient is an 82yo female with PMHx significant for ulcerative colitis s/p total colectomy (per patient), rheumatoid arthritis, cholelithiasis who presented to the hospital with fever and productive cough -Febrile illness, URI suspected -Productive cough -Nausea, resolved -Malnutrition suspected Plan: -Suspect nausea a result of acute illness, has since resolved -Management of productive cough/URI per primary service -The patient would benefit from close, outpatient follow up with her primary hand cooper helper in [facility] (Dr Slade, per patient) who will have access to all records from previous, complicated admission -Try to obtain records regarding surgical procedure performed in 2014 (total colectomy vs subtotal) -Depending on prior surgery (total colectomy vs subtotal), may benefit from nonemergent EGD/colonoscopy given ongoing hematochezia/suspected malnutrition -Recommend bander and cellophaner machine helper evaluation Case discussed with Dr Holden - Date & Time Date: 11/30/17 Time: 10:20 <Deepthi Holden - Last Filed: 12/01/17 15:19> Results - Vital Signs Recent Vital Signs: Last Vital Signs Temp 98.3 F 11/30/17 16:04 Pulse 91 H 11/30/17 16:04 Resp 20 11/30/17 16:04 BP 104/64 11/30/17 16:04 Pulse Ox 92 L 11/30/17 16:04 - Labs Result Diagrams: 11/29/17 04:00 11/29/17 08:00 Attending/Attestation - Attestation I have personally seen and examined this patient.: Yes I have fully participated in the care of the patient.: Yes I have reviewed all pertinent clinical information: Yes Notes (Text): 12/01/17 15:18 82 yr old female with PMHx significant for ulcerative colitis s/p total colectomy (per patient), rheumatoid arthritis, cholelithiasis who presented to the hospital with fever and productive cough. Gi consulted for history of UC. Can follow with her primary hand cooper helper in [facility] (Dr Slade, per patient) who will have access to all records from previous, complicated admission
--- NOTE | 2017-11-30 15:44 | CP.PCM.DIS ---
Provider - Provider Date of Admission: 11/28/17 14:53 Attending physician: Noel Jamison MD Diagnosis - Discharge Diagnosis (1) Nausea Status: Acute Priority: High (2) Colostomy status Status: Chronic Priority: High Hospital Course - Lab Results Lab Results: Micro Results 11/28/17 09:15 Blood Blood Culture - Preliminary NO GROWTH AFTER 48 HOURS 11/28/17 08:48 Blood Blood Culture - Preliminary NO GROWTH AFTER 48 HOURS Most Recent Lab Values WBC 4.9 K/uL (4.8-10.8) 11/29/17 04:00 RBC 3.71 Mil/uL (3.80-5.20) L 11/29/17 04:00 Hgb 12.1 g/dL (12.0-16.0) 11/29/17 04:00 Hct 36.6 % (34.0-47.0) 11/29/17 04:00 MCV 98.5 fl (81.0-99.0) 11/29/17 04:00 MCH 32.7 pg (27.0-31.0) H 11/29/17 04:00 MCHC 33.2 g/dL (33.0-37.0) 11/29/17 04:00 RDW 12.5 % (11.5-14.5) 11/29/17 04:00 Plt Count 141 K/uL (130-400) 11/29/17 04:00 MPV 7.6 fl (7.2-11.7) 11/28/17 08:48 Neut % (Auto) 84.8 % (50.0-75.0) H 11/28/17 08:48 Lymph % (Auto) 7.1 % (20.0-40.0) L 11/28/17 08:48 [place] % (Auto) 7.7 % (0.0-10.0) 11/28/17 08:48 Eos % (Auto) 0.0 % (0.0-4.0) 11/28/17 08:48 Baso % (Auto) 0.4 % (0.0-2.0) 11/28/17 08:48 Neut # (Auto) 4.2 K/uL (1.8-7.0) 11/28/17 08:48 Lymph # (Auto) 0.3 K/uL (1.0-4.3) L 11/28/17 08:48 [place] # (Auto) 0.4 K/uL (0.0-0.8) 11/28/17 08:48 Eos # (Auto) 0.0 K/uL (0.0-0.7) 11/28/17 08:48 Baso # (Auto) 0.0 K/uL (0.0-0.2) 11/28/17 08:48 Neutrophils % (Manual) 84 % (42-75) H 11/28/17 08:48 Lymphocytes % (Manual) 8 % (20-50) L 11/28/17 08:48 Monocytes % (Manual) 8 % (0-10) 11/28/17 08:48 Platelet Estimate Normal (NORMAL) 11/28/17 08:48 RBC Morphology Normal (NORMAL) 11/28/17 08:48 PT 11.4 Seconds (9.8-13.1) 11/28/17 08:48 INR 1.0 (0.9-1.2) 11/28/17 08:48 APTT 37.0 Seconds (25.6-37.1) 11/28/17 08:48 pO2 21 mm/Hg (30-55) L 11/28/17 08:50 VBG pH 7.38 (7.32-7.43) 11/28/17 08:50 VBG pCO2 54 mmHg (40-60) 11/28/17 08:50 VBG HCO3 27.3 mmol/L 11/28/17 08:50 VBG Total CO2 33.6 mmol/L (22-28) H 11/28/17 08:50 VBG O2 Sat (Calc) 34.9 % (40-65) L 11/28/17 08:50 VBG Base Excess 5.3 mmol/L (0.0-2.0) H 11/28/17 08:50 VBG Potassium 4.5 mmol/L (3.6-5.2) 11/28/17 08:50 Sodium 136.0 mmol/L (132-148) 11/28/17 08:50 Chloride 102.0 mmol/L (98-107) 11/28/17 08:50 Glucose 108 mg/dL (65-105) H 11/28/17 08:50 Lactate 1.5 mmol/L (0.7-2.1) 11/28/17 08:50 FiO2 21.0 % 11/28/17 08:50 Sodium 140 mmol/l (132-148) 11/29/17 08:00 Potassium 4.4 MMOL/L (3.6-5.0) 11/29/17 08:00 Chloride 107 mmol/L (98-107) 11/29/17 08:00 Carbon Dioxide 15 mmol/L (22-30) L 11/29/17 08:00 Anion Gap 22 (10-20) H 11/29/17 08:00 BUN 15 mg/dl (7-17) 11/29/17 08:00 Creatinine 0.7 mg/dl (0.7-1.2) 11/29/17 08:00 Est GFR ( Amer) > 60 11/29/17 08:00 Est GFR (Non-Af Amer) > 60 11/29/17 08:00 POC Glucose (mg/dL) 95 mg/dL (65-110) 11/28/17 08:20 Random Glucose 86 mg/dL (65-105) 11/29/17 08:00 Calcium 8.2 mg/dL (8.4-10.2) L 11/29/17 08:00 Total Bilirubin 0.6 mg/dl (0.2-1.3) 11/29/17 08:00 AST 53 U/L (14-36) H D 11/29/17 08:00 ALT 17 U/L (9-52) 11/29/17 08:00 Alkaline Phosphatase 44 U/L (38-126) 11/29/17 08:00 Total Protein 7.2 G/DL (6.3-8.2) 11/29/17 08:00 Albumin 3.2 g/dL (3.5-5.0) L 11/29/17 08:00 Globulin 4.0 gm/dL (2.2-3.9) H 11/29/17 08:00 Albumin/Globulin Ratio 0.8 (1.0-2.1) L 11/29/17 08:00 Triglycerides 79 mg/DL (0-149) 11/29/17 08:00 Cholesterol 142 mg/dL (0-199) 11/29/17 08:00 LDL Cholesterol Direct 63 mg/dL (0-129) 11/29/17 08:00 HDL Cholesterol 39 MG/DL (30-70) 11/29/17 08:00 Amylase 145 U/L (30-110) H 11/29/17 08:00 Lipase 247 U/L (23-300) 11/29/17 08:00 Thyroxine (T4) 6.66 ug/dl (5.5-11.0) 11/29/17 08:00 TSH 3rd Generation 0.82 mIU/ML (0.46-4.68) 11/29/17 08:00 Venous Blood Potassium 4.5 mmol/L (3.6-5.2) 11/28/17 08:50 Urine Color Yellow (YELLOW) 11/29/17 09:20 Urine Clarity Slighty-cloudy (Clear) 11/29/17 09:20 Urine pH 5.0 (5.0-8.0) 11/29/17 09:20 Ur Specific [place] 1.015 (1.003-1.030) 11/29/17 09:20 Urine Protein 30 mg/dL (NEGATIVE) 11/29/17 09:20 Urine Glucose (UA) Neg mg/dL (Normal) 11/29/17 09:20 Urine Ketones Trace mg/dL (NEGATIVE) 11/29/17 09:20 Urine Blood Negative (NEGATIVE) 11/29/17 09:20 Urine Nitrate Negative (NEGATIVE) 11/29/17 09:20 Urine Bilirubin Negative (NEGATIVE) 11/29/17 09:20 Urine Urobilinogen 0.2-1.0 mg/dL (0.2-1.0) 11/29/17 09:20 Ur Leukocyte Esterase Small [place]/uL (Negative) 11/29/17 09:20 Urine RBC (Auto) 4 /hpf (0-3) H 11/29/17 09:20 Urine Microscopic WBC 11 /hpf (0-5) H 11/29/17 09:20 Ur Squamous Epith Cells < 1 /hpf (0-5) 11/29/17 09:20 Urine Bacteria Rare (<OCC) 11/29/17 09:20 Hyaline Casts 0-2 /hpf (0-2) 11/29/17 09:20 Discharge Exam - Head Exam Head Exam: NORMAL INSPECTION Discharge Plan - Discharge Medications Prescriptions: Ondansetron ODT [Zofran ODT] 4 mg PO Q6 PRN #20 odt PRN Reason: Nausea/Vomiting - Follow Up Plan Condition: GOOD Disposition: HOME/ ROUTINE Instructions: Nausea and Vomiting, Adult (DC), Colostomy Care Additional Instructions: follow up with primary md and your GI doctor in 1 week Referrals: Kelli Gaffney MD [Family Provider] - Noel Jamison MD [Staff Provider] -
[2017-11-30 16:04] VITALS: BP 104/64; PULSE 91; RESP 20; TEMP 98.3; O2SAT 92
== END 2017-11-30 16:32 | disposition home or self-care (01) ==
LOC: H.ER 08:12 → H.ERHOLD 14:53 → H.MEDSURG1 17:20
PROVIDERS: ADMIT Internal Medicine Pulmonary Disease; ATTEND Internal Medicine Pulmonary Disease
DX: J18.9 Pneumonia, unspecified organism (principal); J40 Bronchitis, not specified as acute or chronic; K51.90 Ulcerative colitis, unspecified, without complications; K80.20 Calculus of gallbladder without cholecystitis without obstruction; M06.9 Rheumatoid arthritis, unspecified; R64 Cachexia; Z68.1 Body mass index [BMI] 19.9 or less, adult; Z87.01 Personal history of pneumonia (recurrent); Z87.891 Personal history of nicotine dependence; Z90.49 Acquired absence of other specified parts of digestive tract; Z93.3 Colostomy status; Z96.642 Presence of left artificial hip joint; Z96.652 Presence of left artificial knee joint; F41.9 Anxiety disorder, unspecified; F45.9 Somatoform disorder, unspecified; M19.90 Unspecified osteoarthritis, unspecified site; Z85.819 Personal history of malignant neoplasm of unspecified site of lip, oral cavity, and pharynx; Z85.118 Personal history of other malignant neoplasm of bronchus and lung; I51.7 Cardiomegaly
CPT/HCPCS: 36415; 71045; 74018; 80053; 80061; 81003; 82150; 82803; 82948; 83690; 84436; 84443; 85025; 85027; 85610; 85730; 87040; 93005; 96374; 99284; C9113; G0378; J2765; J7040

== ENCOUNTER 2018-04-18 06:10 | Observation (INO) | payer MEDICARE ==
[2018-04-18 06:11] VITALS: BMI 14.6
[2018-04-18] MEDS ORDERED: Sodium Chloride 0.9% 1,000 ML IV STA (06:35)
[2018-04-18 07:05] LABS: VENOUS BLOOD GAS BASE EXCESS 2.6 mmol/L (0.0-2.0); VENOUS BLOOD GAS PCO2 41 mmHg (40-60); VENOUS BLOOD GAS PO2 33 mm/Hg (30-55); VENOUS BLOOD PH 7.43 (7.32-7.43)
--- NOTE | 2018-04-18 07:20 | ED PDOC ---
HPI:Nausea, Vomiting, Diarrhea Time Seen by Provider: 04/18/18 07:07 Chief Complaint (Nursing): GI Problem Chief Complaint (Provider): Nausea, fever History Per: Patient History/Exam Limitations: no limitations Onset/Duration Of Symptoms: Days (x2) Current Symptoms Are (Timing): Still Present Associated Symptoms: Fever, Nausea. denies: Diarrhea, Urinary Symptoms Additional Complaint(s): Clarissa Valdes is an 83 year old female, with a past medical history of rheumatoid arthritis, colitis s/p colectomy and colostomy, who presents to the emergency department complaining of nausea and dry heaves associated with fever onset for x2 days. Patient denies any diarrhea, cough or urinary symptoms. No further medical complaints. PMD: None provided. Past Medical History Reviewed: Historical Data, Nursing Documentation, Vital Signs Vital Signs: Last Vital Signs Temp 101.0 F H 04/18/18 06:18 Pulse 108 H 04/18/18 06:18 Resp 18 04/18/18 06:18 BP 130/67 04/18/18 06:18 Pulse Ox 94 L 04/18/18 06:18 - Medical History PMH: Arthritis, Pneumonia, Rheumatoid Arthritis Denies: HIV, Chronic Kidney Disease Other PMH: colitis - Surgical History Other surgeries: colectomy, colostomy - Family History Family History: States: Unknown Family Hx - Social History Current smoker - smoking cessation education provided: No Alcohol: None Drugs: Denies - Home Medications Home Medications: Ambulatory Orders Medication Instructions Recorded Calcium Carbonate/Vitamin D3 1 tab PO DAILY 11/28/17 [Caltrate 600 Plus D3 Tablet] Multivitamin [Multi-Vitamin Daily] 1 tab PO DAILY 11/28/17 Ondansetron ODT [Zofran ODT] 4 mg PO Q6 PRN #20 odt 11/29/17 - Allergies Allergies/Adverse Reactions: Allergies Allergy/AdvReac Type Severity Reaction Status Date / Time celecoxib [From Celebrex] Allergy RASH Verified 11/28/17 08:23 infliximab [From Remicade] Allergy RASH Verified 11/28/17 08:23 mesalamine Allergy RASH Verified 11/28/17 08:23 Penicillins Allergy RASH Verified 11/28/17 08:23 Sulfa (Sulfonamide Allergy RASH Verified 11/28/17 08:23 Antibiotics) Review of Systems ROS Statement: Except As Marked, All Systems Reviewed And Found Negative Constitutional: Positive for: Fever Respiratory: Negative for: Cough Gastrointestinal: Positive for: Nausea, Other (dry heaving). Negative for: Diarrhea Genitourinary Female: Negative for: Dysuria, Frequency, Hematuria Physical Exam - Reviewed Nursing Documentation Reviewed: Yes Vital Signs Reviewed: Yes - Physical Exam Appears: Positive for: No Acute Distress Head Exam: Positive for: ATRAUMATIC, NORMAL INSPECTION, NORMOCEPHALIC Skin: Positive for: Normal Color, Warm, Dry Eye Exam: Positive for: Normal appearance, EOMI, PERRL ENT: Positive for: Other (mucous membranes dry) Neck: Positive for: Painless ROM Cardiovascular/Chest: Positive for: Regular Rate, Rhythm. Negative for: Murmur Respiratory: Positive for: Normal Breath Sounds. Negative for: Respiratory Distress Gastrointestinal/Abdominal: Positive for: Normal Exam, Soft, Other (colostomy in place). Negative for: Tenderness Back: Positive for: Normal Inspection. Negative for: L CVA Tenderness, R CVA Tenderness, Vertebral Tenderness Extremity: Positive for: Deformity (of fingers due to rheumatoid arthritis) Neurologic/Psych: Positive for: Alert, Oriented - Laboratory Results Result Diagrams: 04/18/18 06:55 04/18/18 06:55 - ECG O2 Sat by Pulse Oximetry: 94 (RA) Pulse Ox Interpretation: Abnormal Medical Decision Making Medical Decision Making: Time: 07:07 Initial Plan: --VBG --Abd & Pelvis IV Contrast only [CT] --CMP --CBC w/ differential --Sodium Chloride 1,000 ml IV 200 mls/hr --Tylenol 325mg tab 650 mg PO --Zofran inj 4 mg IV --Blood culture --Urine culture --Urinalysis --Reevaluation 11:15 Abdomen/Pelvis CT FINDINGS: LOWER THORAX: Limited fibrotic changes are reiterated at the bilateral bases. No pleural or pericardial effusion. LIVER: Scattered lucencies are identified in the liver once again with medial left lobe lucency reduced in size from 2.5-1.3 cm greatest dimension. A new 9 mm lucency likely representing a cyst is seen near the dome anteriorly. A right lobe lucency is not significantly changed in size measuring 1.5 cm greatest dimension once again near the dome. A 1 cm peripheral lucency at the right lobe near the dome more posteriorly is stable. A tiny lucency is under 1 cm at the right lobe inferiorly, too small to characterize. GALLBLADDER AND BILE DUCTS: Cholelithiasis again seen within an otherwise unremarkable gallbladder. PANCREAS: Unremarkable. No gross lesion or ductal dilatation. SPLEEN: Unremarkable. ADRENALS: Right adrenal gland remains unremarkable. Mild thickening of the left adrenal gland is stable. KIDNEYS AND URETERS: Cortical lucencies at the upper and midpole left kidney as well as lower pole right kidney are stable. No obstructive uropathy bilaterally. No definite solid mass VASCULATURE: . non aneurysmal atherosclerotic abdominal aorta is reiterated as well as the iliac arterial system bilaterally. BOWEL: Evaluation of the gastrointestinal tract is limited due to the lack of oral contrast administration. No bowel obstruction identified. The stomach is minimally distended with retained fluid. Right lower quadrant ostomy now identified with patient poss status post complete colectomy. Clinically correlate further. 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 APPENDIX: Not identified. No definite CT pattern of appendicitis nevertheless. PERITONEUM: Unremarkable. No free fluid. No free air. LYMPH NODES: Unremarkable. No enlarged lymph nodes. BLADDER: Urinary bladder is largely obscured by a dense artifact related to bilateral hip replacement hardware, otherwise unremarkable. REPRODUCTIVE: Unremarkable. BONES: Stable severe anterior wedge compression fracture of T11 with no fracture of the lumbar vertebral bodies appreciated. Limited grade 1 spondylolisthesis is s table at L4-5 with L4 slightly anterior to L5 on the basis of facet joint degenerative arthropathy. No spondylolysis apparent. OTHER FINDINGS: Cachectic body habitus. IMPRESSION: 1. Interval questionable total colectomy with right lower quadrant colostomy and mucous fistula identified. No bowel obstruction appreciable at this time. Lack of oral contrast limits evaluation of the bowel in this cachectic patient. 2. Multiple hepatic cysts, variable in size in the interval with no suspicious findings. Additional hepatic lucencies are too small to characterize. No intrahepatic biliary dilatation. 3. Cholelithiasis. 4. Other lesser findings as discussed above. Scribe Attestation: Documented by [place], acting as a scribe for Eduar Carter MD. Provider Scribe Attestation: All medical record entries made by the Scribe were at my direction and personally dictated by me. I have reviewed the chart and agree that the record accurately reflects my personal performance of the history, physical exam, medical decision making, and the department course for this patient. I have also personally directed, reviewed, and agree with the discharge instructions and disposition. Disposition - Clinical Impression Clinical Impression: Dehydration - Patient ED Disposition Is Patient to be Admitted: Yes - Disposition Disposition Time: 13:32 Condition: FAIR Forms: [employer] (Bulgarian) - Pt Status Changed To: Hospital Disposition Of: Observation - POA Present On Arrival: None
[2018-04-18 08:11] LABS: BASO % 0.3 % (0.0-2.0); EOS % 0.2 % (0.0-4.0); HEMOGLOBIN 14.4 g/dL (12.0-16.0); LYMPH # 0.2 K/uL (1.0-4.3); LYMPH % 3.3 % (20.0-40.0); MEAN CELL VOLUME 92.9 fl (81.0-99.0); MEAN CORPUSCULAR HEMOGLOBIN 31.1 pg (27.0-31.0); MEAN CORPUSCULAR HGB CONC 33.5 g/dL (33.0-37.0); MEAN PLATELET VOLUME 7.7 fl (7.2-11.7); MONO # 0.3 K/uL (0.0-0.8); NEUT % 91.2 % (50.0-75.0); NRBC % 0.1 % (0.0-0.0); PLATELET COUNT 158 K/uL (130-400); RBC 4.63 Mil/uL (3.80-5.20); RED CELL DISTRIBUTION WIDTH 13.2 % (11.5-14.5); WHITE BLOOD COUNT 6.6 K/uL (4.8-10.8)
[2018-04-18 08:28] LABS: ALB/GLOB RATIO 0.9 (1.0-2.1); ALBUMIN 3.5 g/dL (3.5-5.0); BLOOD UREA NITROGEN 16 mg/dl (7-17); CALCIUM 8.6 mg/dL (8.4-10.2); GFR NON-AFRICAN AMERICAN > 60
[2018-04-18 08:29] LABS: ALT/SGPT 29 U/L (9-52); AST/SGOT 52 U/L (14-36)
[2018-04-18 09:05] LABS: BANDS 2 % (0-2); LYMPHOCYTE 2 % (20-50); NEUTROPHIL 92 % (42-75)
[2018-04-18 09:06] LABS: MONOCYTE 4 % (0-10); PLATELET ESTIMATE NORMAL (NORMAL); TOTAL CELLS COUNTED 100
[2018-04-18] MEDS ORDERED: Iohexol 300 100 ML IJ ONE (09:33)
[2018-04-18] MEDS ORDERED: Sodium Chloride 0.9% 50 ML IV ONE (09:34)
--- NOTE | 2018-04-18 11:17 | CT ---
Date of service: 04/18/2018 PROCEDURE: CT Abdomen and Pelvis with contrast HISTORY: Abd pain COMPARISON: Abdomen pelvis CT with contrast 12/27/2014. TECHNIQUE: Contrast dose: Omnipaque 300, 90 cc Radiation dose: Total exam DLP = 189.38 mGy-cm. This CT exam was performed using one or more of the following dose reduction techniques: Automated exposure control, adjustment of the mA and/or kV according to patient size, and/or use of iterative reconstruction technique. FINDINGS: LOWER THORAX: Limited fibrotic changes are reiterated at the bilateral bases. No pleural or pericardial effusion. LIVER: Scattered lucencies are identified in the liver once again with medial left lobe lucency reduced in size from 2.5-1.3 cm greatest dimension. A new 9 mm lucency likely representing a cyst is seen near the dome anteriorly. A right lobe lucency is not significantly changed in size measuring 1.5 cm greatest dimension once again near the dome. A 1 cm peripheral lucency at the right lobe near the dome more posteriorly is stable. A tiny lucency is under 1 cm at the right lobe inferiorly, too small to characterize. GALLBLADDER AND BILE DUCTS: Cholelithiasis again seen within an otherwise unremarkable gallbladder. PANCREAS: Unremarkable. No gross lesion or ductal dilatation. SPLEEN: Unremarkable. ADRENALS: Right adrenal gland remains unremarkable. Mild thickening of the left adrenal gland is stable. KIDNEYS AND URETERS: Cortical lucencies at the upper and midpole left kidney as well as lower pole right kidney are stable. No obstructive uropathy bilaterally. No definite solid mass VASCULATURE: . non aneurysmal atherosclerotic abdominal aorta is reiterated as well as the iliac arterial system bilaterally. BOWEL: Evaluation of the gastrointestinal tract is limited due to the lack of oral contrast administration. No bowel obstruction identified. The stomach is minimally distended with retained fluid. Right lower quadrant ostomy now identified with patient poss status post complete colectomy. Clinically correlate further. 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 APPENDIX: Not identified. No definite CT pattern of appendicitis nevertheless. PERITONEUM: Unremarkable. No free fluid. No free air. LYMPH NODES: Unremarkable. No enlarged lymph nodes. BLADDER: Urinary bladder is largely obscured by a dense artifact related to bilateral hip replacement hardware, otherwise unremarkable. REPRODUCTIVE: Unremarkable. BONES: Stable severe anterior wedge compression fracture of T11 with no fracture of the lumbar vertebral bodies appreciated. Limited grade 1 spondylolisthesis is stable at L4-5 with L4 slightly anterior to L5 on the basis of facet joint degenerative arthropathy. No spondylolysis apparent. OTHER FINDINGS: Cachectic body habitus. IMPRESSION: 1. Interval questionable total colectomy with right lower quadrant colostomy and mucous fistula identified. No bowel obstruction appreciable at this time. Lack of oral contrast limits evaluation of the bowel in this cachectic patient. 2. Multiple hepatic cysts, variable in size in the interval with no suspicious findings. Additional hepatic lucencies are too small to characterize. No intrahepatic biliary dilatation. 3. Cholelithiasis. 4. Other lesser findings as discussed above.
[2018-04-18 13:30] LABS: SQUAMOUS EPITHIAL < 1 /hpf (0-5); URINE BILIRUBIN NEGATIVE (NEGATIVE); URINE BLOOD SMALL (NEGATIVE); URINE CLARITY SLIGHTY-CLOUDY (Clear); URINE COLOR YELLOW (YELLOW); URINE GLUCOSE (UA) NEG (Normal); URINE LEUKOCYTE ESTERASE NEG Leu/uL (Negative); URINE PROTEIN 30 mg/dL (NEGATIVE); URINE UROBILINOGEN 0.2-1.0 mg/dL (0.2-1.0)
[2018-04-18] MEDS ORDERED: Sodium Chloride 0.9% 1,000 ML IV SCH (16:00)
[2018-04-19 06:39] LABS: HEMOGLOBIN 12.8 g/dL (12.0-16.0); MEAN CORPUSCULAR HEMOGLOBIN 31.1 pg (27.0-31.0); MEAN CORPUSCULAR HGB CONC 32.7 g/dL (33.0-37.0); RBC 4.13 Mil/uL (3.80-5.20); RED CELL DISTRIBUTION WIDTH 13.3 % (11.5-14.5); WHITE BLOOD COUNT 2.8 K/uL (4.8-10.8)
[2018-04-19 08:41] LABS: ALB/GLOB RATIO 0.8 (1.0-2.1); ALBUMIN 2.7 g/dL (3.5-5.0); ALT/SGPT 28 U/L (9-52); AST/SGOT 42 U/L (14-36); BLOOD UREA NITROGEN 12 mg/dl (7-17); CALCIUM 7.6 mg/dL (8.4-10.2); GFR NON-AFRICAN AMERICAN > 60
[2018-04-19] MEDS: Multivitamin With Minerals Tab PO SCH (11:00)
[2018-04-19] MEDS: Calcium-Vit D 500 mg-200 Units Tab UD PO SCH (11:00)
[2018-04-19] MEDS: Enoxaparin 40 mg Syringe SC SCH (11:15)
[2018-04-19] MEDS ORDERED: Potassium Chloride 20 mEq ER Tab PO ONE (12:04)
--- NOTE | 2018-04-19 12:05 | CP.PCM.HP ---
History of Present Illness - History of Present Illness History of Present Illness: 83 year old female with pmhx of rheumatoid arthritis and ulcerative colitis s/p colectomy and colostomy admitted for dehydration. Patient presented to ER yesterday with nausea and dry heaves associated with fever for 2 days. Patient states she feels like this whenever she is in stress (unable to give any particular stressors). Reports decreased PO intake. Denies any abdominal pain, diarrhea, chest pain, dyspnea, or urinary symptoms. ROS: all 12 systems reviewed and negative, except as mentioned in HPI PMHx: ulcerative colitis and rheumatoid arthritis SurgHx: left colostomy FMHx: noncontributory SocHx: denies tobacco, Etoh or drugs Medications: see medication reconciliation Allergies: celecoxib, infliximab, mesalamin, penicillin, sulfa drugs ED course: 1 L NS, Zofran, Tylenol, CT A/P Present on Admission - Present on Admission Any Indicators Present on Admission: No Review of Systems - Review of Systems All systems: reviewed and no additional remarkable complaints except Past Patient History - Past Medical History & Family History Past Medical History?: Yes - Past Social History Smoking Status: Never Smoked - CARDIAC Hx Cardiac Disorders: No - PULMONARY Hx Respiratory Disorders: Yes - NEUROLOGICAL Hx Neurological Disorder: No - HEENT Hx HEENT Problems: No - RENAL Hx Chronic Kidney Disease: No - ENDOCRINE/METABOLIC Hx Endocrine Disorders: No - HEMATOLOGICAL/ONCOLOGICAL Hx Blood Disorders: No - INTEGUMENTARY Hx Dermatological Problems: No - MUSCULOSKELETAL/RHEUMATOLOGICAL Hx Falls: No - GASTROINTESTINAL Hx Gastrointestinal Disorders: Yes Hx Colitis: Yes Hx Colostomy: Yes - GENITOURINARY/GYNECOLOGICAL Hx Genitourinary Disorders: No - PSYCHIATRIC Hx Substance Use: No - SURGICAL HISTORY Hx Surgeries: Yes Hx Orthopedic Surgery: Yes (BILATERAL KNEES, LT HIP REPLACEMENT) Other/Comment: right hip sx with pin - ANESTHESIA Hx Anesthesia: Yes Hx Anesthesia Reactions: No Hx Malignant Hyperthermia: No Meds Allergies/Adverse Reactions: Allergies Allergy/AdvReac Type Severity Reaction Status Date / Time celecoxib [From Celebrex] Allergy RASH Verified 11/28/17 08:23 infliximab [From Remicade] Allergy RASH Verified 11/28/17 08:23 mesalamine Allergy RASH Verified 11/28/17 08:23 Penicillins Allergy RASH Verified 11/28/17 08:23 Sulfa (Sulfonamide Allergy RASH Verified 11/28/17 08:23 Antibiotics) Physical Exam - Constitutional Appears: Non-toxic, No Acute Distress, Other (Thin appearing) - Head Exam Head Exam: ATRAUMATIC, NORMAL INSPECTION, NORMOCEPHALIC - Eye Exam Eye Exam: EOMI, Normal appearance - ENT Exam ENT Exam: Mucous Membranes Moist - Respiratory Exam Respiratory Exam: Clear to Auscultation Bilateral, NORMAL BREATHING PATTERN. absent: Rhonchi, Wheezes - Cardiovascular Exam Cardiovascular Exam: REGULAR RHYTHM, +S1, +S2 - GI/Abdominal Exam GI & Abdominal Exam: Normal Bowel Sounds, Soft. absent: Guarding, Rebound, Tenderness Additional comments: colostomy bag intact, draining output seen. No surrounding erythema, swelling or discharge near the colostomy. - Extremities Exam Extremities exam: Positive for: normal inspection, pedal pulses present. Negative for: calf tenderness, pedal edema - Back Exam Back exam: absent: CVA tenderness (L), CVA tenderness (R) - Neurological Exam Neurological exam: Alert, Oriented x3 - Psychiatric Exam Psychiatric exam: Normal Affect, Normal Mood - Skin Skin Exam: Normal Color, Warm Results - Vital Signs Recent Vital Signs: Last Vital Signs Temp 99.8 F H 04/19/18 07:58 Pulse 85 04/19/18 07:58 Resp 18 04/19/18 07:58 BP 109/62 04/19/18 07:58 Pulse Ox 94 L 04/19/18 07:58 - Labs Result Diagrams: 04/19/18 04:00 04/19/18 08:15 Labs: Laboratory Results - last 24 hr 04/18/18 04/19/18 04/19/18 13:00 04:00 08:15 WBC 2.8 L D RBC 4.13 Hgb 12.8 Hct 39.2 MCV 95.0 D MCH 31.1 H MCHC 32.7 L RDW 13.3 Plt Count 114 L D Sodium 137 Potassium 3.5 L Chloride 109 H Carbon Dioxide 23 Anion Gap 9 L BUN 12 Creatinine 0.7 Est GFR ( Amer) > 60 Est GFR (Non-Af Amer) > 60 Random Glucose 90 Calcium 7.6 L Total Bilirubin 0.2 AST 42 H ALT 28 Alkaline Phosphatase 51 Total Protein 5.9 L Albumin 2.7 L D Globulin 3.2 Albumin/Globulin Ratio 0.8 L Urine Color Yellow Urine Clarity Slighty-cloudy Urine pH 5.0 Ur Specific [place] 1.060 H Urine Protein 30 Urine Glucose (UA) Neg Urine Ketones Trace Urine Blood Small Urine Nitrate Negative Urine Bilirubin Negative Urine Urobilinogen 0.2-1.0 Ur Leukocyte Esterase Neg Urine RBC (Auto) 3 Urine Microscopic WBC 5 Ur Squamous Epith Cells < 1 Assessment & Plan - Assessment and Plan (Free Text) Assessment: 83 year old female with pmhx of rheumatoid arthritis and ulcerative colitis s/p colectomy and colostomy presented to ER yesterday with nausea and dry heaves associated with fever for 2 days. Patient is admitted for dehydration. Plan: Admit to med/surg CT A/P in ED: results reviewed IV fluids Zofran for nausea/vomiting AM labs Case discussed with Dr. Nikhil Luna, pgy-2
[2018-04-20 06:27] LABS: HEMOGLOBIN 12.9 g/dL (12.0-16.0); MEAN CELL VOLUME 93.6 fl (81.0-99.0); MEAN CORPUSCULAR HEMOGLOBIN 30.9 pg (27.0-31.0); RBC 4.18 Mil/uL (3.80-5.20); WHITE BLOOD COUNT 2.3 K/uL (4.8-10.8)
[2018-04-20 06:39] LABS: ALB/GLOB RATIO 0.8 (1.0-2.1); ALBUMIN 2.5 g/dL (3.5-5.0); ALT/SGPT 36 U/L (9-52); AST/SGOT 41 U/L (14-36); BLOOD UREA NITROGEN 8 mg/dl (7-17); CALCIUM 7.6 mg/dL (8.4-10.2); GFR NON-AFRICAN AMERICAN > 60
[2018-04-20 07:52] VITALS: BP 120/61; RESP 18; TEMP 98.8
--- NOTE | 2018-04-20 07:52 | CP.PCM.DIS ---
Provider - Provider Date of Admission: 04/18/18 13:33 Attending physician: Carlos Tejeda MD Time Spent in preparation of Discharge (in minutes): 25 Diagnosis - Discharge Diagnosis (1) Dehydration Status: Resolved (2) Hypokalemia Status: Acute (3) Nausea Status: Resolved Priority: High (4) Colostomy status Status: Chronic Priority: High Hospital Course - Lab Results Lab Results: Micro Results 04/18/18 13:00 Urine Urine Culture - Final No Growth (<1,000 CFU/ML) 04/18/18 06:55 Blood Blood Culture - Preliminary NO GROWTH AFTER 24 HOURS 04/18/18 07:25 Blood Blood Culture - Preliminary NO GROWTH AFTER 24 HOURS Most Recent Lab Values WBC 2.3 K/uL (4.8-10.8) L 04/20/18 05:30 RBC 4.18 Mil/uL (3.80-5.20) 04/20/18 05:30 Hgb 12.9 g/dL (12.0-16.0) 04/20/18 05:30 Hct 39.2 % (34.0-47.0) 04/20/18 05:30 MCV 93.6 fl (81.0-99.0) 04/20/18 05:30 MCH 30.9 pg (27.0-31.0) 04/20/18 05:30 MCHC 33.0 g/dL (33.0-37.0) 04/20/18 05:30 RDW 13.0 % (11.5-14.5) 04/20/18 05:30 Plt Count 94 K/uL (130-400) L D 04/20/18 05:30 MPV 7.7 fl (7.2-11.7) 04/18/18 06:55 Neut % (Auto) 91.2 % (50.0-75.0) H 04/18/18 06:55 Lymph % (Auto) 3.3 % (20.0-40.0) L 04/18/18 06:55 [place] % (Auto) 5.0 % (0.0-10.0) 04/18/18 06:55 Eos % (Auto) 0.2 % (0.0-4.0) 04/18/18 06:55 Baso % (Auto) 0.3 % (0.0-2.0) 04/18/18 06:55 Neut # (Auto) 6.0 K/uL (1.8-7.0) 04/18/18 06:55 Lymph # (Auto) 0.2 K/uL (1.0-4.3) L 04/18/18 06:55 [place] # (Auto) 0.3 K/uL (0.0-0.8) 04/18/18 06:55 Eos # (Auto) 0.0 K/uL (0.0-0.7) 04/18/18 06:55 Baso # (Auto) 0.0 K/uL (0.0-0.2) 04/18/18 06:55 Neutrophils % (Manual) 92 % (42-75) H 04/18/18 06:55 Band Neutrophils % 2 % (0-2) 04/18/18 06:55 Lymphocytes % (Manual) 2 % (20-50) L 04/18/18 06:55 Monocytes % (Manual) 4 % (0-10) 04/18/18 06:55 Platelet Estimate Normal (NORMAL) 04/18/18 06:55 RBC Morphology Normal (NORMAL) 04/18/18 06:55 pO2 33 mm/Hg (30-55) 04/18/18 06:38 VBG pH 7.43 (7.32-7.43) 04/18/18 06:38 VBG pCO2 41 mmHg (40-60) 04/18/18 06:38 VBG HCO3 26.0 mmol/L 04/18/18 06:38 VBG Total CO2 28.5 mmol/L (22-28) H 04/18/18 06:38 VBG O2 Sat (Calc) 68.2 % (40-65) H 04/18/18 06:38 VBG Base Excess 2.6 mmol/L (0.0-2.0) H 04/18/18 06:38 VBG Potassium 3.4 mmol/L (3.6-5.2) L 04/18/18 06:38 Sodium 136.0 mmol/L (132-148) 04/18/18 06:38 Chloride 101.0 mmol/L (98-107) 04/18/18 06:38 Glucose 143 mg/dL (65-105) H 04/18/18 06:38 Lactate 1.5 mmol/L (0.7-2.1) 04/18/18 06:38 FiO2 21.0 % 04/18/18 06:38 Sodium 137 mmol/l (132-148) 04/20/18 05:30 Potassium 3.3 MMOL/L (3.6-5.0) L 04/20/18 05:30 Chloride 109 mmol/L (98-107) H 04/20/18 05:30 Carbon Dioxide 22 mmol/L (22-30) 04/20/18 05:30 Anion Gap 9 (10-20) L 04/20/18 05:30 BUN 8 mg/dl (7-17) 04/20/18 05:30 Creatinine 0.7 mg/dl (0.7-1.2) 04/20/18 05:30 Est GFR ( Amer) > 60 04/20/18 05:30 Est GFR (Non-Af Amer) > 60 04/20/18 05:30 Random Glucose 84 mg/dL (65-105) 04/20/18 05:30 Calcium 7.6 mg/dL (8.4-10.2) L 04/20/18 05:30 Total Bilirubin 0.3 mg/dl (0.2-1.3) 04/20/18 05:30 AST 41 U/L (14-36) H 04/20/18 05:30 ALT 36 U/L (9-52) 04/20/18 05:30 Alkaline Phosphatase 50 U/L (38-126) 04/20/18 05:30 Total Protein 5.5 G/DL (6.3-8.2) L 04/20/18 05:30 Albumin 2.5 g/dL (3.5-5.0) L 04/20/18 05:30 Globulin 3.0 gm/dL (2.2-3.9) 04/20/18 05:30 Albumin/Globulin Ratio 0.8 (1.0-2.1) L 04/20/18 05:30 Venous Blood Potassium 3.4 mmol/L (3.6-5.2) L 04/18/18 06:38 Urine Color Yellow (YELLOW) 04/18/18 13:00 Urine Clarity Slighty-cloudy (Clear) 04/18/18 13:00 Urine pH 5.0 (5.0-8.0) 04/18/18 13:00 Ur Specific [place] 1.060 (1.003-1.030) H 04/18/18 13:00 Urine Protein 30 mg/dL (NEGATIVE) 04/18/18 13:00 Urine Glucose (UA) Neg mg/dL (Normal) 04/18/18 13:00 Urine Ketones Trace mg/dL (NEGATIVE) 04/18/18 13:00 Urine Blood Small (NEGATIVE) 04/18/18 13:00 Urine Nitrate Negative (NEGATIVE) 04/18/18 13:00 Urine Bilirubin Negative (NEGATIVE) 04/18/18 13:00 Urine Urobilinogen 0.2-1.0 mg/dL (0.2-1.0) 04/18/18 13:00 Ur Leukocyte Esterase Neg [place]/uL (Negative) 04/18/18 13:00 Urine RBC (Auto) 3 /hpf (0-3) 04/18/18 13:00 Urine Microscopic WBC 5 /hpf (0-5) 04/18/18 13:00 Ur Squamous Epith Cells < 1 /hpf (0-5) 04/18/18 13:00 - Hospital Course Hospital Course: 83 year old female with pmhx of rheumatoid arthritis and ulcerative colitis s/p colectomy and colostomy admitted for dehydration. Patient presented to ER on 04/18/18 with nausea and dry heaves associated with fever for 2 days. During the course of stay, patient received IV fluids and Zofran for nausea. Patient was given potassium supplements for hypokalemia. This morning, patient is tolerating PO and is hemodynamically stable to discharge home. Advised to take potassium supplement (KCl 20 meq po daily) and f/u with Dr. Tejeda on 04/24/18. Discharge Exam - Head Exam Head Exam: ATRAUMATIC, NORMAL INSPECTION, NORMOCEPHALIC - Eye Exam Eye Exam: Normal appearance - ENT Exam ENT Exam: Mucous Membranes Moist - Respiratory Exam Respiratory Exam: Clear to PA & Lateral, NORMAL BREATHING PATTERN. absent: Wheezes, Respiratory Distress - Cardiovascular Exam Cardiovascular Exam: REGULAR RHYTHM, +S1, +S2 - GI/Abdominal Exam GI & Abdominal Exam: Normal Bowel Sounds, Soft. absent: Tenderness - Neurological Exam Neurological exam: Alert, Oriented x3 - Psychiatric Exam Psychiatric exam: Normal Affect, Normal Mood - Skin Skin Exam: Normal Color, Warm Discharge Plan - Discharge Medications Prescriptions: Potassium Chloride [K-Dur 20 mEq ER Tab] 20 meq PO DAILY #14 tab - Follow Up Plan Condition: FAIR Disposition: HOME/ ROUTINE Instructions: Dehydration, Adult (DC) Additional Instructions: follow up with Dr. Tejeda on 04/24/18 to check for potassium level Referrals: Carlos Tejeda MD [Staff Provider] -
[2018-04-20] MEDS ORDERED: Potassium Chloride 20 mEq ER Tab PO ONE (08:30)
[2018-04-20] MEDS: Enoxaparin 40 mg Syringe SC SCH (09:29)
[2018-04-20] MEDS: Calcium-Vit D 500 mg-200 Units Tab UD PO SCH (09:30)
[2018-04-20] MEDS: Multivitamin With Minerals Tab PO SCH (09:30)
[2018-04-20 10:12] VITALS: PULSE 95; O2SAT 92
== END 2018-04-20 13:30 | disposition home or self-care (01) ==
LOC: H.ER 06:10 → H.ERHOLD 13:33 → H.MEDSURG1 14:46
PROVIDERS: ADMIT Internal Medicine; ATTEND Internal Medicine
DX: E86.0 Dehydration (principal); Z93.3 Colostomy status; Z96.642 Presence of left artificial hip joint; M06.9 Rheumatoid arthritis, unspecified; Z88.0 Allergy status to penicillin; E87.6 Hypokalemia; Z96.653 Presence of artificial knee joint, bilateral
CPT/HCPCS: 36415; 74177; 80053; 81003; 82803; 85025; 85027; 87040; 87086; 97162; 99285; G0378; G8978; G8979; J1650; J2405; J7030; Q9967

== ENCOUNTER 2018-09-12 14:57 | Inpatient (IN) | payer MEDICARE ==
[2018-09-12 14:57] VITALS: BMI 14.6
[2018-09-12] MEDS ORDERED: Sodium Chloride 0.9% 1,000 ML IV STA (15:45)
[2018-09-12 16:50] LABS: ALBUMIN 3.6 g/dL (3.5-5.0); ALT/SGPT 20 U/L (9-52); AST/SGOT 33 U/L (14-36); BASO % 0.3 % (0.0-2.0); BLOOD UREA NITROGEN 15 mg/dl (7-17); EOS % 0.2 % (0.0-4.0); GFR NON-AFRICAN AMERICAN > 60; HEMOGLOBIN 12.6 g/dL (12.0-16.0); LYMPH # 0.3 K/uL (1.0-4.3); LYMPH % 3.3 % (20.0-40.0); MEAN CELL VOLUME 95.5 fl (81.0-99.0); MEAN CORPUSCULAR HGB CONC 32.4 g/dL (33.0-37.0); MEAN PLATELET VOLUME 7.4 fl (7.2-11.7); MONO # 0.5 K/uL (0.0-0.8); MONO % 4.7 % (0.0-10.0); NEUT # 9.5 K/uL (1.8-7.0); NEUT % 91.5 % (50.0-75.0); PLATELET COUNT 283 K/uL (130-400); RBC 4.07 Mil/uL (3.80-5.20); RED CELL DISTRIBUTION WIDTH 13.1 % (11.5-14.5); WHITE BLOOD COUNT 10.4 K/uL (4.8-10.8)
--- NOTE | 2018-09-12 17:32 | ED PDOC ---
HPI: CCC, URI, Sore Throat Time Seen by Provider: 09/12/18 15:15 Chief Complaint (Nursing): Flu-like Symptoms Chief Complaint (Provider): Flu-like Symptoms History Per: Patient, Family (daughter) History/Exam Limitations: no limitations Onset/Duration Of Symptoms: Days (x3) Current Symptoms Are (Timing): Still Present Additional Complaint(s): 83 year old female with past history of ulcerative colitis and rheumatoid arthritis, arrives to the emergency department with daughter for an evaluation of nasal congestion for 3 days. Patient attempted to go to her nonhospital- affiliated specialists for an evaluation then subsequently felt symptoms became worse as she developed nausea and dry heaving. also decreased po intake. She denies any fever or chills, otherwise. PCP: none provided Past Medical History Reviewed: Historical Data, Nursing Documentation, Vital Signs Vital Signs: Last Vital Signs Temp 99.4 F 09/12/18 14:59 Pulse 110 H 09/12/18 14:59 Resp 18 09/12/18 14:59 BP 133/68 09/12/18 14:59 Pulse Ox 94 L 09/12/18 14:59 - Medical History PMH: Arthritis, Pneumonia, Rheumatoid Arthritis Denies: HIV, Chronic Kidney Disease Other PMH: ulcerative colitis - Surgical History Other surgeries: colostomy bag placed - Family History Family History: States: Unknown Family Hx - Social History Current smoker - smoking cessation education provided: No Alcohol: None Drugs: Denies - Home Medications Home Medications: Ambulatory Orders Medication Instructions Recorded Calcium Carbonate/Vitamin D3 1 tab PO DAILY 11/28/17 [Caltrate 600 Plus D3 Tablet] Multivit-Min/Iron/Folic/Lutein 1 tab PO DAILY 04/18/18 [Centrum Silver Women Tablet] Potassium Chloride [K-Dur 20 mEq 20 meq PO DAILY #14 tab 04/20/18 ER Tab] - Allergies Allergies/Adverse Reactions: Allergies Allergy/AdvReac Type Severity Reaction Status Date / Time celecoxib [From Celebrex] Allergy RASH Verified 09/12/18 14:58 infliximab [From Remicade] Allergy RASH Verified 09/12/18 14:58 mesalamine Allergy RASH Verified 09/12/18 14:58 Penicillins Allergy RASH Verified 09/12/18 14:58 Sulfa (Sulfonamide Allergy RASH Verified 09/12/18 14:58 Antibiotics) Review of Systems ROS Statement: Except As Marked, All Systems Reviewed And Found Negative Constitutional: Negative for: Fever, Chills ENT: Positive for: Nose Congestion, Other (dry heaving) Gastrointestinal: Positive for: Nausea Physical Exam - Reviewed Nursing Documentation Reviewed: Yes Vital Signs Reviewed: Yes - Physical Exam Appears: Positive for: No Acute Distress (weak and ill). Negative for: Well Head Exam: Positive for: ATRAUMATIC, NORMAL INSPECTION, NORMOCEPHALIC Skin: Positive for: Pallor. Negative for: Normal Color Eye Exam: Positive for: Normal appearance, EOMI, PERRL ENT: Positive for: Normal ENT Inspection, TM Is/Are (clear bilaterally. nonbulging and nonerythematous). Negative for: Pharyngeal Erythema, Tonsillar Swelling Neck: Positive for: Normal, Supple Cardiovascular/Chest: Positive for: Regular Rate, Rhythm Respiratory: Positive for: Normal Breath Sounds. Negative for: Wheezing, Respiratory Distress Gastrointestinal/Abdominal: Positive for: Other (colostomy bag with brown stools present on right-side) Extremity: Positive for: Normal ROM Neurologic/Psych: Positive for: Alert, Oriented. Negative for: Motor/Sensory Deficits - Laboratory Results Result Diagrams: 09/12/18 16:00 09/12/18 16:00 Lab Results: Total Bilirubin 0.2 mg/dl (0.2-1.3) 09/12/18 16:00 AST 33 U/L (14-36) 09/12/18 16:00 ALT 20 U/L (9-52) 09/12/18 16:00 Alkaline Phosphatase 80 U/L (38-126) 09/12/18 16:00 Total Protein 7.3 G/DL (6.3-8.2) 09/12/18 16:00 Albumin 3.6 g/dL (3.5-5.0) 09/12/18 16:00 Globulin 3.7 gm/dL (2.2-3.9) 09/12/18 16:00 Albumin/Globulin Ratio 1.0 (1.0-2.1) 09/12/18 16:00 - ECG O2 Sat by Pulse Oximetry: 94 (RA) Pulse Ox Interpretation: Normal Medical Decision Making Medical Decision Making: Time: 1544 Initial Plan: weaknes,uri symptoms rule out pneumonia vs flu, appears to be clinical pneumonia * Labs * IV fluids * Zofran 4mg IV * Blood culture * Urine C&S * Influenza AB * UA Time: 1600 --Accucheck: 137mg/dL. (-) influenza. Time: 2021 --CXR: right lobe pneumonia on preliminary read by me Time: 2034 --Patient admitted to hospital under Dr. Jamison, medical service, as her primary doctor is located in [place]. iv abx ordered (pt is allergic to penicllin) pt aware of admission and agreeable Time: 2100 --CXR FINDINGS: LUNGS: The lungs appear clear. PLEURAL SPACES: No pleural effusion or pneumothorax. MEDIASTINUM: The cardiomediastinal silhouette is within normal limits. Atheromatous plaquing is noted within the aortic arch. BONES: No acute osseous abnormality. The osseous structures are diffusely osteoporotic. IMPRESSION: 1. No acute cardiopulmonary pathology is evident. 2. Atheromatous plaquing within the aortic arch. 3. Diffuse osteoporosis. Scribe Attestation: Documented by Krystin Sands, acting as a scribe for Tin Grayson MD. Provider Scribe Attestation: All medical record entries made by the Scribe were at my direction and personally dictated by me. I have reviewed the chart and agree that the record accurately reflects my personal performance of the history, physical exam, medical decision making, and the department course for this patient. I have also personally directed, reviewed, and agree with the discharge instructions and disposition. Disposition - Clinical Impression Clinical Impression: Pneumonia - Patient ED Disposition Is Patient to be Admitted: Yes Counseled Patient/Family Regarding: Diagnosis - Disposition Disposition Time: 20:20 Condition: STABLE
[2018-09-12 18:43] LABS: BANDS 3 % (0-2); EOSINOPHIL 1 % (0-7); LYMPHOCYTE 6 % (20-50); MONOCYTE 5 % (0-10); NEUTROPHIL 85 % (42-75); PLATELET ESTIMATE NORMAL (NORMAL); TOTAL CELLS COUNTED 100
[2018-09-12 18:44] LABS: ANISOCYTOSIS SLIGHT; TOXIC GRANULATION PRESENT
[2018-09-12 19:46] LABS: URINE BILIRUBIN NEGATIVE (NEGATIVE); URINE BLOOD NEGATIVE (NEGATIVE); URINE CLARITY SLIGHT-CLOUDY (Clear); URINE COLOR YELLOW (YELLOW); URINE GLUCOSE (UA) NEGATIVE (NEGATIVE); URINE PROTEIN NEGATIVE (NEGATIVE); URINE UROBILINOGEN 0.2-1.0 mg/dL (0.2-1.0)
[2018-09-12 19:47] LABS: SQUAMOUS EPITHIAL 1 /hpf (0-5); URINE LEUKOCYTE ESTERASE NEGATIVE Leu/uL (Negative)
[2018-09-12] MEDS ORDERED: levoFLOXacin 500 mg in D5W 500 MG/100 ML BAG IVPB STA (20:23)
[2018-09-12] MEDS ORDERED: levoFLOXacin 500 mg in D5W 500 MG/100 ML BAG IVPB ONE (21:19)
[2018-09-12 21:43] LABS: VENOUS BLOOD GAS PCO2 49 mmHg (40-60); VENOUS BLOOD GAS PO2 45 mm/Hg (30-55); VENOUS BLOOD PH 7.43 (7.32-7.43)
[2018-09-13] MEDS ORDERED: Sodium Chloride 3% for Inhalation 4 ML VIAL.NEB IH PRN (10:58)
[2018-09-13] MEDS ORDERED: Promethazine/Cod 6.25mg-10mg/5ml Syr UD PO PRN (10:58)
--- NOTE | 2018-09-13 11:12 | RAD ---
Date of service: 09/12/2018 HISTORY: ro pneumonia COMPARISON: A frontal chest radiograph 11/27/2017. FINDINGS: LUNGS: Scattered pulmonary fibrosis appreciated bilaterally. No acute infiltrate bilaterally. PLEURA: No significant pleural effusion identified, no pneumothorax apparent. CARDIOVASCULAR: Calcific atherosclerotic changes are seen related to the thoracic aorta. Normal cardiac size. No pulmonary vascular congestion. OSSEOUS STRUCTURES: No significant abnormalities. VISUALIZED UPPER ABDOMEN: Normal. OTHER FINDINGS: None. IMPRESSION: No acute infiltrate, pleural effusion or pulmonary vascular congestion. No pneumothorax bilaterally. Scattered pulmonary fibrosis noted bilaterally.
[2018-09-13] MEDS: Albuterol-Ipratrop 3 mg / 0.5 (3 ml) UD INH SCH ×4 (12:09→23:36)
[2018-09-13] MEDS: Multivitamin With Minerals Tab PO SCH (12:11)
[2018-09-13] MEDS: guaiFENesin 600 mg ER Tab PO SCH ×2 (12:11→21:42)
[2018-09-13] MEDS: levoFLOXacin 500 mg in D5W 500 MG/100 ML BAG IVPB SCH (12:13)
[2018-09-13] MEDS ORDERED: Benzocaine/Menthol (Cepacol) Lozenge PO PRN (12:33)
[2018-09-13] MEDS: MethylPREDNISolone 40 mg Vial IVP SCH ×2 (13:24→17:44)
--- NOTE | 2018-09-13 15:12 | CP.PCM.HP ---
History of Present Illness - History of Present Illness History of Present Illness: 83 y/o F, with PMHx: R/A, Ulcerative Colitis, Colostomy, O/A, PNA. 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 Worsening symptoms: Anxiety, increased with nausea, body aches, mild headache, decreased appetite. Aggravated factor: Coughing. Pt denied: Chills, vomiting, diarrhea, abdominal pain, CP, palpitations, syncope, sick contact, recent travel out of [facility]. CXR: Scattered pulmonary fibrosis b/l. No acute infiltrate. Present on Admission - Present on Admission Any Indicators Present on Admission: No Review of Systems - Constitutional Constitutional: Fever (tactile), Headache, Weakness - EENT Eyes: Other (negative) Ears: Other (negtaive) Nose/Mouth/Throat: Nasal Congestion - Cardiovascular Cardiovascular: Other (negtaive) - Respiratory Respiratory: Cough, Wheezing, Change in Mucous Color - Gastrointestinal Gastrointestinal: Nausea Additional comments: Colostomy bag in place with surrounding mild erythema. - Genitourinary Genitourinary: Other (negative) - Musculoskeletal Musculoskeletal: Arthralgias - Integumentary Integumentary: Other (Scars from previous surgeries) - Neurological Neurological: Headaches (mild), Weakness - Psychiatric Psychiatric: Anxiety - Endocrine Endocrine: Other (negative) - Hematologic/Lymphatic Hematologic: Other (negative) Past Patient History - Past Medical History & Family History Past Medical History?: Yes Pertinent Family History: Unknown - Past Social History Smoking Status: Never Smoked Alcohol: None Drugs: Denies Home Situation {Lives}: With Family - CARDIAC Hx Cardiac Disorders: No - PULMONARY Hx Respiratory Disorders: Yes Hx Pneumonia: Yes - NEUROLOGICAL Hx Neurological Disorder: No - HEENT Hx HEENT Problems: No Other/Comment: Needs reading glasses - RENAL Hx Chronic Kidney Disease: No - ENDOCRINE/METABOLIC Hx Endocrine Disorders: No - HEMATOLOGICAL/ONCOLOGICAL Hx Blood Disorders: No Hx Human Immunodeficiency Virus (HIV): No - INTEGUMENTARY Hx Dermatological Problems: No - MUSCULOSKELETAL/RHEUMATOLOGICAL Hx Musculoskeletal Disorders: Yes Hx Arthritis: Yes Hx Falls: No Hx Rheumatoid Arthritis: Yes - GASTROINTESTINAL Hx Gastrointestinal Disorders: Yes Hx Colitis: Yes Hx Colostomy: Yes - GENITOURINARY/GYNECOLOGICAL Hx Genitourinary Disorders: No - PSYCHIATRIC Hx Psychophysiologic Disorder: Yes Hx Anxiety: Yes Hx Substance Use: No - SURGICAL HISTORY Hx Surgeries: Yes Hx Orthopedic Surgery: Yes (BILATERAL KNEES, LT HIP REPLACEMENT) Other/Comment: right hip sx with pin, Colostomy - ANESTHESIA Hx Anesthesia: Yes Hx Anesthesia Reactions: No Hx Malignant Hyperthermia: No Meds Home Medications: Home Medication List Medication Instructions Recorded Confirmed Type Acetaminophen [Tylenol 325mg tab] 650 mg PO Q6 PRN tab 09/15/18 Rx Albuterol/Ipratropium [Duoneb 3 3 ml INH RQ4 neb 09/15/18 Rx mg/0.5 mg (3 ml) UD] Benzocaine/Menthol [Cepacol Sore 1 keena PO Q2 PRN keena 09/15/18 Rx Throat] Fluticasone Propionate [Flonase] 1 spr YESENIA BID bottle 09/15/18 Rx Promethazine/Codeine 5 ml PO Q6 PRN udc 09/15/18 Rx [Phenergan/Codeine Oral Syrup] guaiFENesin [Mucinex LA] 600 mg PO Q12 tab 09/15/18 Rx levoFLOXacin 500 mg in D5W 500 mg IVPB DAILY #5 bag 09/15/18 Rx [Levaquin 500MG] methylPREDNISolone [Solu-Medrol] 30 mg IVP Q8 ml 09/15/18 Rx Allergies/Adverse Reactions: Allergies Allergy/AdvReac Type Severity Reaction Status Date / Time celecoxib [From Celebrex] Allergy RASH Verified 09/12/18 14:58 infliximab [From Remicade] Allergy RASH Verified 09/12/18 14:58 mesalamine Allergy RASH Verified 09/12/18 14:58 Penicillins Allergy RASH Verified 09/12/18 14:58 Sulfa (Sulfonamide Allergy RASH Verified 09/12/18 14:58 Antibiotics) Physical Exam - Constitutional Appears: No Acute Distress - Head Exam Head Exam: NORMAL INSPECTION - Eye Exam Eye Exam: PERRL - ENT Exam ENT Exam: Normal Exam - Neck Exam Neck exam: Positive for: Normal Inspection - Respiratory Exam Respiratory Exam: Rhonchi (b/l), Wheezes - Cardiovascular Exam Cardiovascular Exam: REGULAR RHYTHM - GI/Abdominal Exam GI & Abdominal Exam: Soft Additional comments: Colostomy bag in place - Extremities Exam Additional comments: Healed scar from previous surgery of L hip, R-L knee. - Neurological Exam Neurological exam: Alert, Oriented x3 - Psychiatric Exam Psychiatric exam: Normal Mood - Skin Skin Exam: Warm Results - Vital Signs Recent Vital Signs: Last Vital Signs Temp 97.8 F 09/13/18 14:43 Pulse 94 H 09/13/18 14:43 Resp 20 09/13/18 14:43 BP 111/64 09/13/18 14:43 Pulse Ox 94 L 09/13/18 14:43 reviewed David - Labs Result Diagrams: 09/14/18 05:20 09/14/18 05:20 Labs: Laboratory Results - last 24 hr 09/12/18 09/12/18 09/12/18 16:00 16:00 16:00 WBC 10.4 D RBC 4.07 Hgb 12.6 Hct 38.8 MCV 95.5 MCH 31.0 MCHC 32.4 L RDW 13.1 Plt Count 283 D MPV 7.4 Neut % (Auto) 91.5 H Lymph % (Auto) 3.3 L [place] % (Auto) 4.7 Eos % (Auto) 0.2 Baso % (Auto) 0.3 Neut # (Auto) 9.5 H Lymph # (Auto) 0.3 L [place] # (Auto) 0.5 Eos # (Auto) 0.0 Baso # (Auto) 0.0 Neutrophils % (Manual) 85 H Band Neutrophils % 3 H Lymphocytes % (Manual) 6 L Monocytes % (Manual) 5 Eosinophils % (Manual) 1 Toxic Granulation Present Platelet Estimate Normal Anisocytosis (manual) Slight Macrocytosis (manual) Slight pO2 VBG pH VBG pCO2 VBG HCO3 VBG Total CO2 VBG O2 Sat (Calc) VBG Base Excess VBG Potassium Glucose Lactate FiO2 Sodium 138 Potassium 4.3 Chloride 97 L Carbon Dioxide 32 H Anion Gap 13 BUN 15 Creatinine 0.8 Est GFR ( Amer) > 60 Est GFR (Non-Af Amer) > 60 Random Glucose 137 H Calcium 10.0 Total Bilirubin 0.2 AST 33 ALT 20 Alkaline Phosphatase 80 Total Protein 7.3 Albumin 3.6 Globulin 3.7 Albumin/Globulin Ratio 1.0 Venous Blood Potassium Urine Color Urine Clarity Urine pH Ur Specific [place] Urine Protein Urine Glucose (UA) Urine Ketones Urine Blood Urine Nitrate Urine Bilirubin Urine Urobilinogen Ur Leukocyte Esterase Urine RBC (Auto) Urine Microscopic WBC Ur Squamous Epith Cells Influenza Typ A,B (EIA) Negative for flu a/b 09/12/18 09/12/18 19:19 21:40 WBC RBC Hgb Hct MCV MCH MCHC RDW Plt Count MPV Neut % (Auto) Lymph % (Auto) [place] % (Auto) Eos % (Auto) Baso % (Auto) Neut # (Auto) Lymph # (Auto) [place] # (Auto) Eos # (Auto) Baso # (Auto) Neutrophils % (Manual) Band Neutrophils % Lymphocytes % (Manual) Monocytes % (Manual) Eosinophils % (Manual) Toxic Granulation Platelet Estimate Anisocytosis (manual) Macrocytosis (manual) pO2 45 VBG pH 7.43 VBG pCO2 49 VBG HCO3 30.0 VBG Total CO2 34.0 H VBG O2 Sat (Calc) 84.8 H VBG Base Excess 7.0 H VBG Potassium 4.1 Glucose 117 H Lactate 0.7 FiO2 21.0 Sodium 139.0 Potassium Chloride 109.0 H Carbon Dioxide Anion Gap BUN Creatinine Est GFR ( Amer) Est GFR (Non-Af Amer) Random Glucose Calcium Total Bilirubin AST ALT Alkaline Phosphatase Total Protein Albumin Globulin Albumin/Globulin Ratio Venous Blood Potassium 4.1 Urine Color Yellow Urine Clarity Slight-cloudy Urine pH 5.0 Ur Specific [place] 1.018 Urine Protein Negative Urine Glucose (UA) Negative Urine Ketones Negative Urine Blood Negative Urine Nitrate Negative Urine Bilirubin Negative Urine Urobilinogen 0.2-1.0 Ur Leukocyte Esterase Negative Urine RBC (Auto) 3 Urine Microscopic WBC 2 Ur Squamous Epith Cells 1 Influenza Typ A,B (EIA) reviewed J.P. - Imaging and Cardiology Chest x-ray Status: Report reviewed by me (J.P.) Assessment & Plan (1) Acute bronchitis Status: Acute Priority: High (2) COPD exacerbation Status: Acute Priority: High (3) Pulmonary fibrosis Status: Acute Priority: High (4) Fever Status: Resolved Priority: Medium Comment: Tactile (5) Nausea Status: Acute Priority: High (6) Weakness Status: Acute Priority: Medium (7) Anxiety Status: Chronic Priority: Medium (8) Colostomy status Status: Chronic Priority: High (9) RA (rheumatoid arthritis) Status: Chronic Priority: High - Assessment and Plan (Free Text) Plan: Continue O2 NC, Blood C-S, U C-S, Sputum C-S, CT Chest w/o contrast, continue Levaquin, Solu Medrol, Mucinex, Promethazine with Co, Zofran and rest of Tx. - Date & Time Date: 09/13/18 Time: 09:50
[2018-09-14] MEDS: MethylPREDNISolone 40 mg Vial IVP SCH ×3 (00:55→16:41)
[2018-09-14] MEDS: Albuterol-Ipratrop 3 mg / 0.5 (3 ml) UD INH SCH ×5 (04:37→19:19)
[2018-09-14 06:10] LABS: MEAN CELL VOLUME 95.3 fl (81.0-99.0); MEAN CORPUSCULAR HEMOGLOBIN 31.5 pg (27.0-31.0); MEAN CORPUSCULAR HGB CONC 33.1 g/dL (33.0-37.0); RBC 3.8 Mil/uL (3.80-5.20); RED CELL DISTRIBUTION WIDTH 13.1 % (11.5-14.5); WHITE BLOOD COUNT 5.6 K/uL (4.8-10.8)
[2018-09-14 06:22] LABS: BLOOD UREA NITROGEN 15 mg/dl (7-17); GFR NON-AFRICAN AMERICAN 60; HDL CHOLESTEROL 54 MG/DL (30-70)
[2018-09-14 06:33] LABS: LDL CHOLESTEROL 84 mg/dL (0-129)
[2018-09-14 06:45] LABS: T3 0.495 nmol/L (1.49-2.60)
[2018-09-14] MEDS: Multivitamin With Minerals Tab PO SCH (09:23)
[2018-09-14] MEDS: guaiFENesin 600 mg ER Tab PO SCH ×2 (09:23→20:50)
[2018-09-14] MEDS: levoFLOXacin 500 mg in D5W 500 MG/100 ML BAG IVPB SCH (10:00)
--- NOTE | 2018-09-14 14:48 | CT ---
Date of service: 09/14/2018 PROCEDURE: CT Chest without contrast HISTORY: Pneumonia COMPARISON: None available. TECHNIQUE: Contiguous axial images were obtained through the chest without intravenous contrast enhancement. Sagittal and coronal reconstructions were performed. Radiation dose (DLP): 155.22 mGy-cm. This CT exam was performed using one or more of the following dose reduction techniques: Automated exposure control, adjustment of the mA and/or kV according to patient size, and/or use of iterative reconstruction technique. FINDINGS: LUNGS: Stable volume loss with bronchiectasis in the anterior segment right upper lobe. There is minimal focal bronchiectasis in the lingular segment of the left upper lobe not seen on prior examination though focal linear scar was evident in this location on prior examination. No new bronchiectasis. Scattered very small nodules are noted bilaterally. No pulmonary infiltrate. Subsegmental atelectasis right lower lobe. MEDIASTINUM: Unremarkable thoracic aorta. No aneurysm. Normal sized heart. Main pulmonary artery unremarkable. No vascular congestion. No lymphadenopathy. There is atherosclerotic calcification of the thoracic aorta. There is a 10 mm nodule in the lower pole right lobe thyroid for which correlation with thyroid ultrasound examination is advised. PLEURA: No pleural fluid. No pneumothorax. BONES: Compression fractures of the T8, T10 and T12 vertebrae not seen on prior examination. Nevertheless, age indeterminate. There is ill-defined heterogeneous sclerosis within the C7 and T1 vertebral bodies, uncertain significance. Increased attenuation is also seen within the T10 vertebra, again heterogeneous and uncertain significance. Consider correlation with radionuclide bone scan for possible skeletal metastasis. UPPER ABDOMEN: Multiple low-density lesions within both lobes of the liver of varying size, all of which have decreased in size compared to 02/13/2012. Uncertain significance. OTHER FINDINGS: None. IMPRESSION: Stable volume loss with bronchiectasis in the anterior segment right upper lobe. Minimal focal bronchiectasis lingular segment left upper lobe. Right lower lobe minimal subsegmental atelectasis. Scattered very small pulmonary nodules common nonspecific. Nodule in right lobe of thyroid. Correlate with thyroid ultrasound examination. Compression fractures of T8, T10 and T12 vertebrae. Several areas of heterogeneous sclerosis in thoracic vertebrae for which evaluation with radionuclide bone scan should be considered. Additional minor findings as above.
--- NOTE | 2018-09-14 20:23 | CP.PCM.PN ---
Subjective - Date & Time of Evaluation Date of Evaluation: 09/14/18 Time of Evaluation: 10:00 - Subjective Subjective: F/U Acute Bronchitis. Pt awake, no SOB, coughing at times, non productive, Objective - Vital Signs/Intake and Output Vital Signs (last 24 hours): Temp Pulse Resp BP Pulse Ox 98.3 F 113 H 18 98/57 L 95 09/14/18 20:05 09/14/18 20:05 09/14/18 20:05 09/14/18 20:05 09/14/18 20:05 - Medications Medications: Current Medications Acetaminophen (Tylenol 325mg Tab) 650 mg PO Q6 PRN PRN Reason: Pain, Mild (1-3) Albuterol/Ipratropium (Duoneb 3 Mg/0.5 Mg (3 Ml) Ud) 3 ml INH RQ4 EMILY Last Admin: 09/14/18 19:19 Dose: 3 ml Benzocaine/Menthol (Cepacol Sore Throat) 1 keena PO Q2 PRN PRN Reason: Sore Throat Last Admin: 09/13/18 13:23 Dose: 1 keena Fluticasone Propionate (Flonase) 1 spr YESENIA BID EMILY Last Admin: 09/14/18 16:40 Dose: 1 spr Guaifenesin (Mucinex La) 600 mg PO Q12 EMILY Last Admin: 09/14/18 09:23 Dose: 600 mg Levofloxacin/Dextrose (Levaquin 500mg) 500 mg in 100 mls @ 100 mls/hr IVPB DAILY EMILY; Protocol Last Admin: 09/14/18 10:00 Dose: 100 mls/hr Methylprednisolone (Solu-Medrol) 40 mg IVP Q8 EMILY Last Admin: 09/14/18 16:41 Dose: 40 mg Multivitamins/Minerals (Therapeutic-M Tab) 1 tab PO DAILY EMILY Last Admin: 09/14/18 09:23 Dose: 1 tab Ondansetron HCl (Zofran Inj) 4 mg IVP Q6 PRN PRN Reason: Nausea/Vomiting Last Admin: 09/13/18 13:47 Dose: 4 mg Promethazine HCl/Codeine (Phenergan/Codeine Oral Syrup) 5 ml PO Q6 PRN PRN Reason: Cough - Labs Labs: 09/14/18 05:20 03/07/19 05:20 - Constitutional Appears: No Acute Distress - Head Exam Head Exam: NORMAL INSPECTION - Eye Exam Eye Exam: PERRL - ENT Exam ENT Exam: Normal Exam - Neck Exam Neck Exam: Normal Inspection - Respiratory Exam Respiratory Exam: Rhonchi (b/l), Wheezes - Cardiovascular Exam Cardiovascular Exam: REGULAR RHYTHM - GI/Abdominal Exam GI & Abdominal Exam: Soft Additional comments: Colostomy bag in place - Extremities Exam Additional comments: Healed scar from previous on L hip, R-L knee - Neurological Exam Neurological Exam: Alert, Oriented x3 - Psychiatric Exam Psychiatric exam: Normal Mood - Skin Skin Exam: Warm Assessment and Plan (1) Acute bronchitis Status: Acute (2) COPD exacerbation Status: Acute (3) Pulmonary fibrosis Status: Acute (4) Fever Status: Resolved (5) Nausea Status: Acute (6) Weakness Status: Acute (7) Anxiety Status: Chronic (8) Colostomy status Status: Chronic (9) RA (rheumatoid arthritis) Status: Chronic - Assessment and Plan (Free Text) Plan: Continue O2 NC, Levaquin, Duoneb, Mucinex and rest of tx.
[2018-09-15] MEDS: MethylPREDNISolone 40 mg Vial IVP SCH ×4 (00:05→17:35)
[2018-09-15] MEDS: Albuterol-Ipratrop 3 mg / 0.5 (3 ml) UD INH SCH ×5 (00:10→15:18)
--- NOTE | 2018-09-15 09:31 | CP.PCM.PCO ---
Assessment & Plan - Assessment and Plan (Free Text) Assessment: pt. seen and examined Feel weak this morning, reports mild cough, improved sob, denies fever, chills, n/vd Lung few scatterred ronchi, + kyphosis s1s2 rrr abd soft, colostomy draining liquid brown stool voiding freely CT chest: Bronchiectasis RUL, YAMIL, RLL atelectasis several areas of heterogenous sclerosis in thoracic vertebrae, bone scan recommended + compression fx T vertebrae (reviewed previous CT, appears chronic) pt. w/ hx OA Cont . Levaquin iv daily Taper steroids to solumedrol iv 30 q 8 cont. monito cbc, bmp PT/Eval for deconditioning
[2018-09-15] MEDS: levoFLOXacin 500 mg in D5W 500 MG/100 ML BAG IVPB SCH (09:41)
[2018-09-15] MEDS: guaiFENesin 600 mg ER Tab PO SCH (09:50)
[2018-09-15] MEDS: Multivitamin With Minerals Tab PO SCH (09:50)
[2018-09-15 12:09] VITALS: TEMP 97.7
--- NOTE | 2018-09-15 14:39 | CP.PCM.PN ---
Objective - Vital Signs/Intake and Output Vital Signs (last 24 hours): Temp Pulse Resp BP Pulse Ox 97.7 F 108 H 18 103/56 L 95 09/15/18 12:08 09/15/18 12:08 09/15/18 12:08 09/15/18 12:08 09/15/18 12:08 - Medications Medications: Current Medications Acetaminophen (Tylenol 325mg Tab) 650 mg PO Q6 PRN PRN Reason: Pain, Mild (1-3) Albuterol/Ipratropium (Duoneb 3 Mg/0.5 Mg (3 Ml) Ud) 3 ml INH RQ4 REPLACED BY [facility] Last Admin: 09/15/18 11:24 Dose: 3 ml Benzocaine/Menthol (Cepacol Sore Throat) 1 keena PO Q2 PRN PRN Reason: Sore Throat Last Admin: 09/13/18 13:23 Dose: 1 keena Fluticasone Propionate (Flonase) 1 spr YESENIA BID REPLACED BY [facility] Last Admin: 09/15/18 09:41 Dose: 1 spr Guaifenesin (Mucinex La) 600 mg PO Q12 REPLACED BY [facility] Last Admin: 09/14/18 20:50 Dose: 600 mg Levofloxacin/Dextrose (Levaquin 500mg) 500 mg in 100 mls @ 100 mls/hr IVPB DAILY REPLACED BY [facility]; Protocol Last Admin: 09/15/18 09:41 Dose: 100 mls/hr Methylprednisolone (Solu-Medrol) 30 mg IVP Q8 REPLACED BY [facility] Last Admin: 09/15/18 09:13 Dose: Not Given Multivitamins/Minerals (Therapeutic-M Tab) 1 tab PO DAILY REPLACED BY [facility] Last Admin: 09/14/18 09:23 Dose: 1 tab Ondansetron HCl (Zofran Inj) 4 mg IVP Q6 PRN PRN Reason: Nausea/Vomiting Last Admin: 09/13/18 13:47 Dose: 4 mg Promethazine HCl/Codeine (Phenergan/Codeine Oral Syrup) 5 ml PO Q6 PRN PRN Reason: Cough - Labs Labs: 09/14/18 05:20 09/14/18 05:20 Assessment and Plan (1) Acute bronchitis Status: Acute (2) Pulmonary fibrosis Status: Acute (3) Fever Status: Resolved (4) Nausea Status: Acute (5) Weakness Status: Acute (6) Anxiety Status: Chronic (7) Colostomy status Status: Chronic (8) RA (rheumatoid arthritis) Status: Chronic
[2018-09-15 15:50] VITALS: BP 111/52; PULSE 106; RESP 17; O2SAT 93
--- NOTE | 2018-09-15 20:51 | CP.PCM.DIS ---
Provider - Provider Date of Admission: 09/12/18 20:34 Attending physician: Noel Jamison MD Consults: 09/13/18 11:50 Pastoral Care Referral Routine Comment: Physician Instructions: Reason For Exam: recent loss of family memebres Time Spent in preparation of Discharge (in minutes): 35 Diagnosis - Discharge Diagnosis (1) Acute bronchitis Status: Acute Priority: High (2) COPD exacerbation Status: Acute Priority: High (3) Pulmonary fibrosis Status: Acute Priority: High (4) Fever Status: Resolved Priority: Medium (5) Nausea Status: Acute Priority: High (6) Weakness Status: Acute Priority: Medium (7) Anxiety Status: Chronic Priority: Medium (8) Colostomy status Status: Chronic Priority: High (9) RA (rheumatoid arthritis) Status: Chronic Priority: High Hospital Course - Lab Results Lab Results: Micro Results 09/12/18 16:30 Blood Blood Culture - Preliminary NO GROWTH AFTER 3 DAYS 09/12/18 16:00 Blood Blood Culture - Preliminary NO GROWTH AFTER 3 DAYS 09/13/18 13:30 Sputum Gram Stain - Final 09/13/18 13:30 Sputum Sputum Culture - Preliminary Gram Positive Cocci 09/12/18 19:19 Urine Random Urine Culture - Final No Growth (<1,000 CFU/ML) Most Recent Lab Values WBC 5.6 K/uL (4.8-10.8) 09/14/18 05:20 RBC 3.80 Mil/uL (3.80-5.20) 09/14/18 05:20 Hgb 12.0 g/dL (12.0-16.0) 09/14/18 05:20 Hct 36.2 % (34.0-47.0) 09/14/18 05:20 MCV 95.3 fl (81.0-99.0) 09/14/18 05:20 MCH 31.5 pg (27.0-31.0) H 09/14/18 05:20 MCHC 33.1 g/dL (33.0-37.0) 09/14/18 05:20 RDW 13.1 % (11.5-14.5) 09/14/18 05:20 Plt Count 228 K/uL (130-400) 09/14/18 05:20 MPV 7.4 fl (7.2-11.7) 09/12/18 16:00 Neut % (Auto) 91.5 % (50.0-75.0) H 09/12/18 16:00 Lymph % (Auto) 3.3 % (20.0-40.0) L 09/12/18 16:00 Glynn % (Auto) 4.7 % (0.0-10.0) 09/12/18 16:00 Eos % (Auto) 0.2 % (0.0-4.0) 09/12/18 16:00 Baso % (Auto) 0.3 % (0.0-2.0) 09/12/18 16:00 Neut # (Auto) 9.5 K/uL (1.8-7.0) H 09/12/18 16:00 Lymph # (Auto) 0.3 K/uL (1.0-4.3) L 09/12/18 16:00 Glynn # (Auto) 0.5 K/uL (0.0-0.8) 09/12/18 16:00 Eos # (Auto) 0.0 K/uL (0.0-0.7) 09/12/18 16:00 Baso # (Auto) 0.0 K/uL (0.0-0.2) 09/12/18 16:00 Neutrophils % (Manual) 85 % (42-75) H 09/12/18 16:00 Band Neutrophils % 3 % (0-2) H 09/12/18 16:00 Lymphocytes % (Manual) 6 % (20-50) L 09/12/18 16:00 Monocytes % (Manual) 5 % (0-10) 09/12/18 16:00 Eosinophils % (Manual) 1 % (0-7) 09/12/18 16:00 Toxic Granulation Present 09/12/18 16:00 Platelet Estimate Normal (NORMAL) 09/12/18 16:00 Anisocytosis (manual) Slight 09/12/18 16:00 Macrocytosis (manual) Slight 09/12/18 16:00 pO2 45 mm/Hg (30-55) 09/12/18 21:40 VBG pH 7.43 (7.32-7.43) 09/12/18 21:40 VBG pCO2 49 mmHg (40-60) 09/12/18 21:40 VBG HCO3 30.0 mmol/L 09/12/18 21:40 VBG Total CO2 34.0 mmol/L (22-28) H 09/12/18 21:40 VBG O2 Sat (Calc) 84.8 % (40-65) H 09/12/18 21:40 VBG Base Excess 7.0 mmol/L (0.0-2.0) H 09/12/18 21:40 VBG Potassium 4.1 mmol/L (3.6-5.2) 09/12/18 21:40 Sodium 139.0 mmol/L (132-148) 09/12/18 21:40 Chloride 109.0 mmol/L (98-107) H 09/12/18 21:40 Glucose 117 mg/dL (65-105) H 09/12/18 21:40 Lactate 0.7 mmol/L (0.7-2.1) 09/12/18 21:40 FiO2 21.0 % 09/12/18 21:40 Sodium 139 mmol/l (132-148) 09/14/18 05:20 Potassium 3.7 MMOL/L (3.6-5.0) 09/14/18 05:20 Chloride 97 mmol/L (98-107) L 09/14/18 05:20 Carbon Dioxide 26 mmol/L (22-30) 09/14/18 05:20 Anion Gap 20 (10-20) 09/14/18 05:20 BUN 15 mg/dl (7-17) 09/14/18 05:20 Creatinine 0.9 mg/dl (0.7-1.2) 09/14/18 05:20 Est GFR ( Amer) > 60 09/14/18 05:20 Est GFR (Non-Af Amer) 60 09/14/18 05:20 Random Glucose 163 mg/dL (65-105) H 09/14/18 05:20 Calcium 9.0 mg/dL (8.4-10.2) 09/14/18 05:20 Total Bilirubin 0.2 mg/dl (0.2-1.3) 09/12/18 16:00 AST 33 U/L (14-36) 09/12/18 16:00 ALT 20 U/L (9-52) 09/12/18 16:00 Alkaline Phosphatase 80 U/L (38-126) 09/12/18 16:00 Total Protein 7.3 G/DL (6.3-8.2) 09/12/18 16:00 Albumin 3.6 g/dL (3.5-5.0) 09/12/18 16:00 Globulin 3.7 gm/dL (2.2-3.9) 09/12/18 16:00 Albumin/Globulin Ratio 1.0 (1.0-2.1) 09/12/18 16:00 Triglycerides 55 mg/DL (0-149) D 09/14/18 05:20 Cholesterol 164 mg/dL (0-199) 09/14/18 05:20 LDL Cholesterol Direct 84 mg/dL (0-129) 09/14/18 05:20 HDL Cholesterol 54 MG/DL (30-70) 09/14/18 05:20 Thyroxine (T4) 6.26 ug/dl (5.5-11.0) 09/14/18 05:20 Total T3 0.495 nmol/L (1.49-2.60) L 09/14/18 05:20 TSH 3rd Generation 0.62 mIU/ML (0.46-4.68) 09/14/18 05:20 Venous Blood Potassium 4.1 mmol/L (3.6-5.2) 09/12/18 21:40 Urine Color Yellow (YELLOW) 09/12/18 19:19 Urine Clarity Slight-cloudy (Clear) 09/12/18 19:19 Urine pH 5.0 (5.0-8.0) 09/12/18 19:19 Ur Specific [place] 1.018 (1.003-1.030) 09/12/18 19:19 Urine Protein Negative mg/dL (NEGATIVE) 09/12/18 19:19 Urine Glucose (UA) Negative mg/dL (NEGATIVE) 09/12/18 19:19 Urine Ketones Negative mg/dL (NEGATIVE) 09/12/18 19:19 Urine Blood Negative (NEGATIVE) 09/12/18 19:19 Urine Nitrate Negative (NEGATIVE) 09/12/18 19:19 Urine Bilirubin Negative (NEGATIVE) 09/12/18 19:19 Urine Urobilinogen 0.2-1.0 mg/dL (0.2-1.0) 09/12/18 19:19 Ur Leukocyte Esterase Negative Drake/uL (Negative) 09/12/18 19:19 Urine RBC (Auto) 3 /hpf (0-3) 09/12/18 19:19 Urine Microscopic WBC 2 /hpf (0-5) 09/12/18 19:19 Ur Squamous Epith Cells 1 /hpf (0-5) 09/12/18 19:19 Influenza Typ A,B (EIA) Negative for flu a/b (NEGATIVE) 09/12/18 16:00 Ur L.pneumophila Ag Negative (NEGATIVE) 09/13/18 14:40 Mycoplasma pneumon IgM Negative (NEGATIVE) 09/13/18 14:40 - Date & Time of H&P Date of H&P: 09/13/18 Time of H&P: 09:50 Discharge Exam - Head Exam Head Exam: NORMAL INSPECTION - Eye Exam Eye Exam: PERRL - ENT Exam ENT Exam: Normal Exam - Neck Exam Neck exam: Normal Inspection - Respiratory Exam Respiratory Exam: Rhonchi (b/l), Wheezes - Cardiovascular Exam Cardiovascular Exam: REGULAR RHYTHM - GI/Abdominal Exam GI & Abdominal Exam: Soft Additional comments: colostomy bag in place - Extremities Exam Additional comments: Previous healed scar on L hip, R-L knee - Neurological Exam Neurological exam: Alert, Oriented x3 - Psychiatric Exam Psychiatric exam: Normal Mood - Skin Skin Exam: Warm Discharge Plan - Discharge Medications Prescriptions: levoFLOXacin 500 mg in D5W [Levaquin 500MG] 500 mg IVPB DAILY #5 bag - Follow Up Plan Condition: STABLE Disposition: TRANSF TO SNF Instructions: Pneumonia, Adult (DC) Referrals: Noel Jamison MD [Staff Provider] -
--- NOTE | 2018-09-18 11:41 | NM ---
Date of service: 09/15/2018 PROCEDURE: Whole Body Bone Scan HISTORY: heterogenous sclerosis thoracic vertebra/ per ct s COMPARISON: 04/18/2018 CT abdomen and pelvis. 09/14/2018 CT thorax. Summary of findings on the comparison examination: Compression fractures of T8, T10 and T12 vertebrae. Several areas of heterogeneous sclerosis in thoracic vertebrae. TECHNIQUE: Following administration of 26.7 miCu of Tc MDP multiplanar whole body images were obtained. FINDINGS: Evidence for bony metastatic disease: None. Degenerative uptake: Bilateral wrists. Physiologic uptake: Normal physiologic activity in the kidneys. Other findings: Scintigraphic findings consistent with bilateral knee replacement. Foci of increased uptake mid lower thoracic spine consistent with findings on recent CT scan. IMPRESSION: Foci of increased uptake lower thoracic spine consistent with findings on recent CT scan. No evidence of osseous metastatic disease detected in the remainder of the axial and appendicular skeleton. Degenerative changes both hands and wrists.
--- NOTE | 2018-09-22 13:50 | PQF ---
PROVIDER RESPONSE TEXT: Pneumonia ruled out. REVIEWER QUERY TEXT: Pneumonia Specificity COULD YOU PLEASE CLARIFY IF PNEUMONIA WAS RULED IN OR OUT? Pneumonia is documented in the Medical Record. Please specify the type of pneumonia and the causative organism (includes probable or suspected) Such as: Type: -- Aspiration pneumonia (please also specify the aspirate) - (please specify cause) - Please indicate if the aspiration is postprocedure -- Bacterial (please document suspected or probable organism) -- Bronchopneumonia (please document suspected or probable organism) -- Interstitial pneumonia -- Organizing pneumonia / BOOP -- Pneumonia with influenza, abril flu, or H1N1 flu -- RSV -- Tuberculosis, pulmonary -- Viral -- Other, please specify The patient's Clinical Indicators include: EMERGENCY ROOM DOCUMENTS : CLINCIAL IMPRESSION PNEUMONIA. CT CHEST LUNG NO PULMONARY INFILTRATES / SEE OTHER CT FINDINGS. CHEST X-RAY IMPRESSION: NO ACUTE INFILTRATE. Query created by: Sravani Hansen on 09/18/2018 11:45 AM Electronically signed by: Noel Jamison MD 09/22/2018 1:47 PM
== END 2018-09-15 17:30 | DRG 192 ==
LOC: H.ER 14:57 → H.ERHOLD 20:34 → H.TEL 09-13 08:27
PROVIDERS: ADMIT Internal Medicine Pulmonary Disease; ATTEND Internal Medicine Pulmonary Disease
DX: J44.1 Chronic obstructive pulmonary disease with (acute) exacerbation (principal); J84.10 Pulmonary fibrosis, unspecified; J44.0 Chronic obstructive pulmonary disease with (acute) lower respiratory infection; Z93.3 Colostomy status; R11.0 Nausea; R53.1 Weakness; R51 Headache; M06.9 Rheumatoid arthritis, unspecified; R09.81 Nasal congestion; J20.9 Acute bronchitis, unspecified; F41.9 Anxiety disorder, unspecified; M81.0 Age-related osteoporosis without current pathological fracture; Z87.01 Personal history of pneumonia (recurrent); Z96.642 Presence of left artificial hip joint; K52.9 Noninfective gastroenteritis and colitis, unspecified; M19.90 Unspecified osteoarthritis, unspecified site

== ENCOUNTER 2018-09-15 15:10 | Inpatient (IN) | payer OTHER, MEDICARE ==
[2018-09-15 18:00] VITALS: BMI 15.1
[2018-09-15] MEDS ORDERED: Promethazine/Cod 6.25mg-10mg/5ml Syr UD PO PRN (18:18)
[2018-09-15] MEDS: guaiFENesin 600 mg ER Tab PO SCH (21:49)
[2018-09-16] MEDS: Albuterol-Ipratrop 3 mg / 0.5 (3 ml) UD INH SCH ×7 (00:20→23:48)
[2018-09-16] MEDS: MethylPREDNISolone 40 mg Vial IVP SCH ×3 (00:50→16:10)
[2018-09-16] MEDS: guaiFENesin 600 mg ER Tab PO SCH ×2 (08:59→21:38)
[2018-09-16] MEDS: Multivitamin With Minerals Tab PO SCH (08:59)
[2018-09-16] MEDS ORDERED: levoFLOXacin 500 mg in D5W 500 MG/100 ML BAG IVPB SCH (09:00)
--- NOTE | 2018-09-16 15:45 | CP.PCM.HP ---
History of Present Illness - History of Present Illness History of Present Illness: 83 y/o F, PMHx: R/A, Ulcerative colitis, Colostomy, O/A, Acute Bronchitis, COPD. Pt was admitted 0n 09/12/18 to [facility], with primary Dx of PNA, COPD Exacerbation, transferred on 09/15/18 from telemetry unit to TCU floor to continue abx course. Present on Admission - Present on Admission Any Indicators Present on Admission: No Review of Systems - Constitutional Constitutional: Weakness - EENT Eyes: Other (negative) Ears: Other (negative) Nose/Mouth/Throat: Other (negative) - Cardiovascular Cardiovascular: Other (negative) - Respiratory Respiratory: Cough, Chest Congestion, Other (decreased breath sound) - Gastrointestinal Gastrointestinal: Other (negative) - Genitourinary Genitourinary: Other (negative) - Musculoskeletal Musculoskeletal: Arthralgias, Other (hands deformity 2nd to R/A) - Integumentary Integumentary: Other (Scars from old surgeries) - Neurological Neurological: Weakness - Psychiatric Psychiatric: Anxiety - Endocrine Endocrine: Other (negative) - Hematologic/Lymphatic Hematologic: Other (negative) Past Patient History - Past Medical History & Family History Past Medical History?: Yes Pertinent Family History: Unknown - Past Social History Smoking Status: Former Smoker Alcohol: None Drugs: Denies Home Situation {Lives}: With Family - CARDIAC Hx Cardiac Disorders: No - PULMONARY Hx Respiratory Disorders: Yes Hx Pneumonia: Yes - NEUROLOGICAL Hx Neurological Disorder: No - HEENT Hx HEENT Problems: No Other/Comment: Needs reading glasses - RENAL Hx Chronic Kidney Disease: No - ENDOCRINE/METABOLIC Hx Endocrine Disorders: No - HEMATOLOGICAL/ONCOLOGICAL Hx AIDS: No Hx Human Immunodeficiency Virus (HIV): No - INTEGUMENTARY Hx Dermatological Problems: No - MUSCULOSKELETAL/RHEUMATOLOGICAL Hx Falls: No - GASTROINTESTINAL Hx Gastrointestinal Disorders: Yes Hx Colitis: Yes Hx Colostomy: Yes - GENITOURINARY/GYNECOLOGICAL Hx Genitourinary Disorders: No - PSYCHIATRIC Hx Substance Use: No - SURGICAL HISTORY Hx Surgeries: Yes Hx Orthopedic Surgery: Yes (BILATERAL KNEES, LT HIP REPLACEMENT) Other/Comment: right hip sx with pin, Colostomy - ANESTHESIA Hx Anesthesia: Yes Hx Anesthesia Reactions: No Hx Malignant Hyperthermia: No Meds Allergies/Adverse Reactions: Allergies Allergy/AdvReac Type Severity Reaction Status Date / Time celecoxib [From Celebrex] Allergy RASH Verified 09/12/18 14:58 infliximab [From Remicade] Allergy RASH Verified 09/12/18 14:58 mesalamine Allergy RASH Verified 09/12/18 14:58 Penicillins Allergy RASH Verified 09/12/18 14:58 Sulfa (Sulfonamide Allergy RASH Verified 09/12/18 14:58 Antibiotics) Physical Exam - Constitutional Appears: No Acute Distress - Head Exam Head Exam: NORMAL INSPECTION - Eye Exam Eye Exam: PERRL - ENT Exam ENT Exam: Normal Exam - Neck Exam Neck exam: Positive for: Normal Inspection - Respiratory Exam Respiratory Exam: Decreased Breath Sounds (b/l) - Cardiovascular Exam Cardiovascular Exam: REGULAR RHYTHM - GI/Abdominal Exam GI & Abdominal Exam: Soft Additional comments: Colostomy bag. - Extremities Exam Additional comments: Hands severely deformed 2nd to R/A. Healed scars from previous surgery. - Neurological Exam Neurological exam: Alert, Oriented x3 - Psychiatric Exam Psychiatric exam: Normal Mood - Skin Skin Exam: Dry, Warm Results - Vital Signs Recent Vital Signs: Last Vital Signs Temp 97.8 F 09/16/18 10:09 Pulse 90 09/16/18 10:09 Resp 20 09/16/18 10:09 BP 105/58 L 09/16/18 10:09 Pulse Ox 94 L 09/16/18 10:09 reviewed TarasPDaisha Assessment & Plan (1) Acute bronchitis Status: Acute Priority: High (2) COPD exacerbation Status: Acute Priority: High (3) Weakness Status: Acute Priority: Medium (4) Colostomy status Status: Chronic Priority: High (5) RA (rheumatoid arthritis) Status: Chronic Priority: High - Assessment and Plan (Free Text) Plan: Continue O2 NC, Levaquin, Duoneb, Solu-Medrol, Promethazine with Co and rest of Tx. PT/OT eval. - Date & Time Date: 09/16/18 Time: 15:00
[2018-09-16] MEDS ORDERED: Patient's Own Med (Levofloxacin 500 Mg In D5w [Levaquin 500mg] 500 MG) IVPB SCH (16:00)
[2018-09-16] MEDS: levoFLOXacin 500 mg in D5W 500 MG/100 ML BAG IVPB SCH (16:08)
[2018-09-17] MEDS: MethylPREDNISolone 40 mg Vial IVP SCH ×4 (00:07→21:19)
[2018-09-17] MEDS: Albuterol-Ipratrop 3 mg / 0.5 (3 ml) UD INH SCH ×5 (05:29→19:14)
[2018-09-17] MEDS: guaiFENesin 600 mg ER Tab PO SCH ×2 (08:41→23:51)
[2018-09-17] MEDS: Multivitamin With Minerals Tab PO SCH (08:42)
[2018-09-17] MEDS: Benzocaine/Menthol (Cepacol) Lozenge PO PRN (08:43)
[2018-09-17] MEDS: levoFLOXacin 500 mg in D5W 500 MG/100 ML BAG IVPB SCH (17:10)
[2018-09-17] MEDS ORDERED: MethylPREDNISolone 40 mg Vial IVP SCH (17:30)
[2018-09-18] MEDS: Albuterol-Ipratrop 3 mg / 0.5 (3 ml) UD INH SCH ×6 (00:08→19:14)
[2018-09-18] MEDS: guaiFENesin 600 mg ER Tab PO SCH ×2 (08:34→22:03)
[2018-09-18] MEDS: Multivitamin With Minerals Tab PO SCH (08:35)
[2018-09-18] MEDS: MethylPREDNISolone 40 mg Vial IVP SCH (08:35)
[2018-09-18] MEDS: Benzocaine/Menthol (Cepacol) Lozenge PO PRN (08:35)
--- NOTE | 2018-09-18 14:47 | CP.PCM.PN ---
Subjective - Date & Time of Evaluation Date of Evaluation: 09/18/18 Time of Evaluation: 12:10 - Subjective Subjective: F/U Acute Bronchitis, COPD Exacerbation. No A/D, no CP, no SOB. Objective - Vital Signs/Intake and Output Vital Signs (last 24 hours): Temp Pulse Resp BP Pulse Ox 97.9 F 82 20 135/67 96 09/18/18 07:59 09/18/18 07:59 09/18/18 07:59 09/18/18 07:59 09/18/18 07:59 - Medications Medications: Current Medications Acetaminophen (Tylenol 325mg Tab) 650 mg PO Q6 PRN PRN Reason: Pain, Mild (1-3) Albuterol/Ipratropium (Duoneb 3 Mg/0.5 Mg (3 Ml) Ud) 3 ml INH RQ4 [facility] Last Admin: 09/18/18 11:47 Dose: Not Given Benzocaine/Menthol (Cepacol Sore Throat) 1 keena PO Q2 PRN PRN Reason: Sore Throat Last Admin: 09/18/18 08:35 Dose: 1 keena Fluticasone Propionate (Flonase) 1 spr YESENIA BID [facility] Last Admin: 09/18/18 08:34 Dose: 1 spr Guaifenesin (Mucinex La) 600 mg PO Q12 [facility] Last Admin: 09/18/18 08:34 Dose: 600 mg Levofloxacin/Dextrose (Levaquin 500mg) 500 mg in 100 mls @ 100 mls/hr IVPB DAILY@1700 [facility] Last Admin: 09/17/18 17:10 Dose: 100 mls/hr Methylprednisolone (Solu-Medrol) 30 mg IVP Q12 [facility] Last Admin: 09/18/18 08:35 Dose: 30 mg Multivitamins/Minerals (Therapeutic-M Tab) 1 tab PO DAILY [facility] Last Admin: 09/18/18 08:35 Dose: 1 tab Promethazine HCl/Codeine (Phenergan/Codeine Oral Syrup) 5 ml PO Q6 PRN PRN Reason: Cough - Constitutional Appears: No Acute Distress - Head Exam Head Exam: NORMAL INSPECTION - Eye Exam Eye Exam: PERRL - ENT Exam ENT Exam: Normal Exam - Neck Exam Neck Exam: Normal Inspection - Respiratory Exam Respiratory Exam: Decreased Breath Sounds (b/l), Rhonchi (b/l) - Cardiovascular Exam Cardiovascular Exam: REGULAR RHYTHM - GI/Abdominal Exam GI & Abdominal Exam: Soft Additional comments: Colostomy bag in place - Extremities Exam Additional comments: Healed scar from previous surgery of L hip, R-L knee - Neurological Exam Neurological Exam: Alert, Oriented x3 - Psychiatric Exam Psychiatric exam: Normal Mood - Skin Skin Exam: Warm Assessment and Plan (1) Acute bronchitis Status: Acute (2) COPD exacerbation Status: Acute (3) Weakness Status: Acute (4) Colostomy status Status: Chronic (5) RA (rheumatoid arthritis) Status: Chronic - Assessment and Plan (Free Text) Plan: Taper Steroids, Blood work and CXR today
--- NOTE | 2018-09-18 16:03 | RAD ---
Date of service: 09/18/2018 HISTORY: follow up COMPARISON: 09/12/2018 TECHNIQUE: Chest PA and lateral FINDINGS: LUNGS: Hyperinflation, manifestations of COPD. No active pulmonary disease. PLEURA: No significant pleural effusion identified. No pneumothorax apparent. CARDIOVASCULAR: No aortic atherosclerotic calcification present. Normal cardiac size. No pulmonary vascular congestion. OSSEOUS STRUCTURES: Diffuse osteopenia. Evidence of multiple mid and lower thoracic vertebral body wedge deformities. VISUALIZED UPPER ABDOMEN: Normal. OTHER FINDINGS: None. IMPRESSION: No active disease. No significant interval change compared to the prior examination(s).
[2018-09-18] MEDS: levoFLOXacin 500 mg in D5W 500 MG/100 ML BAG IVPB SCH (16:13)
[2018-09-19] MEDS: Albuterol-Ipratrop 3 mg / 0.5 (3 ml) UD INH SCH ×7 (00:23→23:48)
[2018-09-19 05:46] LABS: HEMOGLOBIN 12.3 g/dL (12.0-16.0); MEAN CELL VOLUME 95.4 fl (81.0-99.0); MEAN CORPUSCULAR HEMOGLOBIN 30.8 pg (27.0-31.0); MEAN CORPUSCULAR HGB CONC 32.3 g/dL (33.0-37.0); RBC 4.01 Mil/uL (3.80-5.20); RED CELL DISTRIBUTION WIDTH 13.3 % (11.5-14.5); WHITE BLOOD COUNT 6.9 K/uL (4.8-10.8)
[2018-09-19 05:58] LABS: BLOOD UREA NITROGEN 19 mg/dl (7-17); CALCIUM 8.6 mg/dL (8.4-10.2); GFR NON-AFRICAN AMERICAN > 60
[2018-09-19] MEDS: guaiFENesin 600 mg ER Tab PO SCH ×2 (09:32→21:45)
[2018-09-19] MEDS: MethylPREDNISolone 40 mg Vial IVP SCH (09:32)
[2018-09-19] MEDS: Multivitamin With Minerals Tab PO SCH (09:33)
[2018-09-19 09:41] LABS: EOS # 0.1 K/uL (0.0-0.7); EOS % 1.3 % (0.0-4.0); HEMOGLOBIN 12.8 g/dL (12.0-16.0); LYMPH # 1.3 K/uL (1.0-4.3); LYMPH % 18.3 % (20.0-40.0); MEAN CELL VOLUME 94.8 fl (81.0-99.0); MEAN CORPUSCULAR HEMOGLOBIN 31.1 pg (27.0-31.0); MEAN CORPUSCULAR HGB CONC 32.9 g/dL (33.0-37.0); MEAN PLATELET VOLUME 7.4 fl (7.2-11.7); MONO # 0.7 K/uL (0.0-0.8); MONO % 9.5 % (0.0-10.0); NEUT # 4.8 K/uL (1.8-7.0); NEUT % 70.9 % (50.0-75.0); NRBC % 0.4 % (0.0-0.0); RBC 4.09 Mil/uL (3.80-5.20); RED CELL DISTRIBUTION WIDTH 13.1 % (11.5-14.5); WHITE BLOOD COUNT 6.8 K/uL (4.8-10.8)
[2018-09-19 09:51] LABS: ALB/GLOB RATIO 0.9 (1.0-2.1); ALT/SGPT 28 U/L (9-52); AST/SGOT 25 U/L (14-36); BLOOD UREA NITROGEN 18 mg/dl (7-17); CALCIUM 8.8 mg/dL (8.4-10.2); GFR NON-AFRICAN AMERICAN > 60
--- NOTE | 2018-09-19 13:46 | CP.PCM.PN ---
Subjective - Date & Time of Evaluation Date of Evaluation: 09/19/18 Time of Evaluation: 13:30 - Subjective Subjective: F/U Acute Bronchitis No SOB, no cough, no chest congestion, c/o of nose congestion. Objective - Vital Signs/Intake and Output Vital Signs (last 24 hours): Temp Pulse Resp BP Pulse Ox 97.9 F 82 20 120/67 98 09/19/18 08:20 09/19/18 08:20 09/19/18 08:20 09/19/18 08:20 09/19/18 08:20 - Medications Medications: Current Medications Acetaminophen (Tylenol 325mg Tab) 650 mg PO Q6 PRN PRN Reason: Pain, Mild (1-3) Albuterol/Ipratropium (Duoneb 3 Mg/0.5 Mg (3 Ml) Ud) 3 ml INH RQ4 [facility] Last Admin: 09/19/18 11:08 Dose: Not Given Benzocaine/Menthol (Cepacol Sore Throat) 1 keena PO Q2 PRN PRN Reason: Sore Throat Last Admin: 09/18/18 08:35 Dose: 1 keena Fluticasone Propionate (Flonase) 1 spr YESENIA BID [facility] Last Admin: 09/19/18 09:32 Dose: 1 spr Guaifenesin (Mucinex La) 600 mg PO Q12 [facility] Last Admin: 09/19/18 09:32 Dose: 600 mg Methylprednisolone (Solu-Medrol) 30 mg IVP DAILY [facility] Last Admin: 09/19/18 09:32 Dose: 30 mg Multivitamins/Minerals (Therapeutic-M Tab) 1 tab PO DAILY [facility] Last Admin: 09/19/18 09:33 Dose: 1 tab Promethazine HCl/Codeine (Phenergan/Codeine Oral Syrup) 5 ml PO Q6 PRN PRN Reason: Cough - Labs Labs: 09/19/18 08:30 09/19/18 08:30 - Constitutional Appears: No Acute Distress - Head Exam Head Exam: NORMAL INSPECTION - Eye Exam Eye Exam: PERRL - ENT Exam Additional comments: Nose congestion - Neck Exam Neck Exam: Normal Inspection - Respiratory Exam Respiratory Exam: Decreased Breath Sounds (at bases), Rhonchi (b/l) - Cardiovascular Exam Cardiovascular Exam: REGULAR RHYTHM - GI/Abdominal Exam GI & Abdominal Exam: Soft, Normal Bowel Sounds Additional comments: Colostomy bag in place - Extremities Exam Additional comments: Healed scars L hip, R-L knee from old surgery. - Neurological Exam Neurological Exam: Alert, Oriented x3 - Psychiatric Exam Psychiatric exam: Normal Mood - Skin Skin Exam: Warm Assessment and Plan (1) Acute bronchitis Status: Acute (2) COPD exacerbation Status: Acute (3) Weakness Status: Acute (4) Staphylococcus aureus infection, multiple-resistant (MRSA) Status: Acute (5) Colostomy status Status: Chronic (6) RA (rheumatoid arthritis) Status: Chronic - Assessment and Plan (Free Text) Plan: Pt had Vanco today, continue solu-Medrol, Mucinex, Flonase and rest of tx.
[2018-09-19 14:29] LABS: SQUAMOUS EPITHIAL < 1 /hpf (0-5); URINE BILIRUBIN NEGATIVE (NEGATIVE); URINE BLOOD NEGATIVE (NEGATIVE); URINE CLARITY CLEAR (Clear); URINE COLOR YELLOW (YELLOW); URINE GLUCOSE (UA) NEG (NEGATIVE); URINE HYALINE CAST 0-2 /hpf (0-2); URINE LEUKOCYTE ESTERASE NEG Leu/uL (Negative); URINE PROTEIN NEGATIVE (NEGATIVE); URINE UROBILINOGEN 0.2-1.0 mg/dL (0.2-1.0)
--- NOTE | 2018-09-19 19:36 | CP.PCM.PN ---
Subjective - Date & Time of Evaluation Date of Evaluation: 09/19/18 Time of Evaluation: 19:30 - Subjective Subjective: I D NOTE HAVE GIVEN 1 DSE VANCOMYCIN WILL RX c zyvox Objective - Vital Signs/Intake and Output Vital Signs (last 24 hours): Temp Pulse Resp BP Pulse Ox 98.3 F 98 H 20 104/64 96 09/19/18 16:24 09/19/18 16:24 09/19/18 16:24 09/19/18 16:24 09/19/18 16:24 - Medications Medications: Current Medications Acetaminophen (Tylenol 325mg Tab) 650 mg PO Q6 PRN PRN Reason: Pain, Mild (1-3) Albuterol/Ipratropium (Duoneb 3 Mg/0.5 Mg (3 Ml) Ud) 3 ml INH RQ4 [facility] Last Admin: 09/19/18 16:01 Dose: Not Given Benzocaine/Menthol (Cepacol Sore Throat) 1 keena PO Q2 PRN PRN Reason: Sore Throat Last Admin: 09/18/18 08:35 Dose: 1 keena Fluticasone Propionate (Flonase) 1 spr YESENIA BID [facility] Last Admin: 09/19/18 16:39 Dose: 1 spr Guaifenesin (Mucinex La) 600 mg PO Q12 [facility] Last Admin: 09/19/18 09:32 Dose: 600 mg Linezolid (Zyvox) 600 mg PO Q12 [facility]; Protocol Loratadine (Claritin) 10 mg PO DAILY [facility] Lorazepam (Ativan) 0.5 mg PO HS PRN PRN Reason: Anxiety Methylprednisolone (Solu-Medrol) 30 mg IVP DAILY [facility] Last Admin: 09/19/18 09:32 Dose: 30 mg Multivitamins/Minerals (Therapeutic-M Tab) 1 tab PO DAILY [facility] Last Admin: 09/19/18 09:33 Dose: 1 tab Promethazine HCl/Codeine (Phenergan/Codeine Oral Syrup) 5 ml PO Q6 PRN PRN Reason: Cough - Labs Labs: 09/19/18 08:30 09/19/18 08:30
[2018-09-20] MEDS: Albuterol-Ipratrop 3 mg / 0.5 (3 ml) UD INH SCH ×6 (04:24→23:17)
[2018-09-20] MEDS: guaiFENesin 600 mg ER Tab PO SCH ×2 (09:33→21:13)
[2018-09-20] MEDS: Multivitamin With Minerals Tab PO SCH (09:33)
[2018-09-20] MEDS: MethylPREDNISolone 40 mg Vial IVP SCH (09:33)
--- NOTE | 2018-09-20 14:47 | CP.PCM.PN ---
Subjective - Date & Time of Evaluation Date of Evaluation: 09/20/18 Time of Evaluation: 12:00 - Subjective Subjective: F/U Acute Bronchitis. Pt awake, no A/D, no SOB, no cough, no chest congestion. Objective - Vital Signs/Intake and Output Vital Signs (last 24 hours): Temp Pulse Resp BP Pulse Ox 97.5 F L 90 20 125/65 98 09/20/18 08:04 09/20/18 13:07 09/20/18 08:04 09/20/18 08:04 09/20/18 13:07 - Medications Medications: Current Medications Acetaminophen (Tylenol 325mg Tab) 650 mg PO Q6 PRN PRN Reason: Pain, Mild (1-3) Albuterol/Ipratropium (Duoneb 3 Mg/0.5 Mg (3 Ml) Ud) 3 ml INH RQ4 [facility] Last Admin: 09/20/18 11:14 Dose: 3 ml Benzocaine/Menthol (Cepacol Sore Throat) 1 keena PO Q2 PRN PRN Reason: Sore Throat Last Admin: 09/18/18 08:35 Dose: 1 keena Fluticasone Propionate (Flonase) 1 spr YESENIA BID [facility] Last Admin: 09/20/18 09:33 Dose: 1 spr Guaifenesin (Mucinex La) 600 mg PO Q12 [facility] Last Admin: 09/20/18 09:33 Dose: 600 mg Linezolid (Zyvox) 600 mg PO Q12 [facility]; Protocol Last Admin: 09/20/18 09:33 Dose: 600 mg Loratadine (Claritin) 10 mg PO DAILY [facility] Last Admin: 09/20/18 09:33 Dose: 10 mg Lorazepam (Ativan) 0.5 mg PO HS PRN PRN Reason: Anxiety Multivitamins/Minerals (Therapeutic-M Tab) 1 tab PO DAILY [facility] Last Admin: 09/20/18 09:33 Dose: 1 tab Prednisone (Prednisone Tab) 20 mg PO DAILY [facility] Promethazine HCl/Codeine (Phenergan/Codeine Oral Syrup) 5 ml PO Q6 PRN PRN Reason: Cough - Labs Labs: 09/19/18 08:30 09/19/18 08:30 - Constitutional Appears: No Acute Distress - Head Exam Head Exam: NORMAL INSPECTION - Eye Exam Eye Exam: PERRL - ENT Exam ENT Exam: Normal Exam - Neck Exam Neck Exam: Normal Inspection - Respiratory Exam Respiratory Exam: Decreased Breath Sounds (at bases) - Cardiovascular Exam Cardiovascular Exam: REGULAR RHYTHM - GI/Abdominal Exam GI & Abdominal Exam: Soft Additional comments: Colostomy bag in place - Extremities Exam Additional comments: Healed scar from previous surgery on L hip, R-L knee - Neurological Exam Neurological Exam: Alert, Oriented x3 - Psychiatric Exam Psychiatric exam: Normal Mood - Skin Skin Exam: Warm Assessment and Plan (1) Acute bronchitis Status: Acute (2) COPD exacerbation Status: Acute (3) Weakness Status: Acute (4) Staphylococcus aureus infection, multiple-resistant (MRSA) Assessment & Plan: Sputum. Status: Acute (5) Colostomy status Status: Chronic (6) RA (rheumatoid arthritis) Status: Chronic - Assessment and Plan (Free Text) Plan: Continue Xyvox IV for 2 more days and rest of tx. f/u Nasal screen.
--- NOTE | 2018-09-20 16:06 | CP.PCM.PN ---
Subjective - Date & Time of Evaluation Date of Evaluation: 09/20/18 Time of Evaluation: 16:00 - Subjective Subjective: I D NOTE PATIENT EXAMINED , ENR REVIEWED MRSA IN SPUTUM DISCUSSED c DOMINGA POE DO MRSA SCREEN. BACTROBAN IN NARES AFTER CULTURE TREAT C ORAL ZYVOX FOR AT LEAST 2 WEEKS SHOULD RECEIVE 48 HRS PRIOR TO DISCHARGE Objective - Vital Signs/Intake and Output Vital Signs (last 24 hours): Temp Pulse Resp BP Pulse Ox 97.5 F L 90 20 125/65 98 09/20/18 08:04 09/20/18 13:07 09/20/18 08:04 09/20/18 08:04 09/20/18 13:07 - Medications Medications: Current Medications Acetaminophen (Tylenol 325mg Tab) 650 mg PO Q6 PRN PRN Reason: Pain, Mild (1-3) Albuterol/Ipratropium (Duoneb 3 Mg/0.5 Mg (3 Ml) Ud) 3 ml INH RQ4 [facility] Last Admin: 09/20/18 15:16 Dose: 3 ml Benzocaine/Menthol (Cepacol Sore Throat) 1 keena PO Q2 PRN PRN Reason: Sore Throat Last Admin: 09/18/18 08:35 Dose: 1 keena Fluticasone Propionate (Flonase) 1 spr YESENIA BID [facility] Last Admin: 09/20/18 09:33 Dose: 1 spr Guaifenesin (Mucinex La) 600 mg PO Q12 [facility] Last Admin: 09/20/18 09:33 Dose: 600 mg Linezolid (Zyvox) 600 mg PO Q12 [facility]; Protocol Last Admin: 09/20/18 09:33 Dose: 600 mg Loratadine (Claritin) 10 mg PO DAILY [facility] Last Admin: 09/20/18 09:33 Dose: 10 mg Lorazepam (Ativan) 0.5 mg PO HS PRN PRN Reason: Anxiety Multivitamins/Minerals (Therapeutic-M Tab) 1 tab PO DAILY [facility] Last Admin: 09/20/18 09:33 Dose: 1 tab Prednisone (Prednisone Tab) 20 mg PO DAILY [facility] Promethazine HCl/Codeine (Phenergan/Codeine Oral Syrup) 5 ml PO Q6 PRN PRN Reason: Cough - Labs Labs: 09/19/18 08:30 09/19/18 08:30
[2018-09-20] MEDS: Mupirocin 2% Oint 1GM UD TOP SCH (18:03)
--- NOTE | 2018-09-21 03:41 | CON ---
DATE: 09/20/2018 INFECTIOUS DISEASE CONSULT HISTORY OF PRESENT ILLNESS: The patient is an 83-year-old female with a past medical history of rheumatoid arthritis, ulcerative colitis, colostomy, acute bronchitis, COPD. The patient was admitted on 09/12/2018 which is the beginning of the last week with primary diagnosis of COPD exacerbation. She was transferred on 09/15/2018 from telemetry unit to the TCU floor to continue antibiotic course. The patient is alert, cooperative, and oriented to time and place. She is quite ischemic. PHYSICAL EXAMINATION: HEENT: Within normal limits. Eyes PERRLA. ENT within normal limits. NECK: Supple. RESPIRATORY: She has moderately decreased breath sounds on both sides. HEART: Regular sinus rhythm. ABDOMEN: Soft. Positive bowel sounds. EXTREMITIES: Hands are severely deformed secondary to RA. Healed scars from previous surgery. The patient is being seen by Infectious Disease for MRSA in the sputum. The patient on discussing how she feels mentions that before she came to the hospital and received respiratory antibiotics, she was coughing up, markedly had a bad cough and was coughing up thick viscous sputum. Presently, she still has some cough, but is not expectorating anything. LABORATORY DATA: Included the previously mentioned sputum culture with MRSA. WBC is 6.8, hemoglobin 12.8, platelets are 243. Chemistries, creatinine 0.8. GFR is greater than 60. Chest x-ray, no active disease. No significant interval change compared to the previous exam. At this point in time, I feel the patient should have nasal cultures for MRSA, Bactroban intranasally until the cultures prove to be negative. Treat with Zyvox for at least two weeks 600 mg p.o. b.i.d. I would like her to stay in the hospital for a total of 48 hours prior to being discharged on Zyvox. Roe Brooks MD
[2018-09-21] MEDS: Albuterol-Ipratrop 3 mg / 0.5 (3 ml) UD INH SCH ×3 (03:56→11:49)
[2018-09-21 08:12] VITALS: BP 120/60; PULSE 92; RESP 18; TEMP 97.8; O2SAT 97
[2018-09-21] MEDS: Multivitamin With Minerals Tab PO SCH (08:46)
[2018-09-21] MEDS: guaiFENesin 600 mg ER Tab PO SCH (08:46)
[2018-09-21] MEDS: Mupirocin 2% Oint 1GM UD TOP SCH (08:47)
[2018-09-21] MEDS ORDERED: Potassium Chloride 20 mEq ER Tab PO ONE (08:56)
--- NOTE | 2018-09-21 15:46 | CP.PCM.PN ---
Objective - Vital Signs/Intake and Output Vital Signs (last 24 hours): Temp Pulse Resp BP Pulse Ox 97.8 F 92 H 18 120/60 97 09/21/18 08:11 09/21/18 08:11 09/21/18 08:11 09/21/18 08:11 09/21/18 08:11 - Medications Medications: Current Medications Acetaminophen (Tylenol 325mg Tab) 650 mg PO Q6 PRN PRN Reason: Pain, Mild (1-3) Albuterol/Ipratropium (Duoneb 3 Mg/0.5 Mg (3 Ml) Ud) 3 ml INH RQ4 [facility] Last Admin: 09/21/18 11:49 Dose: 3 ml Benzocaine/Menthol (Cepacol Sore Throat) 1 keena PO Q2 PRN PRN Reason: Sore Throat Last Admin: 09/18/18 08:35 Dose: 1 keena Fluticasone Propionate (Flonase) 1 spr YESENIA BID [facility] Last Admin: 09/21/18 08:47 Dose: 1 spr Guaifenesin (Mucinex La) 600 mg PO Q12 [facility] Last Admin: 09/21/18 08:46 Dose: 600 mg Linezolid (Zyvox) 600 mg PO Q12 [facility]; Protocol Last Admin: 09/21/18 08:48 Dose: 600 mg Loratadine (Claritin) 10 mg PO DAILY [facility] Last Admin: 09/21/18 08:46 Dose: 10 mg Lorazepam (Ativan) 0.5 mg PO HS PRN PRN Reason: Anxiety Multivitamins/Minerals (Therapeutic-M Tab) 1 tab PO DAILY [facility] Last Admin: 09/21/18 08:46 Dose: 1 tab Mupirocin (Bactroban Ointment) 1 applic TOP BID [facility] Last Admin: 09/21/18 08:47 Dose: 1 applic Prednisone (Prednisone Tab) 20 mg PO DAILY [facility] Last Admin: 09/21/18 08:46 Dose: 20 mg Promethazine HCl/Codeine (Phenergan/Codeine Oral Syrup) 5 ml PO Q6 PRN PRN Reason: Cough - Labs Labs: 09/19/18 08:30 09/19/18 08:30 Assessment and Plan (1) Acute bronchitis Status: Acute (2) COPD exacerbation Status: Acute (3) Weakness Status: Acute (4) Staphylococcus aureus infection, multiple-resistant (MRSA) Status: Acute (5) Colostomy status Status: Chronic (6) RA (rheumatoid arthritis) Status: Chronic
--- NOTE | 2018-09-21 16:45 | CP.PCM.DIS ---
Provider - Provider Date of Admission: 09/15/18 18:01 Attending physician: Noel Jamison MD Consults: 09/15/18 18:35 Case Management Referral Routine Comment: Physician Instructions: Reason For Exam: Reason for Referral: Discharge Planning 09/19/18 10:57 Infectious Disease Consult Routine Comment: Consulting Provider: Roe Brooks Consulting Physician: Roe Brooks Reason for Consult: mrsa on the sputum Diagnosis - Discharge Diagnosis (1) Acute bronchitis Status: Acute Priority: High (2) COPD exacerbation Status: Acute Priority: High (3) Weakness Status: Acute Priority: Medium (4) Staphylococcus aureus infection, multiple-resistant (MRSA) Status: Acute (5) Colostomy status Status: Chronic Priority: High (6) RA (rheumatoid arthritis) Status: Chronic Priority: High Hospital Course - Lab Results Lab Results: Micro Results 09/19/18 14:00 Urine,Clean Catch Urine Culture - Final No Growth (<1,000 CFU/ML) 09/19/18 08:55 Blood Blood Culture - Preliminary NO GROWTH AFTER 48 HOURS 09/19/18 08:50 Blood Blood Culture - Preliminary NO GROWTH AFTER 48 HOURS Most Recent Lab Values WBC 6.8 K/uL (4.8-10.8) 09/19/18 08:30 RBC 4.09 Mil/uL (3.80-5.20) 09/19/18 08:30 Hgb 12.8 g/dL (12.0-16.0) 09/19/18 08:30 Hct 38.8 % (34.0-47.0) 09/19/18 08:30 MCV 94.8 fl (81.0-99.0) 09/19/18 08:30 MCH 31.1 pg (27.0-31.0) H 09/19/18 08:30 MCHC 32.9 g/dL (33.0-37.0) L 09/19/18 08:30 RDW 13.1 % (11.5-14.5) 09/19/18 08:30 Plt Count 243 K/uL (130-400) 09/19/18 08:30 MPV 7.4 fl (7.2-11.7) 09/19/18 08:30 Neut % (Auto) 70.9 % (50.0-75.0) 09/19/18 08:30 Lymph % (Auto) 18.3 % (20.0-40.0) L 09/19/18 08:30 Cass % (Auto) 9.5 % (0.0-10.0) 09/19/18 08:30 Eos % (Auto) 1.3 % (0.0-4.0) 09/19/18 08:30 Baso % (Auto) 0.0 % (0.0-2.0) 09/19/18 08:30 Neut # (Auto) 4.8 K/uL (1.8-7.0) 09/19/18 08:30 Lymph # (Auto) 1.3 K/uL (1.0-4.3) 09/19/18 08:30 Cass # (Auto) 0.7 K/uL (0.0-0.8) 09/19/18 08:30 Eos # (Auto) 0.1 K/uL (0.0-0.7) 09/19/18 08:30 Baso # (Auto) 0.0 K/uL (0.0-0.2) 09/19/18 08:30 Sodium 139 mmol/l (132-148) 09/19/18 08:30 Potassium 3.3 MMOL/L (3.6-5.0) L 09/19/18 08:30 Chloride 102 mmol/L (98-107) 09/19/18 08:30 Carbon Dioxide 30 mmol/L (22-30) 09/19/18 08:30 Anion Gap 10 (10-20) 09/19/18 08:30 BUN 18 mg/dl (7-17) H 09/19/18 08:30 Creatinine 0.8 mg/dl (0.7-1.2) 09/19/18 08:30 Est GFR ( Amer) > 60 09/19/18 08:30 Est GFR (Non-Af Amer) > 60 09/19/18 08:30 Random Glucose 88 mg/dL (65-105) 09/19/18 08:30 Calcium 8.8 mg/dL (8.4-10.2) 09/19/18 08:30 Magnesium 1.9 MG/DL (1.6-2.3) 09/19/18 08:30 Total Bilirubin 0.4 mg/dl (0.2-1.3) 09/19/18 08:30 AST 25 U/L (14-36) 09/19/18 08:30 ALT 28 U/L (9-52) 09/19/18 08:30 Alkaline Phosphatase 57 U/L (38-126) 09/19/18 08:30 Total Protein 6.3 G/DL (6.3-8.2) 09/19/18 08:30 Albumin 3.0 g/dL (3.5-5.0) L 09/19/18 08:30 Globulin 3.3 gm/dL (2.2-3.9) 09/19/18 08:30 Albumin/Globulin Ratio 0.9 (1.0-2.1) L 09/19/18 08:30 Urine Color Yellow (YELLOW) 09/19/18 14:00 Urine Clarity Clear (Clear) 09/19/18 14:00 Urine pH 6.0 (5.0-8.0) 09/19/18 14:00 Ur Specific Mercer 1.010 (1.003-1.030) 09/19/18 14:00 Urine Protein Negative mg/dL (NEGATIVE) 09/19/18 14:00 Urine Glucose (UA) Neg mg/dL (NEGATIVE) 09/19/18 14:00 Urine Ketones Negative mg/dL (NEGATIVE) 09/19/18 14:00 Urine Blood Negative (NEGATIVE) 09/19/18 14:00 Urine Nitrate Negative (NEGATIVE) 09/19/18 14:00 Urine Bilirubin Negative (NEGATIVE) 09/19/18 14:00 Urine Urobilinogen 0.2-1.0 mg/dL (0.2-1.0) 09/19/18 14:00 Ur Leukocyte Esterase Neg Drake/uL (Negative) 09/19/18 14:00 Urine RBC (Auto) 2 /hpf (0-3) 09/19/18 14:00 Urine Microscopic WBC 2 /hpf (0-5) 09/19/18 14:00 Ur Squamous Epith Cells < 1 /hpf (0-5) 09/19/18 14:00 Hyaline Casts 0-2 /hpf (0-2) 09/19/18 14:00 Discharge Exam - Head Exam Head Exam: NORMAL INSPECTION Discharge Plan - Follow Up Plan Condition: GOOD Disposition: HOME/ ROUTINE Instructions: Multidrug Resistant Organisms (DC), Colostomy Care
== END 2018-09-21 15:00 | disposition home health service (06) | DRG 202 ==
LOC: H.TCU 18:01
PROVIDERS: ADMIT Internal Medicine Pulmonary Disease; ATTEND Internal Medicine Pulmonary Disease
PROC: 3E03329 Introduction of Other Anti-infective into Peripheral Vein, Percutaneous Approach (ICD-10-PCS; principal; 2018-09-15)
PROC: F07Z9FZ Gait Training/Functional Ambulation Treatment using Assistive, Adaptive, Supportive or Protective Equipment (ICD-10-PCS; 2018-09-15)
PROC: F08Z4FZ Home Management Treatment using Assistive, Adaptive, Supportive or Protective Equipment (ICD-10-PCS; 2018-09-15)
PROC: F07M6FZ Therapeutic Exercise Treatment of Musculoskeletal System - Whole Body using Assistive, Adaptive, Supportive or Protective Equipment (ICD-10-PCS; 2018-09-15)
DX: J20.9 Acute bronchitis, unspecified (principal); J44.0 Chronic obstructive pulmonary disease with (acute) lower respiratory infection; K51.90 Ulcerative colitis, unspecified, without complications; J44.1 Chronic obstructive pulmonary disease with (acute) exacerbation; B95.61 Methicillin susceptible Staphylococcus aureus infection as the cause of diseases classified elsewhere; R53.1 Weakness; M06.9 Rheumatoid arthritis, unspecified; Z93.3 Colostomy status; Z96.642 Presence of left artificial hip joint; Z96.653 Presence of artificial knee joint, bilateral; Z87.01 Personal history of pneumonia (recurrent); Z87.891 Personal history of nicotine dependence; Z88.0 Allergy status to penicillin; Z88.2 Allergy status to sulfonamides

== ENCOUNTER 2018-10-09 20:36 | Emergency (ER) | payer MEDICARE ==
[2018-10-09 20:36] VITALS: BMI 15.1
--- NOTE | 2018-10-09 22:11 | ED PDOC ---
HPI: Back Time Seen by Provider: 10/09/18 20:50 Chief Complaint (Nursing): Back Pain Chief Complaint (Provider): Back Pain History Per: Patient History/Exam Limitations: no limitations Onset/Duration Of Symptoms: Days Current Symptoms Are (Timing): Still Present Additional Complaint(s): 83 y/o female brought in by daughter for evaluation of back pain. Patient reports she was recently admitted to this facility two weeks ago with a diagnosis of Bronchitis, COPD and MRSA. Today, patient is complaining of worsening back pain across the middle of her back associated with dizziness.. Patient notes of having finished her antibiotics given upon discharge two weeks ago. Daughter notes patient is experiencing similar symptoms to those of when she was admitted to this facility last year where she was found to have inflammation around the lungs from her Rheumatoid Arthritis. Otherwise, patient denies fever, rash and cough. also co headache, requesting head CT. pt accompanied by joe at bedside. PMD: none provided Past Medical History Reviewed: Historical Data, Nursing Documentation, Vital Signs Vital Signs: Last Vital Signs Temp 98.4 F 10/09/18 20:44 Pulse 105 H 10/09/18 20:44 Resp 20 10/09/18 20:44 BP 120/57 L 10/09/18 20:44 Pulse Ox 97 10/09/18 20:44 - Medical History PMH: Anxiety, Arthritis, Bronchitis, COPD, Pneumonia, Rheumatoid Arthritis Denies: HIV, Chronic Kidney Disease Other PMH: MRSA - Surgical History Surgical History: No Surg Hx - Family History Family History: States: Unknown Family Hx - Social History Current smoker - smoking cessation education provided: No Alcohol: None Drugs: Denies - Immunization History Hx Tetanus Toxoid Vaccination: No Hx Influenza Vaccination: Yes Hx Pneumococcal Vaccination: Yes - Home Medications Home Medications: Ambulatory Orders Medication Instructions Recorded Multivit-Min/Iron/Folic/Lutein 1 tab PO DAILY 04/18/18 [Centrum Silver Women Tablet] Acetaminophen [Tylenol 325mg tab] 650 mg PO Q6 PRN tab 09/15/18 Fluticasone Propionate [Flonase] 1 spr YESENIA BID bottle 09/15/18 Linezolid [Zyvox] 600 mg PO Q12 09/21/18 Loratadine [Claritin] 10 mg PO DAILY 09/21/18 Umeclidinium Brm/Vilanterol Tr 1 unit INH DAILY 09/21/18 [Anoro Ellipta 62.5-25 Mcg INH] predniSONE [predniSONE Tab] 5 mg PO DAILY 09/21/18 - Allergies Allergies/Adverse Reactions: Allergies Allergy/AdvReac Type Severity Reaction Status Date / Time celecoxib [From Celebrex] Allergy RASH Verified 10/09/18 20:44 infliximab [From Remicade] Allergy RASH Verified 10/09/18 20:44 mesalamine Allergy RASH Verified 10/09/18 20:44 Penicillins Allergy RASH Verified 10/09/18 20:44 Sulfa (Sulfonamide Allergy RASH Verified 10/09/18 20:44 Antibiotics) Review of Systems ROS Statement: Except As Marked, All Systems Reviewed And Found Negative Constitutional: Negative for: Fever Respiratory: Negative for: Cough Musculoskeletal: Positive for: Back Pain Skin: Negative for: Rash Neurological: Positive for: Dizziness Physical Exam - Reviewed Nursing Documentation Reviewed: Yes Vital Signs Reviewed: Yes - Physical Exam Appears: Positive for: No Acute Distress (resting comfiortably). Negative for: Well (thin elderly woman) Head Exam: Positive for: ATRAUMATIC, NORMOCEPHALIC Skin: Positive for: Warm, Dry Eye Exam: Positive for: Normal appearance ENT: Positive for: Normal ENT Inspection Neck: Positive for: Normal, Painless ROM Cardiovascular/Chest: Positive for: Regular Rate, Rhythm. Negative for: Murmur Respiratory: Positive for: Normal Breath Sounds. Negative for: Respiratory Distress Gastrointestinal/Abdominal: Positive for: Normal Exam, Soft, Other (colostomy bad noted to the right side, draining stool). Negative for: Tenderness Back: Positive for: Normal Inspection. Negative for: Vertebral Tenderness Extremity: Positive for: Normal ROM. Negative for: Deformity Neurological/Psych: Positive for: Awake, Alert, Oriented (x3), Gait (stable), fountain jerk II-XII (intact). Negative for: Lethargic, Motor/Sensory Deficits, Facial Droop - Laboratory Results Result Diagrams: 10/09/18 23:24 10/09/18 23:24 - ECG O2 Sat by Pulse Oximetry: 97 (RA) Pulse Ox Interpretation: Normal Medical Decision Making Medical Decision Making: Time: 2201 Plan: back pain rule out infection/pneumonia, electrolyte abnormality -- CMP -- Troponin I -- CBC with Differentials -- CXR Two Views -- Tylenol 650 mg PO [address] W/O Contrast Findings: There is normal configuration of sella turcica. There are no intra or extra- axial collections. There is no mass effect or midline shift. There is no evidence of hematoma formation. No hydrocephalus is present. The ventricles are symmetrical. No abnormal calcifications are present. There is diffuse age-appropriate cerebellar and cerebral atrophy with proportionally dilated ventricles and cortical sulci. There are bilateral periventricular and subcortical white matter hypolucencies compatible with mild chronic microvascular disease. Otherwise, no significant focal abnormalities are seen either in the posterior fossa or supratentorial compartment. 1.5 cm right maxillary sinus mucus retention cyst. IMPRESSION: 1. Age-appropriate cerebellar and cerebral atrophy. 2. Mild chronic microvascular disease. 3. No evidence of acute intracranial pathology. [address] W/O Contrast FINDINGS: Multifocal bronchiectatic changes more prominent in the right middle lobe. Prominent bronchiectatic changes in the lingula. Bilateral basilar subsegmental atelectatic pulmonary changes. Normal unenhanced main pulmonary artery and right and left pulmonary arteries. Normal bilateral peripheral pulmonary arteries. Normal thoracic aorta and visualized great vessels. There is no demonstrated aortic aneurysm. Normal heart and pericardium. Normal mediastinum. Normal hilar regions. Normal visualized trachea and thickened bronchi. Normal pleura. Normal chest wall structures. Moderate osteopenia. Moderate chronic compression deformities of the mid and lower thoracic vertebral bodies. Secondary increase in the degree of dorsal kyphosis. Scattered well-defined hypodense lesions of the liver with the largest measuring 1.8 cm. Fluid-filled distended stomach suggestive of gastroparesis. IMPRESSION: Bronchiectasis. Chronic bronchitis. Emphysema. Bronchiolitis. Basilar subsegmental atelectatic pulmonary changes. Osteopenia. Multifocal chronic compression deformities of the thoracic vertebral bodies with increased dorsal kyphosis. 0124 Noted hemoglobin is down to 10 from 12 at the beginning of September. pt is aware of anemia and need to follow up with pcp 0145 --Patient is sleeping comfortably with no distress throughout ER stay --All results of CT and labs are reviewed. Labs show slight anemia. --Patient is stable for discharge and reports daughter will come to pick her up. requesting to stay in the ER until her daughter can come get her. she is calm and comfotable, not requesting any pain meds. she is aware of results and will follow up with PCP in 1-2 days. Scribe Attestation: Documented by Sunday Cabrera, acting as a scribe forTin Grayson MD. Provider Scribe Attestation: All medical record entries made by the Scribe were at my direction and personally dictated by me. I have reviewed the chart and agree that the record accurately reflects my personal performance of the history, physical exam, medical decision making, and the department course for this patient. I have also personally directed, reviewed, and agree with the discharge instructions and disposition. Disposition - Clinical Impression Clinical Impression: Back pain, Atelectasis - Patient ED Disposition Is Patient to be Admitted: No Counseled Patient/Family Regarding: Studies Performed, Diagnosis, Need For Followup - Disposition Disposition: Routine/Home Disposition Time: 01:45 Condition: IMPROVED Additional Instructions: follow up with your primary doctor in 1-2 days return to the ED with any worsening or concerning symptoms Instructions: Upper Back Pain (DC) Forms: [employer] (Latvian)
[2018-10-09 23:36] LABS: BASO % 0.4 % (0.0-2.0); EOS # 0.2 K/uL (0.0-0.7); EOS % 2.7 % (0.0-4.0); LYMPH % 14.6 % (20.0-40.0); MEAN CELL VOLUME 94.2 fl (81.0-99.0); MEAN CORPUSCULAR HEMOGLOBIN 30.8 pg (27.0-31.0); MEAN CORPUSCULAR HGB CONC 32.7 g/dL (33.0-37.0); MEAN PLATELET VOLUME 8.9 fl (7.2-11.7); MONO # 1.1 K/uL (0.0-0.8); MONO % 16.9 % (0.0-10.0); NEUT # 4.3 K/uL (1.8-7.0); NEUT % 65.4 % (50.0-75.0); RBC 3.23 Mil/uL (3.80-5.20); RED CELL DISTRIBUTION WIDTH 13.7 % (11.5-14.5); WHITE BLOOD COUNT 6.5 K/uL (4.8-10.8)
[2018-10-09 23:52] LABS: ALB/GLOB RATIO 1.2 (1.0-2.1); ALBUMIN 3.6 g/dL (3.5-5.0); ALT/SGPT 27 U/L (9-52); AST/SGOT 27 U/L (14-36); BLOOD UREA NITROGEN 13 mg/dl (7-17); CALCIUM 9.7 mg/dL (8.4-10.2); GFR NON-AFRICAN AMERICAN > 60
[2018-10-10 07:00] VITALS: BP 123/89; PULSE 95; RESP 16; TEMP 98.1; O2SAT 100
--- NOTE | 2018-10-10 08:49 | RAD ---
Date of service: 10/09/2018 HISTORY: back pain COMPARISON: Chest radiographs 09/18/2018. TECHNIQUE: Chest PA and lateral views FINDINGS: LUNGS: No interval acute cardiopulmonary disease appreciable. COPD changes are reiterated manifest by hyperinflation and increased anteroposterior chest diameter once again. Fibrotic right perihilar changes versus minor fissure thickening again evident. PLEURA: No significant pleural effusion identified. No pneumothorax apparent. Potential minor fissure thickening unchanged. CARDIOVASCULAR: Calcific atherosclerotic changes are seen related to the thoracic aorta. Normal cardiac size. No pulmonary vascular congestion. OSSEOUS STRUCTURES: No significant abnormalities. VISUALIZED UPPER ABDOMEN: Normal. OTHER FINDINGS: None. IMPRESSION: Stable COPD pattern as well as right perihilar fibrosis/minor fissure thickening. No acute cardiopulmonary disease appreciable at this time.
--- NOTE | 2018-10-10 10:55 | CT ---
Date of service: 10/10/2018 PROCEDURE: CT HEAD WITHOUT CONTRAST. HISTORY: Headache COMPARISON: 08/18/2017. TECHNIQUE: Axial computed tomography images were obtained through the head/brain without intravenous contrast. Radiation dose: Total exam DLP = 934.98 mGy-cm. This CT exam was performed using one or more of the following dose reduction techniques: Automated exposure control, adjustment of the mA and/or kV according to patient size, and/or use of iterative reconstruction technique. FINDINGS: HEMORRHAGE: No intracranial hemorrhage. BRAIN: There are moderate chronic microangiopathic changes. There is no mass, mass effect or abnormal extra-axial fluid collection. There is no territorial infarction. The midline sagittal structures are normal.There are coarse atherosclerotic calcifications in the cavernous carotid arteries. VENTRICLES: There is mild age-related global parenchymal volume loss and proportionate enlargement of the ventricles and cortical sulci. CALVARIUM: There is no calvarial fracture or extracranial soft tissue swelling. PARANASAL SINUSES: There is mild polypoid mucosal thickening and a small retention cyst/polyp in the right maxillary sinus. The remaining included paranasal sinuses are clear. MASTOID AIR CELLS: Predominantly clear. OTHER FINDINGS: None. IMPRESSION: No acute intracranial abnormality. Moderate chronic microangiopathic changes and mild age-related global parenchymal volume loss. A preliminary report was provided by [email or web address]
--- NOTE | 2018-10-10 11:28 | CT ---
Date of service: 10/10/2018 PROCEDURE: CT Chest without contrast HISTORY: back pain COMPARISON: Chest CT without contrast 09/14/2018. TECHNIQUE: Contiguous axial images were obtained through the chest without intravenous contrast enhancement. Sagittal and coronal reconstructions were performed. Radiation dose: Total exam DLP = 148.16 mGy-cm. This CT exam was performed using one or more of the following dose reduction techniques: Automated exposure control, adjustment of the mA and/or kV according to patient size, and/or use of iterative reconstruction technique. FINDINGS: LUNGS: Biapical fibrotic changes are reiterated. No acute infiltrate appreciated bilaterally although right middle and lingular bronchiectasis is unchanged, greater the right than left sides with central airways otherwise clear. Related volume loss of the right middle and upper lobes is reiterated. Frequent scattered pulmonary nodules are reiterated, stable. Improved aeration is identified at the bilateral lung bases with limited residual linear atelectasis, right greater than left lung base. 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 MEDIASTINUM: Thoracic inlet is remarkable for 10 mm right lower lobe thyroid nodule once again. Non aneurysmal but atherosclerotic thoracic aorta is appreciated with partial calcification. Normal sized heart. Main pulmonary artery unremarkable. No vascular congestion. No lymphadenopathy. No aortic atherosclerotic calcification. PLEURA: No pleural fluid. No pneumothorax. BONES: Anterior wedge compression fractures of T6, T8, T10 and T12 are reiterated and possibly minimally T1 as well. Heterogeneous density is subtle and may reflect bony metastasis. Follow-up nuclear whole-body bone scan is advised once again. UPPER ABDOMEN: Multiple hepatic lucencies again evident, stable. OTHER FINDINGS: None. IMPRESSION: Stable bronchiectasis and associated volume loss at the right middle lobe and lingula though lingula is minimally affected once again. Scattered but infrequent and stable pulmonary nodules bilaterally. No interval consolidation, pleural effusion or pneumothorax identified. No significant lymphadenopathy. Multiple thoracic vertebral body compression fractures reiterated, stable appearing, with inhomogeneous occasional density suspicious for potential metastasis follow-up nuclear bone scan advised once again. Small right thyroid lobe lesion once again evident. Thyroid ultrasound recommended for follow-up. Preliminary report provided by [facility], 10/10/2018, 1:02 a.m..
== END 2018-10-10 06:58 | disposition home or self-care (01) ==
LOC: H.ER 20:36
DX: M54.9 Dorsalgia, unspecified (principal); J98.11 Atelectasis; D64.9 Anemia, unspecified; Z88.0 Allergy status to penicillin; J44.0 Chronic obstructive pulmonary disease with (acute) lower respiratory infection